=== PATIENT | female | born 1980 | race Caucasian/White ===

== ENCOUNTER 2022-04-14 14:41 | Emergency (ER) | payer OTHER, SELFPAY ==
[2022-04-14 14:52] VITALS: BP 126/84; PULSE 220; RESP 18; TEMP 35.8; O2SAT 98; BMI 29.1
--- NOTE | 2022-04-14 14:58 | ED.GENADULT ---
HPI - General Adult General Time Seen by Provider: 14:58 Date Seen: 04/14/22 Chief complaint: Arrhythmia/Palpitations Stated complaint: SVT Episode Time Seen by Provider: 04/14/22 14:42 Source: patient and RN notes reviewed Mode of arrival: ambulatory Limitations: no limitations History of Present Illness HPI narrative: This 42-year-old female felt her 3rd episode of SVT start today. This is the 3rd 1 within a week. Normally she can do Valsalva type maneuvers and has different maneuvers that she can get resolved, it usually always under 30 minutes. She has seen electrophysiology and they had discussed possibly doing ablation at some point. At that time however, was more infrequent. It has increased in frequency through the years. She is starting to have it more than once a year maybe having it every couple months. This last week she had it 3 times. She feels it more of a vibration or fluttering in her neck, she states it is almost like a choking sensation, no chest pain no shortness of breath. She basically admits she came in to get an EKG as they have never documented on EKG before. We did get an EKG and she indeed was in SVT. Nursing staff was attempting to get an IV in her and I was talking to her about adenosine. She did not want to do this as she states it always goes away in under 30 minutes. It has not been prolonged today. She will normally get it when she goes to stand up. A little over a month ago she did have COVID, she tested positive for about 13 days, has been negative for 2 weeks. She did test for cure. She got COVID on a work trip to [place]. She is completely symptom-free and has not had any symptoms for 2 weeks. Well we were discussing all of this she cardioverted on her own back to sinus rhythm, intermittent very mild sinus tachycardia but under 110. She does have propranolol at home but did not take it today. Given these spells resolve quickly, she is not even sure that propranolol does help. Related Data Home Medications Medication Instructions Recorded Confirmed loratadine 10 mg tablet (Allergy 10 mg PO QDAY 03/04/22 03/04/22 Relief (loratadine)) Previous Rx's Medication Instructions Recorded metoprolol succinate 25 mg 25 mg PO DAILY #90 tabs 04/14/22 tablet,extended release 24 hr Allergies Allergy/AdvReac Type Severity Reaction Status Date / Time tetracycline Allergy Mild Rash Verified 04/14/22 15:02 Review of Systems Status of ROS: Reports: 6 or more systems reviewed and unremarkable except as noted in History and below [facility] Medical History (Updated 04/14/22 @ 15:27 by Loyda Penaloza MD) History of tachycardia Pre-procedural laboratory examination Social History Smoking Status: Former smoker What tobacco products do you use: cigarettes Smoking quit date/years: <= 15 years ago Do you use any of these nicotine containing products: None Second hand tobacco smoke exposure: Yes How often do you have a drink containing alcohol: never How often do you have six or more drinks on one occasion: Never AUDIT-C Alcohol total score: 0 Non-prescribed substance use: denies use service: No Exam Const: Vital Signs, click to edit/add: Vital Signs - 24 hr 04/14/22 14:52 04/14/22 15:35 04/14/22 15:00 Temperature 96.5 F L Pulse Rate [Apical ] 220 H 101 H Respiratory Rate 18 16 Blood Pressure [Le ft Upper Arm] 126/84 131/81 120/87 Pulse Oximetry 98 98 Oxygen Delivery Me thod Room Air Documenting provider has reviewed patient's vital signs: yes Common normals: no apparent distress, average body habitus, oriented x3, no limitations, healthy appearing, alert and well nourished General appearance: cooperative, comfortable and well kempt HENMT: Common normals: normocephalic, head/scalp atraumatic, hearing grossly normal bilaterally and external ears normal Head and scalp: normocephalic and atraumatic External ear: external ears normal Eye: Common normals: PERRL, EOMs intact bilaterally, conjunctivae normal and no scleral icterus Conjunctiva: conjunctiva(e) normal Pupil: PERRL Neck & C-Spine: Common normals: full ROM, no lymphadenopathy, supple, no meningeal signs, no JVD and thyroid normal Thyroid: thyroid normal Resp: Common normals: normal respiratory effort, no retractions, no use of accessory muscles and clear to auscultation bilaterally Auscultation: clear to auscultation bilaterally Cardio: Common normals: no JVD, regular rate, regular rhythm, S1 normal heart sound, S2 normal heart sound, no gallops, no clicks and no murmurs Rate: regular rate Rhythm: regular rhythm Heart sounds: S1 normal and S2 normal GI: Common normals: Normal to inspection, nondistended, normoactive bowel sounds present, soft to palpation, non-tender, no hepatosplenomegaly and no masses Palpation: soft and no hepatosplenomegaly Extremity: Common normals: normal to inspection, full ROM, normal capillary refill, no joint enlargement, no clubbing, cyanosis or edema, no calf tenderness and no pedal edema Neuro: Common normals: oriented x3 Sensorium/orientation: alert Meningeal signs: no meningeal signs Psych: Appearance: well kempt Course Course Hospital Course: She cardioverted herself. We will check some labs. I will talk to Cardiology. Will keep her on pulse oximetry and cardiac monitoring while here. Consultations Consultation #1: Spoke with Dr. Allison from [facility], on-call Cardiology. Reviewed the situation with the current SVT that she has been having. He agreed with initiating low-dose suppression medication. He usually does go with a beta-andrea. We have discussed initiating metoprolol 25 mg of the extended release daily until she can follow up with Dr. Mitchell. He agreed with this plan. Time: 15:05 Vital Signs Vital signs: Initial Vital Signs Temperature 96.5 F L 04/14/22 14:52 Temperature Source Temporal Artery Scan 04/14/22 14:52 Pulse Rate 220 H 04/14/22 14:52 Pulse Rhythm 04/14/22 14:52 Respiratory Rate 18 04/14/22 14:52 Blood Pressure 126/84 04/14/22 14:52 Blood Pressure Mean 98 04/14/22 14:52 Blood Pressure Position Supine 04/14/22 14:52 Pulse Oximetry 98 04/14/22 14:52 Oxygen Delivery Method 04/14/22 14:52 Vital Signs Temperature 96.5 F L 04/14/22 14:52 Pulse Rate 220 H 04/14/22 14:52 Respiratory Rate 18 04/14/22 14:52 Blood Pressure 126/84 04/14/22 14:52 Pulse Oximetry 98 04/14/22 14:52 Oxygen Delivery Method 04/14/22 14:52 Temperature 96.5 F L 04/14/22 14:52 Pulse Rate 101 H 04/14/22 15:35 Respiratory Rate 16 04/14/22 15:35 Blood Pressure 131/81 04/14/22 15:35 Pulse Oximetry 98 04/14/22 15:35 Oxygen Delivery Method 04/14/22 14:52 Medical Decision Making Lab Data Lab results reviewed: Yes I reviewed the patient's lab results Labs: Lab Results 04/14/22 04/14/22 04/14/22 Range/Units 15:15 15:15 15:15 WBC 4.94 (4.50-11.00) K/uL RBC 4.44 (4.00-5.20) m/uL Hgb 13.3 (12.0-16.0) gm/dL Hct 38.7 (33.0-51.0) % MCV 87 (80-100) fL MCH 30 (26-34) pg MCHC 34 (32-36) gm/dL RDW Coeff of Ruben 11.9 (11.5-15.5) % Plt Count 251 (140-440) K/uL Neut % (Auto) 51.5 (42.0-72.0) % Lymph % (Auto) 36.8 (20-44) % Sanders % (Auto) 7.5 (0.0-11.0) % Eos % (Auto) 3.2 (0.0-7.0) % Baso % (Auto) 0.6 (0.0-3.0) % Neut # (Auto) 2.54 (1.7-7.0) K/uL Lymph # (Auto) 1.82 (0.90-2.90) K/uL Sanders # (Auto) 0.40 (0.00-0.90) K/UL Eos # (Auto) 0.16 (0.00-0.50) K/uL Baso # (Auto) 0.03 (0.00-0.30) K/uL Abs Immat Gran (auto) 0.02 (0.00-0.30) K/uL Sodium 138 (135-149) mmol/L Potassium 3.8 (3.6-5.1) mmol/L Chloride 105 (96-114) mmol/L Carbon Dioxide 23 (20-32) mmol/L BUN 9 (5-24) mg/dL Creatinine 0.7 (0.5-1.5) mg/dL Estimated Creat Clear 96.01 Estimated GFR 109 ml/min Glucose 154 H (60-115) mg/dL Calcium 8.2 L (8.4-10.6) mg/dL Magnesium 1.8 (1.5-2.6) mg/dL TSH 3.200 (0.270-4.200) uIU/mL POC Troponin I (0.01-0.04) ng/ml 04/14/22 Range/Units 15:15 WBC (4.50-11.00) K/uL RBC (4.00-5.20) m/uL Hgb (12.0-16.0) gm/dL Hct (33.0-51.0) % MCV (80-100) fL MCH (26-34) pg MCHC (32-36) gm/dL RDW Coeff of Ruben (11.5-15.5) % Plt Count (140-440) K/uL Neut % (Auto) (42.0-72.0) % Lymph % (Auto) (20-44) % Sanders % (Auto) (0.0-11.0) % Eos % (Auto) (0.0-7.0) % Baso % (Auto) (0.0-3.0) % Neut # (Auto) (1.7-7.0) K/uL Lymph # (Auto) (0.90-2.90) K/uL Sanders # (Auto) (0.00-0.90) K/UL Eos # (Auto) (0.00-0.50) K/uL Baso # (Auto) (0.00-0.30) K/uL Abs Immat Gran (auto) (0.00-0.30) K/uL Sodium (135-149) mmol/L Potassium (3.6-5.1) mmol/L Chloride (96-114) mmol/L Carbon Dioxide (20-32) mmol/L BUN (5-24) mg/dL Creatinine (0.5-1.5) mg/dL Estimated Creat Clear Estimated GFR ml/min Glucose (60-115) mg/dL Calcium (8.4-10.6) mg/dL Magnesium (1.5-2.6) mg/dL TSH (0.270-4.200) uIU/mL POC Troponin I 0.00 L (0.01-0.04) ng/ml Imaging Data Chest x-ray: Attestation: I have reviewed the pertinent imaging results. My impression: My preliminary review of her portable chest x-ray is without acute cardiopulmonary pathology, wait radiology over read. Radiologist's impression: Patient: JE GRACIA Facility:?[facility] Patient ID:?[id number] Site Patient ID:?[id number]. Site :?1980 Study:?XRay Chest PORTABLE-04/14/2022 3:33:09 PM Ordering Physician:Rey Scales Final Report: INDICATION: SVT. TECHNIQUE: Chest 1 views. COMPARISON: Chest x-ray from 07/21/2018. FINDINGS: Lungs: Clear lungs. No consolidation. Pleura: No pleural effusion or pneumothorax. Heart and Mediastinum: The cardiomediastinal silhouette is normal. The vessels are unremarkable. Bones: Unremarkable. IMPRESSION: No acute cardiopulmonary disease. Dictated by Gregorio Burton MD @ 04/14/2022 3:47:11 PM (Electronic Signature) ECG Data Attestation: I personally reviewed and interpreted this ECG as follows: (sinus tachycardia at 211 bpm.) Prior ECG tracings: not available for review Critical Care Time Critical Care Time Critical Care Time: No Discharge Plan Discharge Clinical Impression: Paroxysmal supraventricular tachycardia Condition: Stable Instructions: Supraventricular Tachycardia (ED) Additional Instructions: Start metoprolol and take daily to suppress the SVT. Need to call your hay chopper's office to get scheduled for followup. If you have further episodes that are not resolving within the 30 minutes that you typically you would expect them to, would recommend further evaluation. We will contact you if there is any concerns with the pending lab results at time of discharge. Activity Level: Activity as Tolerated Discharge Diet: Regular Prescriptions: New metoprolol succinate 25 mg tablet extended release 24 hr 25 mg PO DAILY Qty: 90 1RF No Action loratadine [Allergy Relief (loratadine)] 10 mg tablet 10 mg PO QDAY Follow Up/Referrals: Alysia Longoria MD [Primary Care Provider] - Stand Alone Forms: MyHealth Info Instructions
[2022-04-14 15:00] VITALS: BP 120/87
--- NOTE | 2022-04-14 15:16 | CRLHL7_ITS ---
For Patients: As a result of the Cures Act, medical imaging exams and procedure reports are released immediately into your electronic medical record. You may view this report before your referring provider. If you have questions, please contact your health care provider. INDICATION: SVT. TECHNIQUE: Chest 1 views. COMPARISON: Chest x-ray from 07/21/2018. FINDINGS: Lungs: Clear lungs. No consolidation. Pleura: No pleural effusion or pneumothorax. Heart and Mediastinum: The cardiomediastinal silhouette is normal. The vessels are unremarkable. Bones: Unremarkable. IMPRESSION: No acute cardiopulmonary disease. Dictated by Gregorio Burton MD @ 04/14/2022 3:47:11 PM (Electronically Signed)
[2022-04-14 15:25] LABS: Basophils Absolute Auto 0.03 K/uL (0.00-0.30); Basophils Percent Auto 0.6 % (0.0-3.0); Eosinophils Absolute Auto 0.16 K/uL (0.00-0.50); Eosinophils Percent Auto 3.2 % (0.0-7.0); Hematocrit 38.7 % (33.0-51.0); Hemoglobin* 13.3 gm/dL (12.0-16.0); Immature Granulocytes Abs Auto 0.02 K/uL (0.00-0.30); Lymphocytes Absolute Auto 1.82 K/uL (0.90-2.90); Lymphocytes Percent Auto 36.8 % (20-44); Mean Corpuscular HGB Conc 34 gm/dL (32-36); Mean Corpuscular Hemoglobin 30 pg (26-34); Mean Corpuscular Volume 87 fL (80-100); Monocytes Percent Auto 7.5 % (0.0-11.0); Neutrophils Absolute Auto 2.54 K/uL (1.7-7.0); Neutrophils Percent Auto 51.5 % (42.0-72.0); Platelet Count* 251 K/uL (140-440); RDW Coefficient of Variation % 11.9 % (11.5-15.5); Red Blood Count 4.44 m/uL (4.00-5.20); White Blood Count* 4.94 K/uL (4.50-11.00)
--- OUTSIDE RECORDS SUMMARY | 2022-04-14 15:28 | XMS_ITS | Encounter Summary ---
:1980 Author Organization [place] Address [address] [place] [address] Care Team Providers Name Role Phone Quan Jimenez MD Primary Care Provider Reason for Visit Reason Onset Date Comments Care 07/12/2004 preg confirmation Encounter Details Date Type Department Care Team Description 07/12/2004 Telephone [facility] Quan Jimenez M D Care (preg Clinic [address] confirmation) [address] [place] [address] [place] [address] Social History Tobacco Use Types Packs/Day Years Used Date Current Every Day Smoker 1 6 Spencer t: 04/28/2003 Alcohol Use Standard Drinks/Week Comments Yes 1.7 (1 standard drink = 0.6 oz pure alco hol) occasional drinks Sex Assigned at Date Recorded Not on file documented as of this encounter Miscellaneous Notes Telephone Encounter - 07/12/2004 8:34 AM VEGETABLE BUNCHER >> HOME OBANDO MonJul 12, 2004 8:37 AM Patient reports is 5 weeks ; wonders if ok to continue to take minocycline and to use nicoti ne patch; suggest appt for preg confirmation and to discuss smok cessation; hold minocycline until appt. Patient states will check with 's insurance and schedule preg confimation/smok cess a ppt with authorized provider. Home Obando RN >> HOME OBANDO MonJul 12, 2004 8:34 AM Staff Message copied by HOME OBANDO on 07/12/2004 at 8:34 AM ------ Message from: COTY BARRAGAN: 07/12/2004 at 8:06 AM Regarding: ts pt and has a question about first visit to [facility] [phone] documented in this encounter Plan of Treatment Not on filedocumented as of this encounter Visit Diagnoses Not on filedocumented in this encounter Care Teams Design Engineer Agricultural Equipment Relationship Specialty Start Date End Date Quan Jimenez MD PCP - General 01/02/03 02/12/[address] [place] [id number] documented as of this encounter
--- OUTSIDE RECORDS SUMMARY | 2022-04-14 15:28 | XMS_ITS | Encounter Summary ---
:1980 Author Organization [place] Address [facility] [place] [address] Care Team Providers Name Role Phone Quan Jimenez MD Primary Care Provider Reason for Visit Reason Onset Date Comments Medication Request 01/28/2004 Encounter Details Date Type Department Care Team Description 01/28/2004 Telephone [facility] Slime Benson, Medication Request Sanchez Rodriguez MD [address] [facility] [address] [place], [place] [address] [place], [place] [phone] (Wo rk) Social History Tobacco Use Types Packs/Day Years Used Date Current Every Day Smoker 1 6 Spencer t: 04/28/2003 Alcohol Use Standard Drinks/Week Comments Yes 1.7 (1 standard drink = 0.6 oz pure alco hol) occasional drinks Sex Assigned at Date Recorded Not on file documented as of this encounter Miscellaneous Notes Telephone Encounter - 01/28/2004 1:05 PM CDT >> SUSHMA GUTIERREZ MonFeb 04, 2004 12:09 PM Why was this sent to me? was this by mistake? Dr. Marvin has been dealing with this, thanks. >> MELANIE SCHRADER MonFeb 04, 2004 12:[address] Marvin, do you mind signing off on this and closing the encounter for Lilia GOMEZ at [facility] who called in Diflucan per message below? Sandeep Schrader RN >> LILIA CONTEH MonJan 30, 2004 1:20 PM Pt. calling back. Never got Diflucan called in. Is on Amox and has thick white dc and itching. Is current on paps, so I called in Diflucan 200mg #2 to pharmacy. Please sign and close. Lilia Conteh RN >> PAPITO MARVIN [facility] Jan 29, 2004 6:56 PM Melanie, Reviewing her visit from 12/22 i see that she had findings of BV on her pap. I wonder if that has been treated. She may need a wet prep to see what infection she actually has. Can you call her and see if she can come in and be checked by someone soon thanks, SHAYNE >> MELANIE SCHRADER MonJan 28, 2004 6:24 PM Papito, I spoke with patient who has tried OTC's for yeast in the past and they have caused rash,chapp ed skin. Patient is wondering if you will prescribe med for her. Thanks! Sandeep Schrader RN >> MELANIE SCHRADER MonJan 28, 2004 1:06 PM Please see message below, patient requesting RX for yeast infection, does she need to be seen first? Sandeep Schrader RN >> MELANIE SCHRADER [facility] Jan 28, 2004 1:05 PM Staff Message copied by MELANIE SCHRADER on 01/28/2004 at 1:05 PM ------ Message from: JORGE HODGES Created: 01/27/2004 at 12:21 PM Regarding: ef-meds Contact: can she get a rx for a yeast infection? was just in with ere for a px?? would like a call back , uses [facility] in [place] . documented in this encounter Plan of Treatment Not on filedocumented as of this encounter Visit Diagnoses Not on filedocumented in this encounter Care Teams Engineer Booster And Exhauster Relationship Specialty Start Date End Date Quan Jimenez MD PCP - General 01/02/03 02/12/[address] [place] [phone] documented as of this encounter
--- OUTSIDE RECORDS SUMMARY | 2022-04-14 15:28 | XMS_ITS | Encounter Summary ---
:1980 Author Organization [place] Address [address] [place] [address] Care Team Providers Name Role Phone Quan Jimenez MD Primary Care Provider Reason for Visit Reason Comments RECHECK Med check Confirmation Of Positive test at h ome Encounter Details Date Type Department Care Team Description [facility] ABSENCE OF [facility]EN[facility]ATION (Primary Dx); Clinic [address], [address] [address] [place], [place] [phone] (Wo rk) [address] [phone] Social History Tobacco Use Types Packs/Day Years Used Date Current Every Day Smoker Cigarettes 0.5 10 Spencer t: 04/28/2003 Alcohol Use Standard Drinks/Week Comments Yes 1.7 (1 standard drink = 0.6 oz pure alco hol) occasional drinks Sex Assigned at Date Recorded Not on file documented as of this encounter Last Filed Vital Signs Vital Sign Reading Time Taken Comments Blood Pressure 122/64 07/14/2004 4:10 PM TELEGRAPH PLANT MAINTAINER Pulse - - Temperature 37.2 ??C (99 ??F) 07/14/2004 4:10 PM TELEGRAPH PLANT MAINTAINER Respiratory Rate - - Oxygen Saturation - - Inhaled Oxygen Concentration - - Weight 61.7 kg (136 lb) 07/14/2004 4:10 PM TELEGRAPH PLANT MAINTAINER Height - - Body Mass Index - - documented in this encounter Progress Notes 07/14/2004 4:00 PM TELEGRAPH PLANT MAINTAINER SUBJECTIVE: Jeanine is a 24 year old female who presents for: on minocin/tazarac for acne, seeing seeing dr perez, doing well lmp = 10-7-04 - using NFP, noting breast tenderness only, no nausea, no other concerns, discussed exercise, smoking - desires to use use low dose patch, cleans cat litter boxes Patient Active Problem List: GENITAL HERPES NOS[054.10] ATYP SQ CELL CHNG UNDET SIG FAV DYS[795.02] ACNE NEC[706.1] ROUTINE MEDICAL EXAM[V70.0] Review of patient's past medical history indicates: ACNE NEC 1999 Comment: dr iglesias STOMACH ULCER NOS 1990 GENITAL HERPES NOS PAP SMEAR OF CERVIX W ASC-H POSSIBLE HSIL 97, 98 Comment: paps nl since OVARIAN CYST NEC/NOS 97, 99 ANIMAL BITE NEC 92 Comment: hosp x 1 week after cat bite Review of patient's past surgical history indicates: HISTORY OF SURGERY = NONE Current prescriptions: MINOCIN 100 MG OR CAPS 1 CAPSULE EVERY 12 HOURS Review of the patient's allergies finds: Doxycycline rash Review of Systems: As above otherwise negative Examination: GENERAL APPEARANCE: healthy, alert, no distress ASSESSMENT: 626.0 ABSENCE OF MENSTRUATION (primary encounter diagnosis) V22.2 PREG STATE, INCIDENTAL PLAN: Discussed treatment/modality options, including risk and benefits, she desires observation and discuss meds with derm, no cats litter boxes, continue exercising, stop smoking, get ob care established,start vit. See [facility] orders for further details. Follow up prn. documented in this encounter Nursing Notes 07/14/2004 4:00 PM CST >> ADRIANNA GARCIA 07/14/2004 4:11 pm Initial BP 122/64 Temp (Src) 99 (Oral) Wt 136 lbs (61.7kg) completed using BP cuff size: regular. Adrianna Garcia RN documented in this encounter Plan of Treatment Not on filedocumented as of this encounter Procedures Procedure Name Priority Date/Time Associated Diagnosis Comme nts ZZCL AFF HCG, QUAL Routine 07/14/2004 4:13 PM Absence Of Res ults for this URINE TELEGRAPH PLANT MAINTAINER Menstruation procedure are i n the results section. documented in this encounter Results (ABNORMAL) HCG, QUAL URINE (07/14/2004 4:13 PM TELEGRAPH PLANT MAINTAINER) [facility] Method Time Signature HCG Qual Urine Positive (A) NEG [facility] Specimen Anatomical Collection Method Collection Time Receive d Time (Source) Location / / Volume Laterality 07/14/2004 4:13 PM 4:14 TELEGRAPH PLANT MAINTAINER PM TELEGRAPH PLANT MAINTAINER Quan Jimenez MD LABORATORY Performing Organization Address City/State/ZIP Code Phon e Number [facility] [address] [place] [phone] [facility] documented in this encounter Visit Diagnoses Diagnosis Absence of menstruation - Primary state, incidental documented in this encounter Care Teams Statement Request Clerk Relationship Specialty Start Date End Date Quan Jimenez MD PCP - General 01/02/03 02/12/[address] [place] [phone] documented as of this encounter
--- OUTSIDE RECORDS SUMMARY | 2022-04-14 15:28 | XMS_ITS | Encounter Summary ---
:1980 Author Organization [place] Address [facility] [place] [address] Care Team Providers Name Role Phone [facility] Primary Care Provider [phone] Encounter Details Date Type Department Care Team Description 07/26/2020 Orders Only [facility] Ciera Tomlinson Encounter for Christie Kebede OR MD Virgilio screening for other [address] COLON RECTAL viral diseases [place], [place] SURGERY (Primary Dx) [phone] [facility] [phone] [place] [address] Social History Tobacco Use Types Packs/Day Years Used Date Former Smoker Cigarettes 0.5 10 Quit: 04/28/20 03 Smokeless Tobacco: Never Used Alcohol Use Standard Drinks/Week Comments Yes 1.7 (1 standard drink = 0.6 oz pure alco hol) occasional drinks Sex Assigned at Date Recorded Not on file COVID-19 Exposure Response Date Recorded In the last month, have you been in contact with No / Unsure 07/20/2020 3:28 PM DATABASE ADMIN someone who was confirmed or suspected to have Coronavirus / COVID-19? documented as of this encounter Plan of Treatment Scheduled Orders Name Type Priority Associated Diagnoses Order S chedule COVID-19 Virus Microbiology Routine Encounter for screening Ex pected: 07/26/2020 (Coronavirus) by for other viral (Approxi mate), PCR diseases Expires: 2020 documented as of this encounter Visit Diagnoses Diagnosis Encounter for screening for other viral diseases - Primary documented in this encounter Care Teams Gas Attendant Relationship Specialty Start Date End Date [facility] PCP - General 06/06/[address] [place] [phone] documented as of this encounter
--- OUTSIDE RECORDS SUMMARY | 2022-04-14 15:28 | XMS_ITS | Encounter Summary ---
:1980 Author Organization [place] Address [facility] [place] [address] Care Team Providers Name Role Phone [facility] Primary Care Provider [phone] Encounter Details Date Type Department Care Team Description 06/30/2020 Orders Only [facility] Ciera Tomlinson Encounter for Christie Kebede OR MD Virgilio screening for other [address] COLON RECTAL viral diseases [place], [place] SURGERY (Primary Dx) [id number] 2787 [facility] [phone] [place] [address] Social History Tobacco Use Types Packs/Day Years Used Date Current Every Day Smoker Cigarettes 0.5 10 Psencer t: 04/28/2003 Alcohol Use Standard Drinks/Week Comments Yes 1.7 (1 standard drink = 0.6 oz pure alco hol) occasional drinks Sex Assigned at Date Recorded Not on file documented as of this encounter Plan of Treatment Scheduled Orders Name Type Priority Associated Diagnoses Order S chedule COVID-19 Virus Microbiology Routine Encounter for screening Ex pected: 06/30/2020 (Coronavirus) by for other viral (Approxi mate), PCR diseases Expires: 2020 documented as of this encounter Visit Diagnoses Diagnosis Encounter for screening for other viral diseases - Primary documented in this encounter Care Teams Setter Cold Rolling Machine Relationship Specialty Start Date End Date [facility] - [facility] 06/06/16 [address] [place] [address] documented as of this encounter
--- OUTSIDE RECORDS SUMMARY | 2022-04-14 15:28 | XMS_ITS | Encounter Summary ---
:1980 Author Organization [place] Address [address] [place] [address] Care Team Providers Name Role Phone [facility] Primary Care Provider [phone] Encounter Details Date Type Department Care Team Description 07/24/2018 Orders Only [facility] ERR ONEOUS [facility] ENCOUNTER--DISREGARD [address] [facility] [address] [place] [address] Social History Tobacco Use Types Packs/Day Years Used Date Current Every Day Smoker Cigarettes 0.5 10 [place] t: 04/28/2003 Alcohol Use Standard Drinks/Week Comments Yes 1.7 (1 standard drink = 0.6 oz pure alco hol) occasional drinks Sex Assigned at Date Recorded Not on file documented as of this encounter Plan of Treatment Not on filedocumented as of this encounter Visit Diagnoses Diagnosis ERRONEOUS ENCOUNTER--DISREGARD - Primary documented in this encounter Care Teams Water Resource Engineering Specialist Relationship Specialty Start Date End Date [facility] - [facility] [place] [address] documented as of this encounter
--- OUTSIDE RECORDS SUMMARY | 2022-04-14 15:28 | XMS_ITS | Encounter Summary ---
:1980 Author Organization [place] Address [address] [place] [address] Care Team Providers Name Role Phone Clinic, [facility] Primary Care Provider [phone] Reason for Visit Reason Comments Tachycardia Encounter Details Date Type Department Care Team Description 06/06/2016 Emergency [facility] Ernie Holden S inus tachycardia [facility] Emergency Dep t [address] [facility] [place], [place] [address] [facility] [address] [place] [address] [phone] (Wo rk) Social History Tobacco Use Types [...] Sign Reading Time Taken Comments Blood Pressure 122/87 06/06/2016 9:07 AM CDT Pulse 105 06/06/2016 9:08 AM CDT Temperature 36.6 ??C (97.9 ??F) 06/06/2016 9:07 AM CDT Respiratory Rate 18 06/06/2016 9:07 AM CDT Oxygen Saturation 100% 06/06/2016 10:30 AM CDT Inhaled Oxygen Concentration - - Weight - - Height - - Body Mass Index - - documented in this encounter Discharge Instructions AttachmentsThe following attachments cannot be sent through Care Everywhere. TACHYCARDIA: PAT (IRISH)documented in this encounter Medications at Time of Discharge Medication Sig Dispensed Refills Start Date End Date levothyroxine (SYNTHROID) Take by mouth 0 07/20/2020 25 mcg/mL daily. documented as of this encounter ED Notes Ernie Holden MD - 06/06/2016 10:11 AM CDT History Chief Complaint: Tachycardia HPI Jeanine Samano is a 36 year old female who presents with tachycardia. The patient woke up this morning feeling unwell with some associated dizziness and shortness of breath. Blood pressure was 99/60 using 's monitor. Symptoms resolved spontaneously so she went to work, while there she had recurrence of symptoms. She works at [employer] so she went and used their machines which put her heart rate at 123 and blood pressure at 138/86 prompting visit to the emergency department. Patient does endorse current allergy symptoms including some congestion, post-nasal drip for which shehas been taking an occasional 12 hour Sudafed, last dose at 1000 yesterday. She does note missing a couple doses of her thyroid medication over the past week as well. She denies any chest pains, palpitations, dysuria, increased frequency of urination, rash, known sick contacts, or other complaints. Patient's LMP was within the last month and states she is 1,000% sure she is not . CARDIAC RISK FACTORS: Sex: F Tobacco: Current every day smoker Hypertension: Neg Hyperlipidemia: Neg Diabetes: Neg Family History: Neg PE/DVT RISK FACTORS: Sex: F Hormones: Neg Tobacco: Current every day smoker Cancer: Neg Travel: Neg Surgery: Neg Other immobilization: Neg Personal history: Neg Family history: Neg Allergies: Doxycycline - Rash Seasonal allergies Medications: Levothyroxine Claritin Past Medical History: Genital herpes Pap smear with ASC-H Ovarian cyst Gastric ulcer Thyroid disease Past Surgical History: History reviewed. No pertinent surgical history. Family History: Mother - Depression, age 49 from suicide, alcoholism Father - CAD, HTN, lipids Social History: Presents alone Tobacco use: Current every day smoker, 0.50 PPD for 10 years, last quit attempt 04/2003 Alcohol use: Occasional Marital Status: Review of Systems HENT: Positive for congestion and postnasal drip. Respiratory: Positive for shortness of breath. Cardiovascular: Negative for chest pain and palpitations. + tachycardia Genitourinary: Negative for dysuria and frequency. Skin: Negative for rash. Neurological: Positive for dizziness. All other systems reviewed and are negative. Physical Exam Patient Vitals for the past 24 hrs: BP Temp Temp src Pulse Heart Rate Resp SpO2 06/06/16 1030 - - - - 89 - 100 % 06/06/16 1015 - - - - 105 - 100 % 06/06/16 1002 - - - - 99 - 99 % 06/06/16 1001 - - - - 90 - 99 % 06/06/16 1000 - - - - 97 - 100 % 06/06/16 0959 - - - - 98 - 100 % 06/06/16 0950 - - - - 93 - 99 % 06/06/16 0949 - - - - 100 - 100 % 06/06/16 0948 - - - - 91 - 100 % 06/06/16 0908 - - - 105 - - - 06/06/16 0907 122/87 mmHg 97.9 ??F (36.6 ??C) Temporal 125 - 18 100 % Physical Exam Nursing note and vitals reviewed. Constitutional: Cooperative. HENT: Mouth/Throat: Moist mucous membranes. Eyes: EOMI, nonicteric sclera Cardiovascular: Tachycardic, regular rhythm, no murmurs, rubs, or gallops Pulmonary/Chest: Effort normal and breath sounds normal. No respiratory distress. No wheezes. No rales. Abdominal: Soft. Nontender, nondistended, no guarding or rigidity. BS present. Musculoskeletal: Normal range of motion. Neurological: Alert. Moves all extremities spontaneously. Skin: Skin is warm and dry. No rash noted. Psychiatric: Normal mood and affect. Emergency Department Course ECG (09:38:25): Rate 101 bpm. CO interval 146. QRS duration 86. QT/QTc 344/446. P-R-T axes 75 -9 52. Sinus tachycardia. Otherwise normal ECG. Interpreted at 0958 by Ernie Holden MD. Imaging: Radiographic findings were communicated with the patient who voiced understanding of the findings. XR Chest: IMPRESSION: Cardiac silhouette and pulmonary vasculature are within normal limits. No focal airspacedisease, pleural effusion or pneumothorax. BRADLEY CAMACHO Preliminary result per radiology. Laboratory: CBC: WNL (WBC 5.4, HGB 14.8, PLT 229) BMP: Calcium 8.4 (L) ow WNL (Creatinine 0.82) D-dimer: 0.4 TSH: 2.53 1035: Troponin: <0.015 UA: Spec gravity 1.001 (L), Mucous present, Amorphous crystals few, o/w Negative UPT: Negative Emergency Department Course: Past medical records, nursing notes, and vitals reviewed. 1011: I performed an exam of the patient as documented above. IV inserted and blood drawn. The patient was placed on continuous cardiac monitoring and pulse oximetry. The patient was sent for a XR while in the emergency department, findings above. I rechecked the patient. Explained findings to patient. I personally reviewed the laboratory results with the Patient and answered all related questions prior to discharge. 1227: I rechecked the patient. Findings and plan explained to the Patient. Patient discharged home with instructions regarding supportive care, medications, and reasons to return. The importance of close follow-up was reviewed. Impression & Plan Medical Decision Making: Jeanine Samano is a 36 year old female presenting with complaint of tachycardia and not feeling well. The patient is without other symptoms. Differential diagnosis was wide and includedinfection in terms of pneumonia, cellulitis, UTI, PE, hyperthyroidism, dehydration, viral illness, among other processes. The patient's workup is completely normal here. The patient's TSH is normal. Chest XR and urinalysis are also normal. The patient was give IV fluids and patient's heart rate was improved into the 80's. Patient's d-dimer was also normal ruling out PE. At this time, I am not sure ofthe etiology of patient's tachycardia however she does feel improved here in the emergency department. Patient may have had some dehydration, or she may be suffering some unknown viral illness, or she may have some process that is not fully presented itself. She is encouraged to return to the emergency department for any worsening symptoms or new symptoms. All questions were answered and she is in agreement with the plan. Diagnosis: ICD-10-CM 1. Sinus tachycardia R00.0 Resolved Disposition: Discharged to home. Gary Sharma 06/06/2016 [facility] EMERGENCY DEPARTMENT I, Gary Sharma, am serving as a scribe at 10:11 AM on 06/06/2016 to document services personally performed by Ernie Holden MD based on my observations and the provider's statements to me. Ernie Holden MD 06/07/16 1450 Gisela Rankin RN - 06/06/2016 9:07 AM CDT Patient presents to the ED reporting she awoke feeling generally unwell this morning. States took BPand pulse at home and noted HR in the 120's. States symptoms resolved, but then occurred again whileat work. Denies chest pain or palpitations, but does report mild SOB. documented in this encounter Plan of Treatment Not on filedocumented as of this encounter Procedures Procedure Name Priority Date/Time Associated Comments Diagnosis XR CHEST 2 VIEWS STAT 06/06/2016 11:07 Results for this AM CDT procedure are i n the results section. HCG QUALITATIVE URINE STAT 06/06/2016 10:46 Re sults for this AM CDT procedure are i n the results section. ROUTINE UA WITH STAT 06/06/2016 10:46 Results for this MICROSCOPIC REFLEX TO AM CDT proced ure are in CULTURE the results section. CBC WITH PLATELETS & STAT 06/06/2016 10:35 Res ults for this DIFFERENTIAL AM CDT procedure are i n the results section. TSH WITH FREE T4 STAT 06/06/2016 10:35 Results for this REFLEX AM CDT procedure are i n the results section. TROPONIN I STAT 06/06/2016 10:35 Results for this AM CDT procedure are i n the results section. D DIMER QUANTITATIVE STAT 06/06/2016 10:35 Res ults for this AM CDT procedure are i n the results section. BASIC METABOLIC PANEL STAT 06/06/2016 10:35 Re sults for this AM CDT procedure are i n the results section. EKG 12-LEAD, TRACING STAT 06/06/2016 9:38 AM R esults for this ONLY CDT procedure are i n the results section. documented in this encounter Results XR Chest 2 Views (06/06/2016 11:07 AM CDT) Anatomical Region Laterality Modality Chest Computed Radiography Specimen (Source) Anatomical Location Collection Method / Collectio n Time Received Time / Laterality Volume Impressions 06/06/2016 11:13 AM CDT IMPRESSION: Cardiac silhouette and pulmonary vasculature are within normal limits. No focal airspace disease , pleural effusion or pneumothorax. BRADLEY CAMACHO Narrative 06/06/2016 11:13 AM CDT XR CHEST 2 VW 06/06/2016 11:07 AM HISTORY: Chest pain COMPARISON: CT dated 02/13/2012 Procedure Note Bradley Camacho MD - 06/06/2016 XR CHEST 2 VW 06/06/2016 11:07 AM HISTORY: Chest pain COMPARISON: CT dated 02/13/2012 IMPRESSION: Cardiac silhouette and pulmo nary vasculature are within normal limits. No focal airspace disease , pleural effusion or pneumothorax. BRADLEY CAMACHO Ernie Holden MD IMG DIAGNOSTIC IMAGING ORDER YOSSI HCG qualitative urine (06/06/2016 10:46 AM CDT) athologist Signature HCG Qual Urine Negative NEG [facility] Specimen Anatomical Collection Method Collection Time Receive d Time (Source) Location / / Volume Laterality Urine specimen URINE SPECIMEN 06/06/2016 10:46 016 (specimen) OBTAINED BY CLEAN AM CDT 10:53 AM C DT CATCH PROCEDURE / Unknown Ernie Holden MD LAB - URINE ORDERABLES Performing Organization Address City/State/ZIP Code Phon e Number M [facility] [address] [facility] [address] [phone] (ABNORMAL) UA with Microscopic reflex to Culture (06/06/2016 10:46 AM CDT) Patholo gist Method Time Signature Color Urine Straw [facility] Appearance Urine Clear [facility] Glucose Urine Negative NEG mg/dL [facility] Bilirubin Urine Negative NEG [facility] Ketones Urine Negative NEG mg/dL [facility] Specific [place] 1.001 (L) 1.003 - [place] Urine 1.035 [facility] Blood Urine Negative NEG [facility] pH Urine 6.0 5.0 - 7.0 [facility] Protein Albumin Negative NEG mg/dL [place] Urine [facility] Urobilinogen Normal 0.0 - 2.0 [place] mg/dL mg/dL [facility] Nitrite Urine Negative NEG [facility] Leukocyte Negative NEG [place] Esterase Urine [facility] Source Midstream [facility] WBC Urine 0 0 - 2 [place] /[facility] RBC Urine 0 0 - 2 [facility] Squamous <1 0 - 1 [place] Epithelial /HPF /HPF [facility] Mucous Urine Present (A) NEG /LPF [facility] Amorphous Few (A) NEG /HPF [place] Crystals [facility] Specimen Anatomical Collection Method Collection Time Receive d Time (Source) Location / / Volume Laterality Urine specimen URINE SPECIMEN 06/06/2016 10:46 016 (specimen) OBTAINED BY CLEAN AM CDT 10:53 AM C DT CATCH PROCEDURE / Unknown Ernie Holden MD LAB - URINE ORDERABLES Performing Organization Address City/[facility]/ZIP [facility] Phon e Number [facility] [address] [phone] [place] [address] [address] [place] [address] [address] 7, [facility] [phone] TSH with free T4 reflex (06/06/2016 10:35 AM CDT) athologist Signature TSH 2.53 0.40 - 4.00 [facility] Specimen Anatomical Collection Method Collection Time Receive d Time (Source) Location / / Volume Laterality Blood specimen 06/06/2016 10:35 6 (specimen) AM CDT 10:39 AM CDT Ernie Holden MD LAB - BLOOD ORDERABLES Performing Organization Address City/[facility]/ZIP [facility] Phon e Number [facility] [address] [address] [phone] [place] [address] [address] [address], [facility] [phone] D dimer quantitative (06/06/2016 10:35 AM CDT) athologist Signature D Dimer 0.4 0.0 - 0.50 [facility] ug/ml [facility] Comment: This D-dimer assay is intended for use i n conjuntion with a clinical pretest probability assessment model to exclude pulmonary embolism (PE) and as an aid in the diagnosis of deep venous thrombo sis (DVT) in outpatients suspected of PE or DVT. The cut-off value is 0.5??g/mL FE. Specimen Anatomical Collection Method Collection Time Receive d Time (Source) Location / / Volume Laterality Blood specimen 06/06/2016 10:35 6 (specimen) AM CDT 10:39 AM CDT Ernie Holden MD LAB - BLOOD ORDERABLES Performing Organization Address [facility] Phon e Number [facility] [address] [place], [place] [address] [place] [address] [phone] Troponin I (06/06/2016 10:35 AM CDT) Patholo gist Method Time Signature Troponin I ES <0.015 0.000 - [place] The 99th percentile for uppe r reference range is 0.045 ug/L. ??Troponin values in 0.045 [facility] the range of 0.045 - 0.120 ug/L may be associated wit h risks of adverse ug/L HOSPITAL clinical events. Specimen Anatomical Collection Method Collection Time Receive d Time (Source) Location / / Volume Laterality Blood specimen 06/06/2016 10:35 6 (specimen) AM CDT 10:39 AM CDT Ernie Holden MD LAB - BLOOD ORDERABLES Performing Organization Address [facility] Phon e Number [facility] [address] [place], [place] [address] [place] [address] [phone] (ABNORMAL) Basic metabolic panel (06/06/2016 10:35 AM CDT) athologist Signature Sodium 138 133 - 144 [place] mmol/L [facility] Potassium 4.0 3.4 - 5.3 [place] mmol/L [facility] Chloride 107 94 - 109 [place] mmol/L [facility] Carbon Dioxide 25 20 - 32 [place] mmol/L [facility] Anion Gap 6 3 - 14 [place] mmol/L [facility] Glucose 92 70 - 99 [place] mg/dL [facility] Urea Nitrogen 9 7 - 30 [place] mg/dL [facility] Creatinine 0.82 0.52 - [place] 1.04 mg/dL [facility] GFR Estimate 78 >60 [place] mL/min/1.[address] Comment: Non GFR Calc GFR Estimate If Black >90 >60 mL/min/1.7m2 F [facility] GFR Calc HOSP ITAL Calcium 8.4 (L) 8.5 - 10.1 mg/dL [facility] Specimen Anatomical Collection Method Collection Time Receive d Time (Source) Location / / Volume Laterality Blood specimen 06/06/2016 10:35 6 (specimen) AM CDT 10:39 AM CDT Ernie Holden MD LAB - BLOOD ORDERABLES Performing Organization Address City/State/ZIP Code Phon e Number [address] [place] [address] [address] [address] [place] [phone] CBC with platelets differential (06/06/2016 10:35 AM CDT) [facility] Method Time Signature WBC 5.4 4.0 - [place] 11.0 [facility] 10e9/L [facility] RBC Count 4.88 3.8 - 5.2 [place] 10e12/L [facility] Hemoglobin 14.8 11.7 - [place] 15.7 g/dL [facility] Hematocrit 43.5 35.0 - [facility] 47.0 % [facility] MCV 89 78 - 100 [facility] MCH 30.3 26.5 - [facility] 33.0 pg [facility] MCHC 34.0 31.5 - [place] 36.5 g/dL [facility] RDW 11.9 10.0 - [place] 15.0 % [facility] Platelet Count 229 150 - [address] Diff Method Automated [facility] % Neutrophils 66.9 % [facility] % Lymphocytes 24.4 % [facility] % Monocytes 6.3 % [facility] % Eosinophils 0.9 % [facility] % Basophils 0.9 % [facility] % Immature 0.6 % [place] Granulocytes [facility] Nucleated RBCs 0 0 /100 [facility] Absolute 3.6 1.6 - 8.3 [place] Neutrophil 10e/L [facility] Absolute 1.3 0.8 - 5.3 [place] Lymphocytes 10e9/L [facility] Absolute 0.3 0.0 - 1.3 [place] Monocytes 10e9/L [facility] Absolute 0.1 0.0 - 0.7 [place] Eosinophils [address] Absolute 0.1 0.0 - 0.2 [place] Basophils [address] [place] [address] Abs Immature 0.0 0 - 0.4 [place] Granulocytes [address] [place] [address] Absolute 0.0 [place] Nucleated RBC [facility] Specimen Anatomical Collection Method Collection Time Receive d Time (Source) Location / / Volume Laterality Blood specimen 06/06/2016 10:35 6 (specimen) AM CDT 10:39 AM CDT Ernie Holden MD LAB - BLOOD ORDERABLES Performing Organization Address City/State/ZIP Code Phon e Number [place] [address] [address] [address] [place] [address] [phone] EKG 12 lead (06/06/2016 9:38 AM CDT) [facility] gist Method Time Signature Interpretation ECG Click View RADIOLOGY Image link RESULTS to view waveform and result Specimen (Source) Anatomical Collection Method Collection Time Re ceived Time Location / / Volume Laterality 06/06/2016 9:38 AM CDT Briana Hernandez MD ECG ORDERABLES Performing Organization Address City/[facility]/ZIP [facility] Phon e Number RADIOLOGY RESULTS documented in this encounter Visit Diagnoses Diagnosis Sinus tachycardia Other specified cardiac dysrhythmias documented in this encounter Active and Recently Administered Medications Care Teams Mechanic Chief Relationship Specialty Start Date End Date Clinic, [facility] PCP - General 06/06/16 [address] [place] [address] documented as of this encounter
--- OUTSIDE RECORDS SUMMARY | 2022-04-14 15:28 | XMS_ITS | Encounter Summary ---
:1980 Author Organization [place] Address [address] [place] [address] Care Team Providers Name Role Phone Quan Jimenez MD Primary Care Provider Encounter Details Date Type Department Care Team Description 01/16/2004 Orders Only [facility] Quan Jimenez M D DIAGNOSIS NOT YET Clinic [place] [address] [place] [address] (Primary Dx) [address] [place] [address] [place], [place] [phone] (Wo rk) [address] [phone] Social History Tobacco Use Types Packs/Day Years [...] Name Priority Date/Time Associated Diagnosis Comme nts ZZ CONSULT DERMATOLOGY Routine 01/16/2004 DIAGNOSIS NOT Y ET DEFINED documented in this encounter Results CONSULT DERMATOLOGY (01/16/2004) Specimen (Source) Anatomical Location Collection Method / Collectio n Time Received Time / Laterality Volume 01/16/2004 Narrative This result has an attachment that is no t available. Quan Jimenez MD REFERRAL documented in this encounter Visit Diagnoses Diagnosis DIAGNOSIS NOT YET DEFINED - Primary documented in this encounter Care Teams Clock And Watch Assembler Relationship Specialty Start Date End Date Quan Jimenez MD PCP - General 01/02/03 02/12/[address] [place] [address] [id number] documented as of this encounter
--- OUTSIDE RECORDS SUMMARY | 2022-04-14 15:28 | XMS_ITS | Clinical Summary ---
:1980 Author Organization [facility] Address [address] [place] [address] Care Team Providers Name Role Phone Clinic, [facility] Primary Care Provider [phone] Allergies Active Allergy Reactions Severity Noted Date Comments Doxycycline 01/02/2003 rash Medications No known medications Active Problems Problem Noted Date Routine general medical examination at [facility] acility 12/23/2003 Genital herpes 01/02/2003 Overview: Problem list name updated by automated p rocess. Provider to review Papanicolaou smear of cervix with atypical squamous ce lls cannot exclude 01/02/2003 high grade squamous intraepithelial lesion (ASC-H) Other acne 01/02/2003 Immunizations Name Administration Dates Next Due TD (ADULT, 7+) 03/27/2000 Family History Medical History Relation Comments Heart Disease Father cad, htn Hypertension Father Lipids Father Respiratory Maternal Grandfather copd Depression Maternal Grandmother young suicide, prescription drugs, drug seeker. Depression Mother 49 suicide, alc oholic Cancer - colorectal Paternal Grandfather late 80's Relation Status Comments Father Maternal Grandfather Maternal Grandmother Mother Paternal Grandfather Social History Tobacco Use Types Packs/Day Years Used Date Former Smoker Cigarettes 0.5 10 Quit: 04/28/20 03 Smokeless Tobacco: Never Used Alcohol Use Standard Drinks/Week Comments Yes 1.7 (1 standard drink = 0.6 oz pure alco hol) occasional drinks Sex Assigned at Date Recorded Not on file Last Filed Vital Signs Vital Sign Reading Time Taken Comments Blood Pressure 122/87 06/06/2016 9:07 AM CDT Pulse 105 06/06/2016 9:08 AM CDT Temperature 36.6 ??C (97.9 ??F) 06/06/2016 9:07 AM CDT Respiratory Rate 18 06/06/2016 9:07 AM CDT Oxygen Saturation 100% 06/06/2016 10:30 AM CDT Inhaled Oxygen Concentration - - Weight 61.7 kg (136 lb) 07/14/2004 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 Height - - Body Mass Index - - Plan of Treatment Health Maintenance Due Date Last Done Comments ADVANCE CARE PLANNING 1980 ANNUAL REVIEW OF HM ORDERS 1978 COVID-19 Vaccine (#1) 1978 HIV SCREENING 1993 HEPATITIS C SCREENING 02/21/1996 PREVENTIVE CARE VISIT 12/22/2004 12/23/2003 PAP 12/22/2006 12/23/2003, 05/29/2001 DTAP/TDAP/TD IMMUNIZATION 03/27/2010 03/27/2000 (2 - Td or Tdap) PHQ-2 (once per calendar 08/28/2021 year) INFLUENZA VACCINE (#1) 2022 05/25/2018, 05/24/2016, 06/12/2015, Additional history exists HEPATITIS B IMMUNIZATION Aged Out 07/29/2013, 12/20/2012, No longer eligible 10/30/2012 based on patient 's age to complete this topic IPV IMMUNIZATION Aged Out No longer eligi ble based on patient 's age to complete this topic MENINGITIS IMMUNIZATION Aged Out No longe r eligible based on patient 's age to complete this topic Pneumococcal Vaccine: Aged Out No longer eligible Pediatrics (0 to 5 Years) based on patient's age and At-Risk Patients (6 to to co mplete this topic 64 Years) Insurance Payer Benefit Plan / Subscriber ID Effective Dates Phone Addre ss Type Group BCBS BCBS OF [place] [id number] 2016-Andrea [phone] [address] [address] Indemnity t 0 [place] [id number] Advance Directives For more information, please contact: [phone] Latest Code Status on File Code Status Date Activated Date Inactivated Comments 12/08/2003 8:46 AM 12/08/2003 8:46 AM Care Teams Air Chief Marshal Relationship Specialty Start Date End Date Clinic, [facility] PCP - General 06/06/[address] [place] [id number]
--- OUTSIDE RECORDS SUMMARY | 2022-04-14 15:28 | XMS_ITS | Encounter Summary ---
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 documented as of this encounter Plan of Treatment Not on filedocumented as of this encounter Visit Diagnoses Not on filedocumented in this encounter Care Teams Automotive Tire Technician Relationship Specialty Start Date [facility] - [facility] [place] [id number] documented as of this encounter
--- OUTSIDE RECORDS SUMMARY | 2022-04-14 15:28 | XMS_ITS | Encounter Summary ---
:1980 Author Organization [facility] Address [address] [place] [id number] Care Team Providers Name Role Phone No Ref-Primary, Physician Primary Care Provider [phone] Reason for Visit Reason Comments Chest Pain 35 wks preg. Encounter Details Date Type Department Care Team Description 02/13/2012 [facility] Leif Rubi nd, MD Chest pain Emergency Dept [facility] [address] [facility] [address] [place] [address] [place], [place] [id number] (Wo rk) Social History Tobacco Use Types [...] Sign Reading Time Taken Comments Blood Pressure 101/65 02/13/2012 3:45 PM CDT Pulse - - Temperature - - Respiratory Rate 18 02/13/2012 3:45 PM CDT Oxygen Saturation 96% 02/13/2012 3:45 PM CDT Inhaled Oxygen Concentration - - Weight - - Height - - Body Mass Index - - documented in this encounter Discharge Instructions Discharge InstructionsLeif Lang MD - 02/13/2012 3:49 PM CDT Discharge Instructions Chest Pain You have been seen today for chest pain or discomfort. At this time, your doctor has found no signs that your chest pain is due to a serious or life-threatening condition, (or you have declined more testing and/or admission to the hospital). However, sometimes there is a serious problem that does not show up right away. Your evaluation today may not be complete and you may need further testing and evaluation. You need to follow-up with your regular doctor within 3 days. Return to the Emergency Department if: Your chest pain changes, gets worse, starts to happen more often, or comes with less activity. You are short of breath. You get very weak or tired. You pass out or faint. You have any new symptoms, like fever, cough, numb legs, or you cough up blood You have anything else that worries you. Until you follow-up with your regular doctor please do the following: Take one aspirin daily unless you have an allergy or are told not to by your doctor. If a stress test appointment has been made, go to the appointment. If you have questions, contact your regular doctor. If your doctor today has told you to follow-up with your regular doctor, it is very important that you make an appointment with your clinic and go to the appointment. If you do not follow-up with your primary doctor, it may result in missing an important development which could result in permanent injury or disability and/or lasting pain. If there is any problem keeping your appointment, call your doctor or return to the Emergency Department. Remember that you can always come back to the Emergency Department if you are not able to see your regular doctor in the amount of time listed above, if you get any new symptoms, or if there is anything that worries you. documented in this encounter Medications at Time of Discharge Medication Sig Dispensed Refills Start Date End Date levothyroxine (SYNTHROID) Take by mouth 0 07/20/2020 25 mcg/mL daily. MINOCIN 100 MG OR CAPS 1 CAPSULE EVERY 12 28 0 07/1406/06/2016 HOURS PRENATE ELITE 90-600-400 1 po qd 100 3 07/14/2004 06/06/2016 MG-MCG-MCG OR TABS documented as of this encounter ED Notes Jeny Quiroz RN - 02/13/2012 3:15 PM CDT Pt transported to [place]. Jeny Quiroz RN - 02/13/2012 1:50 PM CDT Pt states she has not taken any viagra, cialis, revatio, or levitra. Jeny Quiroz RN - 02/13/2012 1:33 PM CDT ABCs intact. Pt states RU chest pain starting around noon. Intermittent pain lasting 5-10 seconds. Pt states she vomited once guard captain. Denies nausea at present. Jeny Quiroz RN - 02/13/2012 1:33 PM CDT Labs drawn with IV insertion and held Jeny Quiroz RN - 02/13/2012 1:33 PM CDT at bedside. Leif Lang MD - 02/13/2012 1:25 PM CDT History Chief Complaint: Chest Pain HPI Jeanine Samano is a 31 year old female who is , who presents with chest pain. The patient reports being 35 weeks . She states that when she woke up this morning she was short of breath, similar to that which she has experienced throughout the 3rd trimester, but this has since improved. She reports that during lunch she began having intermittent chest pains every 5 minutes, lasting for 5-10 seconds each time. She attempted to lay Trendelenburg and drink fluids, but it didnot improve her symptoms. She called her BRADLEY LINEBACKER CREWMEMBER, who referred her to the ER for further evaluation. The patient denies any shortness of breath, abdominal pain, fever, or any other physical complaints at this time. The patient has had some leg swelling at times during the , and uses compression stockings. It has seemed to be equal to both legs, and there is no associated leg pain. Allergies: Doxycycline. Medications: Synthroid. Minocin. Prenate elite. Past Medical History: Acne. Stomach ulcer. Genital herpes. ASCUS favor dysplasia. Ovarian cysts. Past Surgical History: The patient denies any relevant surgical history. Family History: Positive for depression, CAD, hypertension, lipids, and COPD. Social History: The patient reports being a current smoker, who drinks occasionally. Review of Systems Constitutional: Negative for fever. Respiratory: Negative for shortness of breath. Cardiovascular: Positive for chest pain and leg swelling (bilateral). Gastrointestinal: Negative for abdominal pain. All other systems reviewed and are negative. Physical Exam First Vitals: ED Triage Vitals Enc Vitals Group BP -- 129/83 Resp 18 Pulse -- 97 SpO2 -- 96% Physical Exam Constitutional: She is oriented to person, place, and time. HENT: Head: Normocephalic and atraumatic. Nose: Nose normal. Mouth/Throat: Mucous membranes are normal. Eyes: EOM are normal. Pupils are equal, round, and reactive to light. Cardiovascular: Regular rhythm, S1 normal and S2 normal. Exam reveals no gallop and no friction rub. No murmur heard. Tachycardic. Pulmonary/Chest: Effort normal and breath sounds normal. Abdominal: Soft. She exhibits no distension. There is no tenderness. Genitourinary: Abdomen is gravid, consistent with dates. Musculoskeletal: Normal range of motion. Trace pedal edema bilaterally. Neurological: She is alert and oriented to person, place, and time. She has normal strength. Skin: Skin is warm and dry. No rash noted. Emergency Department Course EKG: Vent Rate: 105 BPM VA Interval: 122 ms QRS duration: 82 ms QT/QTc: 326/430 ms R [place]: 10 Findings: Sinus tachycardia. Nonspecific ST abnormality. Abnormal EKG. Time read: 1:27 PM Imaging: CT Chest, IV contrast: No pulmonary embolism demonstrated. No thoracic aortic dissection or aneurysm. Reading per Dr. Hernnadez, radiology. Final reading pending. Laboratory: CBC: WBC 7.7 (wnl) HGB 11.9 (wnl) PLT 146 (low) HCT 34.4 (low) Granulocytes 0.5 (high) o/w WNL BMP: Cr 0.56 (wnl) Potassium 3.3 (low) Glucose 100 (high) Calcium 8.1 (low) BUN 3 (low) o/w WNL D-dimer: 1.0 (high) Interventions: Tylenol, 1000 mg, PO ED Course: I reviewed the patient's medical record. A peripheral IV was established. The patient was placed on continuous pulse oximetry and cardiac monitoring. An NPO order was given. 1:28 PM The patient was seen and examined by myself. I discussed the course of care with the patientincluding laboratory and diagnostic studies. She understands and is agreeable to the plan. 2:09PM I discussed the results of the patient's blood work and need for a CT scan. I had a long discussion regarding the risks and benefits of the test, as well as those of potential missed PE. The patient spoke with her OBGYN, who recommended proceeding with the test. CT was performed shortly after. Recheck. The patient is resting comfortably and is in no pain or distress after the above interventions. I discussed with the patient the results of the above procedures and she will be discharged to home . All questions were answered prior to discharge, and the patient was told to follow up with primary care doctor per discharge instructions. Reasons for return as well as follow up were reviewed with the patient. She understands and agrees to this plan. Impression & Plan Medical Decision Making: This is a 31 year old female who presents with sharp anterior chest pain. She was initially tachycardic, but has had normalization of vital signs without medical intervention. The differential diagnosis is broad. Her pain is very atypical for ACS and she has a non ischemic EKG. There are no signs or symptoms to suggest pneumonia or pneumothorax. Given she is , PE was considered. D-dimerwas run, understanding the decreased utility of this with the common occurrence of false positives. Her test was positive, so CT to rule out PE was performed, after extensive discussion regarding the potential benefits of the testing as well as the potential life threatening results of missed PE. After the patient discussed this with her BRADLEY LINEBACKER CREWMEMBER she consented to the test. There was no evidence of PE on this study and on re-evaluation the patient is pain free. Given her stable vital signs and through workup, I do believe the patient is safe for discharge. This may be musculoskeletal pain due to increased volume and respiratory rate during . She has no acute distress at this time and I believe she is safe for discharge. Diagnosis: 1. Chest pain 2. Disposition: Home in improved condition with plan for follow-up with BRADLEY LINEBACKER CREWMEMBER in 3 days. Return with increased pain, fever, shortness of breath, or any new or worsening symptoms. I, Lety Pelayo, am serving as a scribe on 02/13/2012 at 1:28 PM to document services personallyperformed by Dr. Lang, based on my observations and the provider's statements to me. Leif Lang MD 02/14/12 1203 Nikkie Tuttle RN - 02/13/2012 1:17 PM CDT Chest pain; 35 wks ; no contraction / abd pain; aox3 abc's intact documented in this encounter Miscellaneous Notes Initial Assessments - Abstract, Provider - 02/15/2012 7:29 PM CDT documented in this encounter Plan of Treatment Not on filedocumented as of this encounter Procedures Procedure Name Priority Date/Time Associated Comments Diagnosis CT CHEST PULMONARY STAT 02/13/2012 3:31 PM Res ults for this EMBOLISM W CONTRAST CDT procedur e are in the results section. CBC WITH PLATELETS & STAT 02/13/2012 1:30 PM R esults for this DIFFERENTIAL CDT procedure are i n the results section. D DIMER QUANTITATIVE STAT 02/13/2012 1:30 PM R esults for this CDT procedure are i n the results section. BASIC METABOLIC PANEL STAT 02/13/2012 1:30 PM Results for this CDT procedure are i n the results section. HIM ECG SCAN STAT 02/13/2012 documented in this encounter Results Chest CT, IV contrast only - PE protocol (02/13/2012 3:31 PM CDT) Anatomical Region Laterality Modality Chest, SUBRAD CT BODY, UMP CT CHEST Comp uted Tomography Specimen (Source) Anatomical Collection Method Collection Time Re ceived Time Location / / Volume Laterality 02/13/2012 3:31 PM CDT Impressions 02/13/2012 3:[address] CHEST WITH CONTRAST Feb 13, 2012 3:31 :00 PM COMPARISON: None. HISTORY: 35 weeks TECHNIQUE: Volumetric helical acquisitio n of CT images of the chest from the lung apices to the kidneys were acquired after the administration of 80 ??mL of Isovue-370 IV contrast. FINDINGS: There is no ??pulmonary emboli sm. Lungs are clear of infiltrate. The heart is not enlarged. ? ?Thoracic aorta is atherosclerotic ??without evidence of di ssection or aneurysm. There is no pleural or pericardial effusion. ??Th ere is no pneumothorax. Adrenal glands are normal. ??Remainder o f the visualized upper abdomen is unremarkable. IMPRESSION: 1. No pulmonary embolism demonstrated. 2. No thoracic aortic dissection or aneu rysm. Leif Lang MD IMG CT ORDERABLES (ABNORMAL) D dimer quantitative (02/13/2012 1:30 PM CDT) athologist Signature D Dimer 1.0 (H) 0.0 - 0.50 [facility] ug/ml [facility] Specimen Anatomical Collection Method Collection Time Receive d Time (Source) Location / / Volume Laterality Blood specimen 02/13/2012 1:30 PM 012 1:52 (specimen) CDT PM CDT Leif Lang MD LAB - BLOOD ORDERABLES Performing Organization Address City/State/ZIP Code Phon e Number [facility] [address] [place], [place] [facility] (ABNORMAL) Basic metabolic panel (02/13/2012 1:30 PM CDT) P athologist Signature Sodium 139 133 - 144 [place] mmol/L [facility] Potassium 3.3 (L) 3.4 - 5.3 [place] mmol/L [facility] Chloride 105 94 - 109 [place] mmol/L [facility] Carbon Dioxide 24 20 - 32 [place] mmol/L [facility] Anion Gap 10 6 - 17 [place] mmol/L [facility] Glucose 100 (H) 60 - 99 [place] mg/dL [facility] Urea Nitrogen 3 (L) 5 - 24 [place] mg/dL [facility] Creatinine 0.56 0.52 - [place] 1.04 mg/dL [facility] GFR Estimate >90 >60 [place] mL/min/[address] [place] [address] LAB GFR Estimate If >90 >60 [place] Black mL/min/1.[address] [place] [address] LAB Calcium 8.1 (L) 8.5 - 10.4 [place] mg/dL [facility] Specimen Anatomical Collection Method Collection Time Receive d Time (Source) Location / / Volume Laterality Blood specimen 02/13/2012 1:30 PM 012 1:52 (specimen) CDT PM CDT Leif Lang MD LAB - BLOOD ORDERABLES Performing Organization Address City/State/ZIP Code Phon e Number M [place] [address] [place], [place] [address] [facility] (ABNORMAL) CBC with platelets differential (02/13/2012 1:30 PM CDT) [facility] gist Method Time Signature WBC 7.7 4.0 - [place] 11.0 [facility] 10e9/L [facility] RBC Count 3.83 3.8 - 5.2 [place] 10e12/L [facility] Hemoglobin 11.9 11.7 - [place] 15.7 g/dL [facility] Hematocrit 34.4 (L) 35.0 - [place] 47.0 % [facility] MCV 90 78 - 100 [facility] LAB MCH 31.1 26.5 - [place] 33.0 pg [facility] MCHC 34.6 31.5 - [place] 36.5 g/dL [facility] RDW 13.0 10.0 - [place] 15.0 % [facility] Platelet Count 146 (L) 150 - 450 [place] 10e9/L [facility] Diff Method Automated [facility] % Neutrophils 70.8 40 - 75 % [facility] % Lymphocytes 21.0 20 - 48 % [facility] % Monocytes 5.8 0 - 12 % [facility] % Eosinophils 1.6 0 - 6 % [facility] % Basophils 0.3 0 - 2 % [facility] % Immature 0.5 (H) 0 - 0.4 % [place] Granulocytes [facility] Absolute 5.5 1.6 - 8.3 [place] Neutrophil 10e9/L [facility] Absolute 1.6 0.8 - 5.3 [place] Lymphocytes 10e9/L [facility] Absolute 0.5 0.0 - 1.3 [place] Monocytes 10e9L [facility] Absolute 0.1 0.0 - 0.7 [place] Eosinophils 10[facility] Absolute 0.0 0.0 - 0.2 [place] Basophils [address] [place] [address] LAB Abs Immature 0.0 0 - 0.03 [place] Granulocytes [address] [place] [address] LAB Specimen Anatomical Collection Method Collection Time Receive d Time (Source) Location / / Volume Laterality Blood specimen 02/13/2012 1:30 PM 012 1:52 (specimen) CDT PM CDT Leif Lang MD LAB - BLOOD ORDERABLES Performing Organization Address City/State/ZIP Code Phon e Number [place] [address] [place] [address] [facility] ECG - HIM ECG Scan (02/13/2012) Narrative This result has an attachment that is no t available. Leif Lang MD ECG ORDERABLES documented in this encounter Visit Diagnoses Diagnosis Chest pain Chest pain, unspecified documented in this encounter Administered Medications Inactive Administered Medications - up to 3 most recent administrations Medication Order MAR Action Action Date Dose Rate Site acetaminophen (TYLENOL) tablet Given 02/13/2012 1:49 PM CDT 1,00 0 mg 1,000 mg 1,000 mg, Oral, ONCE, On Mon02/13/12 at 1345, For 1 dose iopamidol (ISOVUE-370) 76% solution 100 mL Given 02/13/2012 3:27 PM CDT 80 mLs 100 mL, Intravenous, ONCE, On Mon02/13/12 at 1530, For 1 dose documented in this encounter Active and Recently Administered Medications Times are shown in CDT. Scheduled Medication Order 02/11/2012 02/12/2012 02/13/2012 acetaminophen (TYLENOL) tablet 1,000 mg (COMPLETED) 1349 (Given - Provider: Jeny Quiroz, JASON) 1,000 mg, Oral, ONCE, 02/13/12 at 1345, For 1 dose iopamidol (ISOVUE-370) 76% solution 100 mL (COMPLETED) 1527 (Given - Provider: James Palafox - Comment: 20ml discarded) 100 mL, Intravenous, ONCE, 02/13/12 at 1530, For 1 dose documented in this encounter Care Teams Boat Cleaning Supervisor Relationship Specialty Start Date End Date No Ref-Primary, Physician PCP - General 02/13/12 06/05/16 documented as of this encounter
--- OUTSIDE RECORDS SUMMARY | 2022-04-14 15:29 | XMS_ITS | Encounter Summary ---
:1980 Author Organization [facility] Address [address] [place] [address] Care Team Providers Name Role Phone Quan Black MD Primary Care Provider Reason for Visit Reason Comments Medication Request Diflucan Encounter Details Date Type Department Care Team Description 01/27/2003 Telephone [facility] Quan Black M D Medication Request Clinic [address] (Diflucan) [address] [place] [address] [place] [address] Social History Tobacco Use Types Packs/Day Years Used Date Current Every Day Smoker 1 6 Alcohol Use Standard Drinks/Week Comments Yes 1.7 (1 standard drink = 0.6 oz pure alco hol) occasional drinks Sex Assigned at Date Recorded Not on file documented as of this encounter Miscellaneous Notes Telephone Encounter - 01/27/2003 11:59 PM CDT >> HOME OBANDO MonJan 27, 2003 4:18 PM TS, please ok RX; it has already been called in. Home O[facility] RN >> HOME OBANDO MonJan 27, 2003 4:15 PM RX called to [phone]; Home [facility] RN >> QUAN BLACK MonJan 27, 2003 12:59 PM diflucan 150mg po qd x 1, what pharmacy >> [facility] MonJan 27, 2003 8:56 AM >> CALL RECEIVED. Contact: (W) msjayda ok Patient reports white, thick vaginal discharge x 3-4 days; vaginal itchiness; is on Erythomycin; W ould like Diflucan called; has had good results with Diflucan in the past. Home O[facility]o RN documented in this encounter Plan of Treatment Not on filedocumented as of this encounter Visit Diagnoses Not on filedocumented in this encounter Care Teams Dietary Aide Teacher Relationship Specialty Start Date End Date Quan Black MD PCP - General 01/02/03 02/12/[address] [place] [id number] documented as of this encounter
--- OUTSIDE RECORDS SUMMARY | 2022-04-14 15:29 | XMS_ITS | Encounter Summary ---
:1980 Author Organization [place] Address [address] [place] [address]. [place] [address] Care Team Providers Name Role Phone Quan Jimenez MD Primary Care Provider Reason for Visit Reason Comments Sinus Problem Encounter Details Date Type Department Care Team Description 01/06/2004 Office Visit [facility] Wilman Duran MD ACUTE MAXILLARY Michael [address] [facility] SINUSITIS (Primary [address] [facility] [place] [address] [phone] Social History Tobacco Use Types Packs/Day Years Used Date Current Every Day Smoker 1 6 Spencer t: 04/28/2003 Alcohol Use Standard Drinks/Week Comments Yes 1.7 (1 standard drink = 0.6 oz pure alco hol) occasional drinks Sex Assigned at Date Recorded Not on file documented as of this encounter Last Filed Vital Signs Vital Sign Reading Time Taken Comments Blood Pressure 110/72 01/06/2004 1:50 PM CDT Pulse - - Temperature 36.9 ??C (98.5 ??F) 01/06/2004 1:50 PM CDT Respiratory Rate - - Oxygen Saturation - - Inhaled Oxygen Concentration - - Weight 61.2 kg (135 lb) 01/06/2004 1:50 PM CDT Height - - Body Mass Index - - documented in this encounter Progress Notes 01/06/2004 2:00 PM CDT SUBJECTIVE Jeanine Moises Barahona is a 23 year old female who is here today with: CC: Cold Illness began with non-productive cough, fever, nasal congestion and post nasal drainage 6 days ago. 3 days ago, fever resolved. Began feeling sinus congestion and pain with pain on changes in position. Denies: shortness of breath and wheezing. PMH: sinusitis in spring in past from allergic rhinitis. Has not used other meds for allergic rhinitis. No longer smokes. REVIEW OF SYSTEMS GENERAL: poor appetite, sense of taste returning SKIN: no rash, hives, petechiae, other lesions. EYE: no pain, discharge, redness, itching. ENT: as above RESP: as above CARDIOVASC: no tachycardia, palpitations, syncope. GI: no nausea, vomiting, diarrhea, constipation, abdominal pain. MUSCULOSKELETAL: no injury or joint pain. Review of patient's past medical history indicates: ACNE NEC 1999 Comment: dr iglesias STOMACH ULCER NOS 1990 GENITAL HERPES NOS ATYP SQ CELL CHNG UNDET SIG FAV DYS , Comment: paps nl since OVARIAN CYST NEC/NOS 97, 99 ANIMAL BITE NEC 92 Comment: hosp x 1 week after cat bite Current prescriptions: AMOXICILLIN 500 MG OR CAPS TWO CAPS TWICE DAILY FOR UP TO 2 WEEKS FLONASE INHA 50 MCG/DOSE NA 2 SPRAYS IN EACH NOSTRIL QD (Once per day) ERYTHROMYCIN ETHYLSUCCINATE 400 MG OR TABS 1 TABLET AM/ 2 TAB PM Review of the patient's allergies finds: Doxycycline rash OBJECTIVE BP 110/72 Temp (Src) 98.5 (Oral) Wt 135 lbs (61.2kg) GENERAL APPEARANCE: healthy, alert and no distress EYES: no discharge, erythema. Normal pupils and EOMs. RIGHT EAR: normal: no effusions, no erythema, normal landmarks LEFT EAR: normal: no effusions, no erythema, normal landmarks NOSE: normal SINUSES: not tender, but does have pain on change in position. OROPHARYNX: normal NECK: no adenopathy, no asymmetry, masses, or scars and thyroid normal to palpation RESP: lungs clear to auscultation - no rales, rhonchi or wheezes, retractions. CV: regular rate and rhythm, normal S1 S2, no S3 or S4 and no murmur, click or rub. SKIN: no rashes or lesions. Well perfused and normal turgor. LYMPHATICS: No axillary, cervical, inguinal, or supraclavicular nodes DIAGNOSTICS: None ASSESSMENT/PLAN 461.0 ACUTE MAXILLARY SINUSITIS (primary encounter diagnosis) Note: and frontal. Acute onset. Plan: AMOXICILLIN 500 MG OR CAPS, FLONASE INHA 50 MCG/DOSE NA Amoxicillin 1 gm BID for up to 2 weeks. Flonase 1-2 sprays to each nostril QD. Would be helpful to treat allergic rhinitis symptoms in spring to avoid this problem in the future. documented in this encounter Nursing Notes 01/06/2004 2:00 PM CDT >> THERESA GONZALEZ 01/06/04 1:51 pm nasal congestion for 6 days, frontal headaches since Monday. Darker nasal drainage. Had a sore throat been better the last 2 days. Theresa Gonzalez RN documented in this encounter Plan of Treatment Not on filedocumented as of this encounter Visit Diagnoses Diagnosis Acute maxillary sinusitis - Primary documented in this encounter Care Teams Cinnamon Grinder Relationship Specialty Start Date End Date Quan Jimenez MD PCP - General 01/02/03 02/12/12 [address] [place] [address] documented as of this encounter
--- OUTSIDE RECORDS SUMMARY | 2022-04-14 15:29 | XMS_ITS | Encounter Summary ---
:1980 Author Organization [facility] Address [address] [place] [address] Care Team Providers Name Role Phone Quan Jimenez MD Primary Care Provider Encounter Details Date Type Department Care Team Description 01/02/2003 Abstract [facility] [place] Deborah Zuniga [address] [place] [address] [place] [phone] Social History Tobacco Use Types Packs/Day Years [...] Name Priority Date/Time Associated Diagnosis Comme nts ABSTRACT PAP (HIM EXTERNAL RESULT) Routine 05/29/2001 documented in this encounter Results ABSTRACT PAP-NO CHARGE (05/29/2001) Deborah Zuniga LAB - HIM EXTERNAL RESULT documented in this encounter Visit Diagnoses Not on filedocumented in this encounter Care Teams Golf Ball Marker Relationship Specialty Start Date End Date Quan Jimenez MD PCP - General 01/02/03 02/12/12 [address] [place], [place] [phone] documented as of this encounter
--- OUTSIDE RECORDS SUMMARY | 2022-04-14 15:29 | XMS_ITS | Encounter Summary ---
:1980 Author Organization [facility] Address [address] [place] [address] Care Team Providers Name Role Phone Quan Jimenez MD Primary Care Provider Reason for Visit Reason Comments Sinus Problem Encounter Details Date Type Department Care Team Description 01/02/2003 Telephone [facility] Quan Jimenez MD Sinus Problem [address] [address] [place] [address] [phone] Social History Tobacco Use Types Packs/Day Years Used Date Current Every Day Smoker 1 6 Alcohol Use Standard Drinks/Week Comments Yes 1.7 (1 standard drink = 0.6 oz pure alco hol) occasional drinks Sex Assigned at Date Recorded Not on file documented as of this encounter Miscellaneous Notes Telephone Encounter - 01/02/2003 11:59 PM CDT >> HOME OBANDO [facility] January 02, 2003 11:33 AM >> CALL RECEIVED. Contact: Patient reports cold sx x 7days; sx resolved; today, nasal teofilo with green nasal discharge; cough; headache, frontal; eyes hurt; hx of sinus infection; is on Erythromycin for acne; getting on 01/04/03; appt. with TS 2:15 to eval sx. Home Obando RN >> HOME OBANDO Tre[facility] January 02, 2003 11:27 AM Staff Message copied by HOME OBANDO on 01/02/2003 at 11:27 AM ------ Message from: SLAVA GILES Created: 01/02/2003 at 11:16 AM Regarding: ts/triage mess/kd pls rtn call to pt regard cold [phone] documented in this encounter Plan of Treatment Not on filedocumented as of this encounter Visit Diagnoses Not on filedocumented in this encounter Care Teams Flag Football Coach Relationship Specialty Start Date End Date Quan Jimenez MD PCP - General 01/02/03 02/12/[address] [place] [address] documented as of this encounter
--- OUTSIDE RECORDS SUMMARY | 2022-04-14 15:29 | XMS_ITS | Encounter Summary ---
:1980 Author Organization [place] Address [address] [place] [address] Care Team Providers Name Role Phone Quan Jimenez MD Primary Care Provider Reason for Visit Reason Comments Sinus Problem pressure,pain (facial) , eva al congestion for 10 days Encounter Details Date Type Department Care Team Description 01/02/2003 Office Visit [facility] Quan Jimenez M D NASAL & SINUS DIS N[facility] [address] (Primary Dx) [address] [place] [address] [place], [place] [phone] (Wo rk) [address] [phone] Social History Tobacco Use Types Packs/Day Years Used Date Current Every Day Smoker 1 6 Alcohol Use Standard Drinks/Week Comments Yes 1.7 (1 standard drink = 0.6 oz pure alco hol) occasional drinks Sex Assigned at Date Recorded Not on file documented as of this encounter Last Filed Vital Signs Vital Sign Reading Time Taken Comments Blood Pressure 112/60 01/02/2003 2:15 PM CDT Pulse - - Temperature 36.6 ??C (97.9 ??F) 01/02/2003 2:15 PM CDT Respiratory Rate - - Oxygen Saturation - - Inhaled Oxygen Concentration - - Weight 59.9 kg (132 lb) 01/02/2003 2:15 PM CDT Height - - Body Mass Index - - documented in this encounter Progress Notes 01/02/2003 2:15 PM CDT SUBJECTIVE: Chief Complaint: sinus pressure Onset: 2 weeks Fever: YES - initially Chills: NO Sw eats: NO Headache: YES Sinus Symptoms: frontal pain/pressure bilateral Post Nasal Drip: YES - gr/ yel Conjunctivitis: NO Ear Pain: YES: bev popping Rhinorrhea: YES - yel/gr Congestion: YES Sore T hroat: YES Strep/Sick Exposure: NO Cough: YES Wheeze: NO Other Symptoms: Smoker: Yes Decrease d Appetite: Yes Nausea and Vomiting: No Diarrhea: No Dysuria/Frequency: No Fussy/Achy: Yes Patie nt Active Problem List: GENITAL HERPES NOS[054.10] ATYP SQ CELL CHNG UNDET SIG FAV DYS[795.02] ACNE NEC[706.1] Current prescriptions: ERYTHROMYCIN ETHYLSUCCINATE 400 MG OR TABS 1 tab po bid Review of patient's allergies indicates: Doxycycline rash OBJECTIVE: GENERAL: no apparent di stress EYES: Conjunctiva are not injected without discharge. EARS: Left TM is normal: no effusions, no erythema, and normal landmarks. Right TM is bulging and erythematous. NOSE: Nasal mucosa is kay l. THROAT: 1+. NECK: supple with no adenopathy:no fever and shotty nodes CARDIAC:NORMAL - regular rat e and rhythm without murmur. RESP: Normal - CTA without rales, rhonchi, or wheezing. SKIN: normal A SSESSMENT: 478.1 NASAL & SINUS DIS NEC (primary encounter diagnosis) PLAN: Symptomatic cares and fever control (if indicated) discussed. Discussed treatment/modality options, including risk and bene fits, she desires new medication(s) and OTC meds. See [place] orders for further details. Follow u p as needed documented in this encounter Nursing Notes 01/02/2003 2:15 PM CDT >> JEWEL MCCULLOUGH 01/02/2003 2:22 pm BP cuff size: regular B. 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
--- OUTSIDE RECORDS SUMMARY | 2022-04-14 15:29 | XMS_ITS | Encounter Summary ---
:1980 Author Organization [facility] Address [address] [place] [address] Care Team Providers Name Role Phone Qaun Jimenez MD Primary Care Provider Reason for Visit Reason Comments Physical With pap Encounter Details Date Type Department Care Team Description 12/23/2003 Office Visit [facility] Mel Kathleen GYNE COLOGIC EXAMINATION (Primary Dx); [facility] [place] CARROT HARVESTER CNM ACNE NEC [address] [place] [place] [facility] [phone] [place] [address] [place], [place] [phone] (Wo rk) Social History Tobacco Use Types Packs/Day Years Used Date Current Every Day Smoker 1 6 Spencer t: 04/28/2003 Alcohol Use Standard Drinks/Week Comments Yes 1.7 (1 standard drink = 0.6 oz pure alco hol) occasional drinks Sex Assigned at Date Recorded Not on file documented as of this encounter Last Filed Vital Signs Vital Sign Reading Time Taken Comments Blood Pressure 118/70 12/23/2003 9:20 AM CDT Pulse 76 12/23/2003 9:20 AM CDT Temperature - - Respiratory Rate - - Oxygen Saturation - - Inhaled Oxygen Concentration - - Weight 61.7 kg (136 lb) 12/23/2003 9:20 AM CDT Height - - Body Mass Index - - documented in this encounter Progress Notes 12/23/2003 9:15 AM CDT SUBJECTIVE: CC: Ramon Gracia is a 23 year old female who presents for annual exam HPI: reports no problems, uses NFP and condoms for control. No need for other control today. Discussed maternal family history of depression/suicide (MGM and Mother both committed suicide at young ages, both with Chemical Dependency issues). 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 Current prescriptions: ERYTHROMYCIN ETHYLSUCCINATE 400 MG OR TABS 1 TABLET AM/ 2 TAB PM Review of the patient's allergies finds: Doxycycline rash Social History Marital Status: Spouse Name: fabian Years of Education: Number of children: Social History Main Topics Tobacco Use: Yes Packs/Day: 1 Years: 6 Last Attempt to quit: 04/28/2003 Alcohol Use: Yes 1 oz/week Comment: occasional drinks Drug Use: No Sexually Active: Yes Partners with: Male Control/Protection: Diaphragm Other Topics Concern CAFFEINE Yes Comment: 60 oz EXERCISE Yes Comment: 3/wk SEAT BELT Yes Social History Narrative Dairy/d 3 servings/d. Caffeine 1 servings/d Exercise 5-6 x week Sunscreen used - Yes Seatbelts used - Yes Working smoke/CO2 detectors in the home - Yes Guns stored in the home - Yes Self Breast Exams - No Eye Exam up to date - Yes Dental Exam up to date - Yes Pap Smear up to date - Yes Mammogram up to date - NOT APPLICABLE Dexa Scan up to date - NOT APPLICABLE Flex Sig / Colonoscopy up to date - NOT APPLICABLE Immunizations up to date - Yes Abuse: Current or Past (Physical, Sexual or Emotional)- NO Review of patient's family history indicates: Depression Mother Comment: 49 suicide, alcoholic Heart Father Comment: cad, htn Hypertension Father Depression Maternal Grandmother Comment: young suicide, prescription drugs, drug seeker. Respiratory Maternal Grandfather Comment: copd Colon [place] Paternal Grandfather Comment: late 80's Lipids Father Obstetric History The patient has never been . Menstrual History Regular menses? yes Menses every 28 days. Length of menses: 6 days Menstrual description: regular HEALTH MAINTENANCE: REVIEW OF OUTSIDE RECORDS: NO ROS: C: NEGATIVE for fever, chills, change in weight I: NEGATIVE for worrisome rashes, moles or lesions E/M: NEGATIVE for ear, mouth and throat problems R: NEGATIVE for significant cough or SOB CV: NEGATIVE for chest pain, palpitations or peripheral edema GI: NEGATIVE for nausea, abdominal pain, heartburn, or change in bowel habits : NEGATIVE for frequency, dysuria, or hematuria EXAM: BP 118/70 Pulse 76 Wt 136 lbs (61.7kg) LMP 11/26/2003 General - pleasant female in no acute distress. Skin - no suspicious lesions or rashes Neck - supple without lymphadenopathy or thyromegaly. Lungs - clear to auscultation bilaterally. Heart - regular rate and rhythm without murmur. Breast - no nodularity, asymmetry or nipple discharge bilaterally. Abdomen - soft, nontender, not distended, no hepatosplenomegaly. Musculoskeletal - no gross deformities. Neurological - normal strength, sensation, and mental status. Pelvic - EG: normal adult female, BUS: within normal limits, Vagina: well rugated, no discharge, Cervix: no lesions or CMT, Uterus: firm, mobile, retroverted, normal sized and not tender, Adnexa: no masses or tenderness. Anus/Perineum: normal, no lesions. Rectovaginal - deferred. ASSESSMENT/PLAN V72.3 GYNECOLOGIC EXAMINATION (primary encounter diagnosis) Plan: Pap smear Additional teaching done at this visits regarding self breast exam, control, preconception and smoking cessation Discussed with patient family history of depression, discussed importance throughout her life of knowing signs and symptoms of depression especially if ever and perimenopausal/menopausally. Pt. agreed Pt. informed of CNM services stopping at [facility], packet given regarding clinics that are available for CNM services. I have discussed with patient the risks, benefits, medications, treatment options and modalities. I have instructed the patient to call or schedule a follow-up appointment if any problems or failure to improve. documented in this encounter Nursing Notes 12/23/2003 9:15 AM CDT >> ANDERSON OBANDO 12/23/03 9:22 am BP cuff size: regular Patient in for CPE with pap. Last pap was about 2000- had abnormal pap in 1995- 1999, but last recentpap was normal. No other questions or concerns. Anderson Smith MA documented in this encounter Plan of Treatment Not on filedocumented as of this encounter Procedures Procedure Name Priority Date/Time Associated Diagnosis Comme nts HCL PAP THIN LAYER Routine 12/23/2003 12:00 AM Gynecologic Re sults for this SCREEN CDT Examination procedure are i n the results section. documented in this encounter Results A THIN LAYER PAP SCREEN (12/23/2003 12:00 AM CDT) Component Value Ref Test Analysis Performed At [facility] Method Time Signature Copath Report Patient Name: RAMON GRACIA MR#: [id number] Specimen #: [id number] Collected: 12/23/03 Received: 12/24/03 Reported: 12/26/03 09:05 Ordering Phy(s): MEL KATHLEEN SPECIMEN/STAIN PROCESS: Pap thin layer prep screening ? Pap-Cyto x 1, Reflex HPV x 1 SOURCE: Cervical, endocervical ---- Pap thin layer prep screening SPECIMEN ADEQUACY: Satisfactory for evaluation. -Transitional zone component present. CYTOLOGIC INTERPRETATION: Negative for Intraepithelial Lesion or Malignancy ? Organism(s): -Shift in isaac suggestive of bacterial vaginosis. Electronically signed out by: JOSE Borjas (ASCP) Processed and screened at [facility] CLINICAL HISTORY: LMP: 11/26/03 Previous normal pap, Specimen (Source) Anatomical Collection Method Collection Time Re ceived Time Location / / Volume Laterality 12/23/2003 12/24/2003 10:1 2 AM CDT Mel Kathleen APRN CNM LABORATORY Performing Organization Address City/State/ZIP Code Phon e Number COPATH documented in this encounter Visit Diagnoses Diagnosis Gynecological examination - Primary ACNE NEC Other acne documented in this encounter Care Teams Heat Treat Worker Relationship Specialty Start Date End Date Quan Jimenez MD PCP - General 01/02/03 02/12/[address] [place] [phone] documented as of this encounter
--- OUTSIDE RECORDS SUMMARY | 2022-04-14 15:29 | XMS_ITS | Encounter Summary ---
:1980 Author Organization [facility] Address [address] [place] [address] Care Team Providers Name Role Phone Quan Jimenez MD Primary Care Provider Encounter Details Date Type Department Care Team Description 12/08/2003 Abstract [facility] Adwoa Nice [address] [place], [place] [phone] Social History Tobacco Use Types Packs/Day Years [...] on filedocumented in this encounter Care Teams Wide Piece Goods Inspector Relationship Specialty Start Date End Date Quan Jimenez MD PCP - General 01/02/03 02/12/[address] [place] [phone] documented as of this encounter
[2022-04-14 15:35] VITALS: BP 131/81; PULSE 101; RESP 16; O2SAT 98
[2022-04-14 15:35] LABS: Slide Review Reflex No
[2022-04-14 15:42] LABS: Chloride* 105 mmol/L (96-114); Potassium* 3.8 mmol/L (3.6-5.1); Sodium* 138 mmol/L (135-149)
[2022-04-14 15:45] LABS: Blood Urea Nitrogen* 9 mg/dL (5-24); Carbon Dioxide* 23 mmol/L (20-32); Creatinine* 0.7 mg/dL (0.5-1.5); Est. Creatinine Clearance* 96.01; Estimated Glomerular Filt Rate 109 ml/min; Glucose* 154 mg/dL (60-115)
[2022-04-14 15:46] LABS: Calcium* 8.2 mg/dL (8.4-10.6); Magnesium* 1.8 mg/dL (1.5-2.6)
== END 2022-04-14 15:55 | disposition home or self-care (01) ==
PROVIDERS: Emergency Provider Family Medicine; PCP Family Medicine
DX: I47.1 Supraventricular tachycardia (principal)
CPT/HCPCS: 36415; 71045; 80048; 83735; 84443; 84484; 85025; 93005; 99283; 99285

== ENCOUNTER 2022-05-14 13:25 | Emergency (ER) | payer OTHER, SELFPAY ==
[2022-05-14 13:31] VITALS: BP 149/82; PULSE 93; RESP 18; TEMP 36.6; O2SAT 98
--- NOTE | 2022-05-14 14:31 | ED.EYEPROB ---
HPI - Eye Problem General Date Seen: 05/14/22 Chief complaint: Eye Problems Stated complaint: Something in Eye Time Seen by Provider: 05/14/22 13:28 Source: patient Mode of arrival: ambulatory Limitations: no limitations History of Present Illness HPI Narrative: Patient is a very nice 42-year-old female who presents here after she was dropping some sand into her garbage can, something flew up and hit her in the right eye, this occurred approximately an hour ago. She notes that she has a foreign body sensation in that I would just wants to get her eyes checked to make sure she does not have anything in there. She has no photophobia there is no discharge in her vision is been really good. She is not wear contacts. chief complaint: eye pain, eye injury and foreign body Onset (ago): hour(s) Onset description: sudden Duration: constant Location: right eye Eye Symptoms: burning and foreign body sensation Place: home Mechanism: other Severity: moderate If Pain, Quality: burning Associated symptoms: none Treatments Prior to Arrival: none Related Data Patient tetanus UTD: Yes Home Medications Medication Instructions Recorded Confirmed loratadine 10 mg tablet (Allergy 10 mg PO QDAY 03/04/22 03/04/22 Relief (loratadine)) Previous Rx's Medication Instructions Recorded metoprolol succinate 25 mg 25 mg PO DAILY #90 tabs 04/14/22 tablet,extended release 24 hr Allergies Allergy/AdvReac Type Severity Reaction Status Date / Time tetracycline Allergy Mild Rash Verified 04/14/22 15:02 Review of Systems Status of ROS: Reports: 6 or more systems reviewed and unremarkable except as noted in History and below [facility] Medical History History of tachycardia Pre-procedural laboratory examination Social History Smoking Status: Former smoker What tobacco products do you use: cigarettes Smoking quit date/years: <= 15 years ago Do you use any of these nicotine containing products: None Second hand tobacco smoke exposure: Yes How often do you have a drink containing alcohol: never How often do you have six or more drinks on one occasion: Never AUDIT-C Alcohol total score: 0 Non-prescribed substance use: denies use service: No Exam Narrative: Exam Narrative: Examination of her right eye shows little bit a redness there is no swelling at all. No periorbital issues. She her eyes track normally, there is no nystagmus, extraocular muscles are normal. Pupils are equal round reactive to light. Upper lid is everted and shows no evidence of foreign body lower lid is checked also normal, Alcaine is use 2 drops in her right eye for anesthesia and diagnostic reasons, this took away her foreign body sensation. Slit lamp is use, in viewed in her right eye, there is a corneal abrasion noted at the 9:30 position noted, no evidence of foreign body is noted, no ulcers noted. Const: Vital Signs, click to edit/add: Vital Signs - 24 hr 05/14/22 13:31 Temperature 97.9 F Pulse Rate [Right Pulse Oximeter] 93 Respiratory Rate 18 Blood Pressure [Ri ght Upper Arm] 149/82 H Pulse Oximetry 98 Oxygen Delivery Me thod Room Air Documenting provider has reviewed patient's vital signs: yes Course Vital Signs Vital signs: Initial Vital Signs Temperature 97.9 F 05/14/22 13:31 Temperature Source Temporal Artery Scan 05/14/22 13:31 Pulse Rate 93 05/14/22 13:31 Respiratory Rate 18 05/14/22 13:31 Blood Pressure 149/82 H 05/14/22 13:31 Blood Pressure Mean 104 05/14/22 13:31 Blood Pressure Position Sitting 05/14/22 13:31 Pulse Oximetry 98 05/14/22 13:31 Oxygen Delivery Method 05/14/22 13:31 Vital Signs Temperature 97.9 F 05/14/22 13:31 Pulse Rate 93 05/14/22 13:31 Respiratory Rate 18 05/14/22 13:31 Blood Pressure 149/82 H 05/14/22 13:31 Pulse Oximetry 98 05/14/22 13:31 Oxygen Delivery Method 05/14/22 13:31 Temperature 97.9 F 05/14/22 13:31 Pulse Rate 93 05/14/22 13:31 Respiratory Rate 18 05/14/22 13:31 Blood Pressure 149/82 H 05/14/22 13:31 Pulse Oximetry 98 05/14/22 13:31 Oxygen Delivery Method 05/14/22 13:31 MDM - Eye Problem Differential Diagnosis Differential diagnosis: Likely corneal abrasion, conjunctivitis, acute iritis, hyphema, periorbital cellulitis, subconjunctival hemorrhage, glaucoma and corneal ulcer Medical Records Attestation: I reviewed the patient's medical records. Lab Data Attestation: I reviewed the patient's lab results. Discharge Plan Discharge Clinical Impression: Corneal abrasion, right Qualifiers: Encounter type: initial encounter Qualified Code(s): S05.01XA - Injury of conjunctiva and corneal abrasion without foreign body, right eye, initial encounter Patient Disposition: Home, Self-Care Condition: Stable Instructions: Corneal Abrasion (ED), Photophobia (ED) Additional Instructions: Home, rest, ibuprofen 800 mg 3 times a day for the next 2 days. Use antibiotic drops for the next 5 days, to prevent infection. He should be a lot better by tomorrow if by the 3rd day your not, then head over to the [facility] and get checked. Sunglasses any time here outside for the next couple days will really help. Instymeds rx for tobramycin Activity Level: No Restrictions Prescriptions: No Action loratadine [Allergy Relief (loratadine)] 10 mg tablet 10 mg PO QDAY metoprolol succinate 25 mg tablet extended release 24 hr 25 mg PO DAILY Qty: 90 1RF Hold Instructions: cancelled Follow Up/Referrals: Alysia Longoria MD [Primary Care Provider] - Stand Alone Forms: [facility] Info Instructions Procedures Eye Procedure Right: Location: cornea Topical anesthetic used: tetracaine Evidence of corneal penetration: No Technique: cotton tip swab Procedure performed under: slit-lamp Post-procedure medication: topical anesthetic Patient tolerated procedure: no complications
--- OUTSIDE RECORDS SUMMARY | 2022-05-14 14:37 | XMS_ITS | Encounter Summary ---
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 informed of CNM services stopping at [facility], packet given regarding clinics that are available [...] Component Value Ref Test Analysis Performed At [facility] Method Time Signature Copath Report Patient Name: RAMON GRACIA MR#: [id number] Specimen #: [id number] Collected: 12/23/03 Received: 12/24/03 Reported: 12/26/03 09:05 [...] JOSE Borjas (ASCP) Processed and screened at [facility] CLINICAL HISTORY: LMP: 11/26/03 Previous normal pap, Specimen (Source) Anatomical Collection Method Collection Time Re ceived Time Location / / Volume Laterality 12/23/2003 12/24/2003 10:1 2 AM CDT Mel Kathleen APRN CNM LABORATORY Performing Organization Address City/State/ZIP Code Phon e Number [place] documented in this encounter Visit Diagnoses Diagnosis Gynecological examination - Primary ACNE NEC Other acne documented in this encounter Care Teams Painting Worker Relationship Specialty Start Date End Date Quan Jimenez MD PCP - General 01/02/03 02/12/[address] [place] [address] documented as of this encounter
--- OUTSIDE RECORDS SUMMARY | 2022-05-14 14:37 | XMS_ITS | Encounter Summary ---
:1980 Author Organization [facility] Address [address] [place] [address] Care Team Providers Name Role Phone No Ref-Primary, Physician Primary Care Provider [phone] Reason for Visit Reason Comments Chest Pain 35 wks preg. Encounter Details Date Type Department Care Team Description 02/13/2012 [facility] Leif Rubi nd, MD Chest pain Emergency Dept [facility] [address] [facility] [address] [place] [address] [place], [place] [id number] (Wo rk) Social History Tobacco Use Types [...] 02/13/2012 3:15 PM CDT Pt transported to [place]. Jeny Quiroz RN - 02/13/2012 1:50 PM CDT Pt states she has not taken any viagra, cialis, revatio, or levitra. Jeny Quiroz RN - 02/13/2012 1:33 PM CDT ABCs intact. Pt states RU chest pain starting around noon. Intermittent pain lasting 5-10 seconds. 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 Denies nausea at present. Jeny Quiroz [...] didnot improve her symptoms. She called her UPHOLSTERY TECH, who referred her to the ER for [...] Department Course EKG: Vent Rate: 105 BPM MA Interval: 122 ms QRS duration: 82 ms QT/QTc: 326/430 ms R Machias: 10 Findings: Sinus tachycardia. Nonspecific ST abnormality. Abnormal EKG. Time read: 1:27 PM Imaging: CT Chest, IV contrast: No pulmonary embolism demonstrated. No thoracic aortic dissection or aneurysm. Reading per Dr. Hernandez, radiology. Final reading pending. Laboratory: CBC: WBC [...] After the patient discussed this with her UPHOLSTERY TECH she consented to the test. There was [...] improved condition with plan for follow-up with UPHOLSTERY TECH in 3 days. Return with increased pain, [...] 1.0 (H) 0.0 - 0.50 [facility] ug/ml [facility] Specimen Anatomical Collection Method Collection Time Receive d Time (Source) Location / / Volume Laterality Blood specimen 02/13/2012 1:30 PM 012 1:52 (specimen) CDT PM CDT Leif Lang MD LAB - BLOOD ORDERABLES Performing Organization Address City/State/ZIP Code Phon e Number M [facility] [address] [place], [place] [facility] (ABNORMAL) Basic metabolic panel (02/13/2012 1:30 PM CDT) P athologist Signature Sodium 139 133 - 144 [place] mmol/L [facility] Potassium 3.3 (L) 3.4 - 5.3 [place] mmol/L [facility] Chloride 105 94 - 109 [place] mmol/L [facility] Carbon Dioxide 24 20 - 32 [place] mmol/L [facility] Anion Gap 10 6 - 17 [place] mmol/L [facility] Glucose 100 (H) 60 - 99 [place] mg/dL [facility] Urea Nitrogen 3 (L) 5 - 24 [place] mg/dL [facility] Creatinine 0.56 0.52 - [place] 1.04 mg/dL [facility] GFR Estimate >90 >60 [place] mL/min/1.[address] [place] [address] LAB GFR Estimate If >90 >60 [place] Black mL/min/1.[address] [place] [address] LAB Calcium 8.1 (L) 8.5 - 10.4 [place] mg/dL [facility] Specimen Anatomical Collection Method Collection Time Receive d Time (Source) Location / / Volume Laterality Blood specimen 02/13/2012 1:30 PM 012 1:52 (specimen) CDT PM CDT Leif Lang MD LAB - BLOOD ORDERABLES Performing Organization Address City/State/ZIP Code Phon e Number M [place] [address] [address] [place], [place] [address] [facility] (ABNORMAL) CBC with platelets differential (02/13/2012 1:30 PM CDT) [facility] gist Method Time Signature WBC 7.7 4.0 - [place] 11.0 [facility] 10e9/L [facility] RBC Count 3.83 3.8 - 5.2 [place] 10e12/L [facility] Hemoglobin 11.9 11.7 - [place] 15.7 g/dL [facility] Hematocrit 34.4 (L) 35.0 - [place] 47.0 % [facility] MCV 90 78 - 100 [facility] MCH 31.1 26.5 - [place] 33.0 pg [facility] MCHC 34.6 31.5 - [place] 36.5 g/dL [facility] RDW 13.0 10.0 - [place] 15.0 % [facility] Platelet Count 146 (L) 150 - 450 [place] 10e9/L [facility] Diff Method Automated [facility] % Neutrophils 70.8 40 - 75 % [facility] % Lymphocytes 21.0 20 - 48 % [facility] % Monocytes 5.8 0 - 12 % [facility] % Eosinophils 1.6 0 - 6 % [facility] % Basophils 0.3 0 - 2 % [facility] % Immature 0.5 (H) 0 - 0.4 % [place] Granulocytes [facility] Absolute 5.5 1.6 - 8.3 [place] Neutrophil 10e9/L [facility] Absolute 1.6 0.8 - 5.3 [place] Lymphocytes 10e9/L [facility] Absolute 0.5 0.0 - 1.3 [place] Monocytes 10e9L [facility] Absolute 0.1 0.0 - 0.7 [place] Eosinophils 10e9[facility] Absolute 0.0 0.0 - 0.2 [place] Basophils [address] [place] [address] LAB Abs Immature 0.0 0 - 0.03 [place] Granulocytes [address] [place] [address] LAB Specimen Anatomical Collection Method Collection Time Receive d Time (Source) Location / / Volume Laterality Blood specimen 02/13/2012 1:30 PM 012 1:52 (specimen) CDT PM CDT Leif Lang MD LAB - BLOOD ORDERABLES Performing Organization Address City/State/ZIP Code Phon e Number [place] [address] [place] [address] [facility] ECG - HIM ECG Scan [...] dose documented in this encounter Care Teams Dethistler Operator Relationship Specialty Start Date End Date No Ref-Primary, Physician PCP - General 02/13/12 06/05/16 documented as of this encounter
--- OUTSIDE RECORDS SUMMARY | 2022-05-14 14:37 | XMS_ITS | Clinical Summary ---
:1980 Author Organization [facility] Address [address] [place] [address] Care Team Providers Name Role Phone Clinic, [facility] Primary Care Provider [phone] Allergies Active Allergy Reactions Severity Noted Date Comments Doxycycline 01/02/2003 rash Medications No known medications Active Problems Problem Noted Date Routine general [facility] 12/23/2003 Genital herpes 01/02/2003 Overview: Problem [...] 61.7 kg (136 lb) 07/14/2004 4:10 PM HR ADMINISTRATIVE ASSISTANT Height - - Body Mass Index - [...] ss Type Group BCBS BCBS OF [place] [id number] 2016-Andrea [phone] [address] [address] Indemnity t 0 [place] [id number] Advance Directives For more information, please contact: [phone] Latest Code Status on File Code Status Date Activated Date Inactivated Comments 12/08/2003 8:46 AM 12/08/2003 8:46 AM Care Teams Cnc Machinist 2Nd Shift Relationship Specialty Start Date End Date Clinic, [facility] PCP - General 06/06/[address] [place] [address]
--- OUTSIDE RECORDS SUMMARY | 2022-05-14 14:37 | XMS_ITS | Encounter Summary ---
:1980 Author Organization [facility] Address [address] [place] [address] Care Team Providers Name Role Phone Quan Jimenez MD Primary Care Provider Encounter Details Date Type Department Care Team Description 01/02/2003 Abstract [facility] [place]un[place] [address] [place] [address] [place], [place] [phone] Social History Tobacco Use Types Packs/Day [...] on filedocumented in this encounter Care Teams Usability Specialist Relationship Specialty Start Date End Date Quan Jimenez MD PCP - General 01/02/03 02/12/12 [address] [place], [place] [phone] documented as of this encounter
--- OUTSIDE RECORDS SUMMARY | 2022-05-14 14:37 | XMS_ITS | Encounter Summary ---
:1980 Author Organization [facility] Address [address] [place] [address] Care Team Providers Name Role Phone Quan Jimenez MD Primary Care Provider Reason for Visit Reason Comments RECHECK Med check Confirmation Of Positive test at h ome Encounter Details Date Type Department Care Team Description 07/14[facility] (Primary Dx); Clinic [address], [address] [address] [place], [place] [phone] (Wo rk) [address] [phone] Social History Tobacco Use Types Packs/Day Years [...] Comments Blood Pressure 122/64 07/14/2004 4:10 PM BEAD BUILDER Pulse - - Temperature 37.2 ??C (99 ??F) 07/14/2004 4:10 PM BEAD BUILDER Respiratory Rate - - Oxygen Saturation - - Inhaled Oxygen Concentration - - Weight 61.7 kg (136 lb) 07/14/2004 4:10 PM BEAD BUILDER Height - - Body Mass Index - - documented in this encounter Progress Notes 07/14/2004 4:00 PM BEAD BUILDER SUBJECTIVE: Jeanine is a 24 year old [...] smoking, get ob care established,start vit. See [facility] orders for further details. Follow up prn. [...] Absence Of Res ults for this URINE BEAD BUILDER Menstruation procedure are i n the results section. documented in this encounter Results (ABNORMAL) HCG, QUAL URINE (07/14/2004 4:13 PM BEAD BUILDER) [facility] Method Time Signature HCG Qual Urine Positive (A) NEG [facility] Specimen Anatomical Collection Method Collection Time Receive d Time (Source) Location / / Volume Laterality 07/14/2004 4:13 PM 4:14 BEAD BUILDER PM BEAD BUILDER Quan Jimenez MD LABORATORY Performing Organization Address City/State/ZIP Code Phon e Number [facility] [address] [place] [address] [facility] documented in this encounter Visit Diagnoses Diagnosis Absence of menstruation - Primary state, incidental documented in this encounter Care Teams Radio Equipment Installer Relationship Specialty Start Date End Date Quan Jimenez MD PCP - General 01/02/03 02/12/[address] [place] [address] documented as of this encounter
--- OUTSIDE RECORDS SUMMARY | 2022-05-14 14:37 | XMS_ITS | Encounter Summary ---
:1980 Author Organization [facility] Address [address] [place] [address] Care Team Providers Name Role Phone Quan Jimenez MD Primary Care Provider Reason for Visit Reason Comments Sinus Problem pressure,pain (facial) , eva al congestion for 10 days Encounter Details Date Type Department Care Team Description 01/02/2003 Office Visit [facility] Quan Jimenez M D NASAL & SINUS DIS NEC Clinic [address] (Primary Dx) [address] [place] [address] [place], [place] [phone] (Wo rk) [address] [phone] Social History Tobacco Use Types Packs/Day Years [...] desires new medication(s) and OTC meds. See [facility] orders for further details. Follow u p as needed documented in this encounter Nursing Notes 01/02/2003 2:15 PM CDT >> JEWEL MCCULLOUGH 01/02/2003 2:22 pm BP cuff size: regular B. [place] OVERNIGHT BABYSITTER documented in this encounter Plan of Treatment Not on filedocumented as of this encounter Visit Diagnoses Diagnosis Nasal/sinus dis NEC - Primary Other diseases of nasal cavity and sinus es documented in this encounter Care Teams Transplant Immunologist Relationship Specialty Start Date End Date Quan Jimenez MD PCP - General 01/02/03 02/12/12 [address] [place] [address] documented as of this encounter
--- OUTSIDE RECORDS SUMMARY | 2022-05-14 14:37 | XMS_ITS | Encounter Summary ---
:1980 Author Organization [facility] Address [address] [place] [address] Care Team Providers Name Role Phone Quan Jimenez MD Primary Care Provider Encounter Details Date Type Department Care Team Description 12/08/2003 Abstract [facility] Adwoa [address] [place], [place] [phone] Social History Tobacco Use [...] on filedocumented in this encounter Care Teams Filament Tester Relationship Specialty Start Date End Date Quan Jimenez MD PCP - General 01/02/03 02/12/[address] [place] [id number] documented as of this encounter
--- OUTSIDE RECORDS SUMMARY | 2022-05-14 14:37 | XMS_ITS | Clinical Summary ---
:1980 Author Organization [employer] [place] [address] Care Team Providers Name Role Phone Alysia Longoria MD Primary Care Provider Allergies Active Allergy Reactions Severity Noted Date Comments Doxycycline Rash 01/02/2003 rash Medications Medication Sig Dispensed Refills Start Date End Date Status fluticasone (50 mcg Inhale 1 [place] into 1 Bottle 0 12/07/2015 Active per actuation) nasal both nostrils once solution (FLONASE) daily. loratadine (CLARITIN) Take 1 tablet by 0 10/22/2018 Active 10 mg tablet mouth once daily. albuterol HFA INHALE 2 0 09/14/2021 Activ e (PRO-AIR; VENTOLIN; INHALATIONS BY PROVENTIL) 90 MOUTH EVERY 4 TO 6 mcg/actuation inhaler HOURS NEEDED azelaic acid APPLY EXTERNALLY TO 0 05/05/2021 Active (FINACEA) 15 % FACE DAILY topical gel azelastine 137 INSTILL 1 SPRAY IN 0 09/14/2021 Active mcg/actuation EACH NOSTRIL TWICE (ASTELIN) nasal spray DAILY NEEDED. USE WITH FLONASE Sulfacetamide APPLY TOPICALLY TO 0 09/16/2021 Active Sodium-Sulfur 10-5 % ACNE LESIONS DAILY (w/w) topical cream metoprolol succinate Take 25 mg by mouth 0 2 Active (TOPROL XL) 25 mg once daily. Sustained-Release tablet Active Problems Problem Noted Date SVT (supraventricular tachycardia) 04/20/2022 Adjustment disorder with mixed anxiety and depressed m ood 07/07/2014 Family history of colonic polyps 07/29/2013 Unspecified hypothyroidism 01/06/2011 Family history of ischemic heart disease 06/19/2006 Dyspareunia 06/19/2006 Routine general medical examination at [facility] acility 12/23/2003 Genital herpes 01/02/2003 Overview: Overview: Problem list name updated by automated p rocess. Provider to review Other acne 01/02/2003 Pap smear of cervix with ASCUS, cannot exclude HGSIL 0 01/02/2003 Overview: 1996 ASCUS favor dysplasia 1997 ASCUS favor dysplasia 01/02/03 ASC-H 07/2011 NIL/HPV negative 04/2018 NIL/HPV negative 08/06/21 LSIL/HPV+, 16+, 18 negative Plan:Colposcopy Resolved Problems Problem Noted Date Resolved Date Papanicolaou smear of cervix with atypical squamous cells 08/27/2021 cannot exclude high grade squamous intraepithelial lesion (ASC-H) Encounters Date Type Specialty Care Team Description 04/26/2022 Telephone Alysia Longoria Appointment Request MD Breanna (Triaged) 04/26/2022 Travel 04/26/2022 Nurse Triage Alysia Longoria Dizziness MD Breanna 04/20/2022 Office Visit Ayleen Yee CV Electr ophysiology Est [employer] (Discuss ablati on, Has been having mor e SVT episodes than n ormal) 04/20/2022 Travel 04/18/2022 Telephone Oskar Sherman Concerns MD 04/14/2022 Telephone Oskar hSerman Concerns (ED for SVT MD today) 04/05/2022 Lab Requisition Heidy De Dios MD 03/21/2022 Orders Only Lab, [facility] 03/21/2022 Phone Office Visit Monica Penaloza Covid-19 Positive Result [facility] 03/21/2022 Travel 03/21/2022 Telephone Monica Penaloza Lab (COVID-19/) [facility] 03/07/2022 Lab Requisition Heidy De Dios MD 03/04/2022 Lab Requisition Heidy De Dios MD 02/25/2022 Office Visit Gretchen Quintana Elbow Injury ( left elbow- [facility] Campbell diagnosed with tennis elbow in ) 02/25/2022 Travel from Last 3 Months Immunizations Name Administration Dates Next Due AMB Influenza, IIV4 PF (=>6 mos 05/24/2016 Flulaval,Fluzone Fluarix)(Flu Clinic Only) COVID-19 vaccine (M[employer] 03/04/2021, 12/12/2020 30mcg/0.3mL) PF, MDV Hepatitis B (Adult) 07/29/2013, 12/20/2012, 10/30/2012 Influenza A (H1N1), Inactivated 08/14/2009 Influenza, IIV3 (Age 6-35 mos) 05/24/2010 Influenza, IIV3 (Age >=3 years) 05/07/2013, 04/30/2009 Influenza, IIV4 08/06/2021, 05/20/2020, 05/15/2019, 05/25/2018, 06/12/2015, 06/02/2014 Influenza, IIV4 (=>6mos) MDV 05/08/2017 Td, Preservative Free (age >= 7 08/22/2019 Years) Tdap 03/27/2000 Family History Medical History Relation Name Comments Other Father Hypertension Cancer-breast Maternal Aunt x2 Alcohol/Drug Mother Alchoholism Other Mother from pulmon gene embolism in hospital age 45. Psychiatric illness Mother depression Cancer Paternal Grandfather Cancer-colon Paternal Grandfather Other Sister 2 polycystic ovary /protein c deficiency Cancer-ovarian No Family History Diabetes No Family History Heart attack No Family History Relation Name Status Comments Father Alive Maternal Aunt Maternal Grandfather Alive Maternal Grandmother (Age 50) Mother (Age 45) Paternal Grandfather Paternal Grandmother Sister 1 Alive Sister 2 Son Alive Social History Tobacco Use Types Packs/Day Years Used Date Former Smoker 1.5 15 Quit: 04/17/20 07 Smokeless Tobacco: Never Used Tobacco Cessation: Counseling Given: Yes Alcohol Use Standard Drinks/Week Comments Not Currently 0 (1 standard drink = 0.6 oz pure alcoho l) Alcohol Habits Answer Date Recorded How often do you have a drink containing alcohol? 2-4 times a month 04/27/2020 How many drinks containing alcohol do you have on a 1 or 2 10/29/2018 typical day when you are drinking? How often do you have six or more drinks on one Never 10/29/2018 occasion? Comment: Not asked Sex Assigned at Date Recorded Not on file COVID-19 Exposure Response Date Recorded In the last 10 days, have you been in contact with No / Unsu re 04/26/2022 11:47 AM CDT someone who was confirmed or suspected to have Coronavirus/COVID-19? Obstetrics History Para Term AB IAB SAB Ectopic Multiple Living Live Births 5 3 3 3 Date Outcome GA Total Labor/2nd/3rd Weight Sex Delivery Anes PTL Jazmin A 1 A5 Name Clin Labor Term Term Term Last Filed Vital Signs Vital Sign Reading Time Taken Comments Blood Pressure 132/68 04/20/2022 1:48 PM CDT Pulse 72 04/20/2022 1:48 PM CDT Temperature 36.8 ??C (98.2 ??F) 12/09/2021 8:51 AM CDT Respiratory Rate 16 10/13/2020 5:30 PM MAGNETIC LOCATER Oxygen Saturation 100% 04/20/2022 1:48 PM CDT Inhaled Oxygen Concentration - - Weight 81.6 kg (180 lb) 04/20/2022 1:48 PM CDT Height 167 cm (5' 5.75) 04/20/2022 1:48 PM CDT Body Mass Index 29.27 04/20/2022 1:48 PM CDT Plan of Treatment Health Maintenance Due Date Last Done Comments Influenza for age 9-49 04/28/2022 08/06/2021, 05/20/2020, 05/15/2019, Additional history exists Depression screening for age 12+ 08/06/2022 08/06/2021, , 02/13/2020, Additional history exists Pap test for age 21-65 10/05/2022 04/04/2022, 09/20/2021 (Completed outside of [facility]), 08/06/2021, Additional history exists BMI (ht and wt on same day) for 04/20/2023 04/20/2022, 11/26, age 18+ 08/06/2021, Additional history exists Tetanus booster 08/22/2029 08/22/2019, 03/28/2009, 03/27/2000 Tdap Completed 03/28/2009 (Completed outside of [facility]), 03/27/2000 Hepatitis C screening for age Completed 01/27/2015 18-79 COVID-19 vaccine series Completed 09/14/2021, 03/04/2021, 12/12/2020 Procedures Procedure Name Priority Date/Time Associated Comments Diagnosis LAB TRACKING EVENT Routine 04/04/2022 2:45 PM CDT [employer] THIN PREP PAP Routine 04/04/2022 2:45 PM Resu lts for this DIAGNOSTIC IMAGED CDT procedure are in the results section. CREATININE,ISTAT Routine 03/21/2022 3:20 PM COVID-19 Resul ts for this CDT procedure are i n the results section. LAB TRACKING EVENT Routine 03/04/2022 11:45 AM CDT [employer]PER[employer] THIN PREP PAP Routine 03/04/2022 11:45 Result s for this SCREEN IMAGED - AM CDT procedure ar e in Unsuccessful Attempt the res ults section. LAB TRACKING EVENT Routine 03/03/2022 11:45 AM CDT PATH TISSUE EXAM Routine 03/03/2022 11:45 Results for this AM CDT procedure are i n the results section. from Last 3 Months Results LAB TRACKING EVENT (04/04/2022 2:45 PM CDT)Only the most recent of3 results within the time period is included. Specimen Anatomical Collection Method Collection Time Receive d Time (Source) Location / / Volume Laterality Other (Other) Client Collect / 04/04/2022 2:45 PM 0804/2022 4:50 Unknown CDT PM CDT Heidy De Dios MD LAB BILL ONLY Performing Organization Address City/State/ZIP Code Phon e Number [employer] [address] [place] [address] LABORATORY-CENTRAL 1999 LABORATORY [employer]BESTOS PIPE SUPERVISOR THIN PREP PAP DIAGNOSTIC IMAGED (04/04/2022 2:45 PM CDT) Component Value Ref Test Analysis Performed At [facility] gist Range Method Time Signature Case Report Gynecologic Cytology Report ? Case: [id number] ? 04/25/2022 ETHAN Authorizing Provider: ??Heidy De Dios MD ?? Collected: ? 04/04/2022 1445 ? 10:35 AM HEALTH Ordering Location: ? [facility] CENTRAL LAB ?Received: ?04/06/2022 1601 ? CDT [place] [facility]-C First Screen: ? Baccam, Minie ? ENTRAL Rescreen: ?Lia Jules ? LABORATORY Specimen: ?[employer] P[employer] SUPERVISOR ThinPrep Vial Diagnostic, Cervical ? INTERPRETATION NEGATIVE FOR (none) 04/25/2022 [facility] E lectronically /RESULT INTRAEPITHELIAL 10:35 AM HEALTH sign ed by HEIDI Jules OR CDT LABORATORY-C Lia on MALIGNANCY (NIL) ENTRAL 03/29 at LABORATORY 10:35 AM ORGANISM(S) Shift in isaac 04/25/2022 [facility] suggestive of 10:35 AM HEALTH bacterial CDT LABORATORY-C vaginosis ENTRAL LABORATORY SPECIMEN Satisfactory for evaluation 04/25/2022 [facility] ADEQUACY Endocervical component present 10:35 AM HEALTH CDT LABORATORY-C ENTRAL LABORATORY HPV REQUEST HPV not requested 04/25/2022 [facility] 10:35 AM HEALTH CDT LABORATORY-C ENTRAL LABORATORY Date of LMP 04/04/2022 04/25/2022 [facility] 10:35 AM HEALTH CDT LABORATORY-C ENTRAL LABORATORY Last Pap Date 03/04/2022 04/25/2022 [facility] 10:35 AM HEALTH CDT LABORATORY-C ENTRAL LABORATORY Last Pap UNS 04/25/2022 [facility] Result 10:35 AM HEALTH CDT LABORATORY-C ENTRAL LABORATORY Abnormal Pap Yes 04/25/2022 [facility] or [facility] Bx in 10:35 AM HEALTH last 5 years CDT LABORATORY-C ENTRAL LABORATORY [facility] Bx Done No 04/25/2022 [facility] Today 10:35 AM HEALTH CDT LABORATORY-C ENTRAL LABORATORY Additional 04/25/2022 [facility] Information 10:35 AM HEALTH CDT LABORATORY-C ENTRAL LABORATORY Comment: Interpreted at [facility], Central Laboratory - [address], [place] [address] Automated Review Successful 04/25/2022 10:35 AM [facility] ABORATORY Comment: Specimen processed successfully by automated environmental compliance manager device, ThinPrep Imaging System, [employer] Note The pap test is a 04/25/2022 10:35 AM A [facility]ALTH screening technique, not CDT LABOR ATORY-CENTRAL LABORATORY a diagnostic procedure. It is used primarily to screen for squamous cancers and precursor lesions. Published studies have shown that it is subject to both false negative and false positive results. The pap test should not be used as the sole means to diagnose or exclude pre-malignant and malignant lesions. Specimen Anatomical Collection Method Collection Time Receive d Time (Source) Location / / Volume Laterality Other (Cervical) 04/04/2022 2:45 PM 04/06 4:01 CDT PM CDT Heidy De Dios MD PATHOLOGY/CYTOLOGY Performing Organization Address City/State/ZIP Code Phon e Number [employer] [address] [place] [address] LABORATORY-CENTRAL 2000 LABORATORY CREATININE,ISTAT (03/21/2022 3:20 PM CDT) athologist Signature CREATININE, 0.70 0.57 - 03/21/2022 [employer] POCT 1.11 mg/dL 3:41 PM CDT [facility] eGFR >90 >90 03/21/2022 [facility] [employer] [facility] mL/min/1.7 3:41 PM CDT [place] 3m2 [facility] Comment: As of 2021, eGFR is calcu lated by the CKD-EPI creatinine equation without race adjustment. eGFR can be inf luenced by muscle mass, exercise, and diet. The reported eGFR is an estimation only and is only applicable if the renal function is stable. Specimen Anatomical Collection Method Collection Time Receive d Time (Source) Location / / Volume Laterality Blood BLOOD SPECIMEN / 03/21/2022 3:20 PM 03/21 3:41 Unknown CDT PM CDT Monica CHANDRA CHEMISTRY Performing Organization Address City/State/ZIP Code Phon e Number [facility] [address] [place] [address] [employer]BE[employer]OS PIPE SUPERVISOR THIN PREP PAP SCREEN IMAGED (03/04/2022 11:45 AM CDT) - Unsuccessful Attempt Component Value Ref Test Analysis Performed At [facility] gist Range Method Time Signature Case Report Gynecologic Cytology Report ? Case: [id number] ? 03/24/2022 ETHAN Authorizing Provider: ??Heidy De Dios MD ?? Collected: ? 03/04/2022 1145 ? 12:56 PM HEALTH Ordering Location: ? [facility] CENTRAL LAB ?Received: ?03/07/2022 1633 ? CDT [facility] BORATORY-C First Screen: ? Lia Jules ? ENTRAL Rescreen: ?Isela Fregoso ? LABORATORY Specimen: ?[employer] PIPE SUPERVISOR ThinPrep Vial Screening, Cervical ? INTERPRETATION UNSATISFACTORY (none) 03/24/2022 [facility] Electronically /RESULT FOR EVALUATION 12:56 PM HEALTH brenda d by ([facility]) CDT LABORATORY-C Isela Watkins ENTRAL on 03/24/20 22 at LABORATORY 12:56 PM ORGANISM(S) Shift in isaac 03/24/2022 [facility] suggestive of 12:56 PM HEALTH bacterial CDT LABORATORY-C vaginosis ENTRAL LABORATORY SPECIMEN Specimen processed and exami sheng, but unsatisfactory for evaluation of epithelial abnormality because of: 03/24/2022 [facility] ADEQUACY Scant cellularity 12:56 PM HEALTH CDT LABORATORY-C ENTRAL LABORATORY HPV REQUEST HPV if ASCUS 03/24/2022 [facility] 12:56 PM HEALTH CDT LABORATORY-C ENTRAL LABORATORY Abnormal Pap Yes 03/24/2022 [facility] or [facility] Bx in 12:56 PM HEALTH last 5 years CDT LABORATORY-C ENTRAL LABORATORY [facility] Bx Done No 03/24/2022 [facility] Today 12:56 PM HEALTH CDT LABORATORY-C ENTRAL LABORATORY Additional 03/24/2022 [facility] Information 12:56 PM HEALTH CDT LABORATORY-C ENTRAL LABORATORY Comment: Interpreted at [facility], Central Laboratory - [address], [place] [address] Automated Review Failed 03/24/2022 12:56 PM CDT [facility] LABORATORY-CENTRAL L ABORATORY Comment: Processing failed, manual scree fabio required. ThinPrep Imaging System, [employer] Note The pap test is a 03/24/2022 12:56 PM [facility] screening technique, not CDT LABOR ATORY-CENTRAL LABORATORY a diagnostic procedure. It is used primarily to screen for squamous cancers and precursor lesions. Published studies have shown that it is subject to both false negative and false positive results. The pap test should not be used as the sole means to diagnose or exclude pre-malignant and malignant lesions. Specimen Anatomical Collection Method Collection Time Receive d Time (Source) Location / / Volume Laterality Other (Cervical) 03/04/2022 11:45 022 4:33 AM CDT PM CDT Heidy De Dios MD PATHOLOGY/CYTOLOGY Performing Organization Address City/State/ZIP Code Phon e Number [employer] [address] [place] [address] LABORATORY-CENTRAL 2000 LABORATORY PATH TISSUE EXAM (03/03/2022 11:45 AM CDT) Component Value Ref Test Analysis Performed At [facility] gist Range Method Time Signature Case Report Pathology Report ?Case: [id number] ? 03/08/2022 ETHAN Authorizing Provider: ??Heidy De Dios MD ?? Collected: ? 03/03/2022 1145 ? 10:28 AM HEALTH Ordering Location: ? [facility] ?Received: ?03/04/2022 1849 ? CDT UGO WHATLEY Pathologist: ? Mihaela Nelson MD ? ENTRAL Specimen: ?Endocervical Curettings ? LABORATORY Final A) ENDOCERVIX, CURETTAGE: 03/08/2022 [facility] Electronically Diagnosis 1. Fragments of benign inact shyanne endometrium with exogenous progestin effect and endocervical and ectocervical epithelium 10 :28 AM HEALTH signed by 2. Negative for glandular ne oplasia, squamous intraepithelial lesion, and malignancy CDT LABORATORY-C Mihaela Nelson ENTRAL MD on 03/08 LABORATORY at 10:28 AM Comment A) Deeper sections 03/08/2022 [facility] were utilized to 10:28 AM [facility] evaluate this CDT LABORATORY-C specimen. ENTRAL LABORATORY Clinical BAIRON 2, s/p LEEP 03/08/2022 [facility] Information with positive 10:28 AM [facility] ectocervical CDT LABORATORY-C margin ENTRAL LABORATORY Gross A) Received in formalin, lab eled with the patient's name and date of , is a 2.5 x 0.6 cm aggregate of blood tinged mucous. The specimen is entirely submitted in 1 cassette. 03/08/2022 [facility] Description 10:28 AM [facility] SSS 03/04/2022 CDT LABORATORY-C ENTRAL LABORATORY Microscopic The final 03/08/2022 [facility] Description diagnosis is based 10:28 AM [facility] on microscopic CDT LABORATORY-C examination of ENTRAL appropriate LABORATORY sections of all specimens. Additional 03/08/2022 [facility] Information Interpreted at [facility], Central Laboratory - [address], [place] [address] 10:28 [facility] CDT LABORATORY-C ENTRAL LABORATORY Specimen Anatomical Collection Method Collection Time Receive d Time (Source) Location / / Volume Laterality Other 03/03/2022 11:45 03/04/2022 6:49 (Endocervical AM CDT PM CDT Curettings) Heidy De Dios MD PATHOLOGY/CYTOLOGY Performing Organization Address City/State/ZIP Code Phon e Number [facility] [address] [place] [address] LABORATORY-CENTRAL 2000 LABORATORY from Last 3 Months Insurance Payer Benefit Plan / Subscriber ID Effective Dates Phone Addre ss Type Group [facility] [id number] 2021-Present [address] [address] [place] [address] [phone] [place]) [place] [id number] Care Teams Continuous Improvement Facilitator Relationship Specialty Start Date End Date Alysia Longoria MD PCP - General Family Practice 10/30/12 [address] [place] [address]
--- OUTSIDE RECORDS SUMMARY | 2022-05-14 14:37 | XMS_ITS | Encounter Summary ---
:1980 Author Organization [place] Address [address] [place] [address] Care Team Providers Name Role Phone Clinic, [facility] Primary Care Provider [phone] Reason for Visit Reason Comments Tachycardia Encounter Details Date Type Department Care Team Description 06/06/2016 Emergency [facility] Ernie Holden S inus tachycardia [facility] Emergency Dep t [address] [facility] [place], [place] [address] [facility] [address] [place] [address] [phone] (Wo rk) Social History Tobacco Use Types [...] be sent through Care Everywhere. 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 She works at [employer] so she went and used their machines [...] Department Course ECG (09:38:25): Rate 101 bpm. CA interval 146. QRS duration 86. QT/QTc 344/446. [...] Disposition: Discharged to home. Gary Sharma 06/06/2016 [facility] EMERGENCY DEPARTMENT I, Gary Sharma, am serving [...] athologist Signature HCG Qual Urine Negative NEG [facility] Specimen Anatomical Collection Method Collection Time Receive d Time (Source) Location / / Volume Laterality Urine specimen URINE SPECIMEN 06/06/2016 10:46 016 (specimen) OBTAINED BY CLEAN AM CDT 10:53 AM C DT CATCH PROCEDURE / Unknown Ernie Holden MD LAB - URINE ORDERABLES Performing Organization Address City/State/ZIP Code Phon e Number M [facility] [address] [address] HOSPITAL [facility] [address] [phone] (ABNORMAL) UA with Microscopic reflex to Culture (06/06/2016 10:46 AM CDT) Patholo gist Method Time Signature Color Urine Straw [facility] Appearance Urine Clear [facility] Glucose Urine Negative NEG mg/dL [facility] Bilirubin Urine Negative NEG [facility] Ketones Urine Negative NEG mg/dL [facility] Specific [place] 1.001 (L) 1.003 - [place] Urine 1.035 [facility] Blood Urine Negative NEG [facility] pH Urine 6.0 5.0 - 7.0 [facility] Protein Albumin Negative NEG mg/dL [place] Urine [facility] Urobilinogen Normal 0.0 - 2.0 [place] mg/dL mg/dL [facility] Nitrite Urine Negative NEG [facility] Leukocyte Negative NEG [place] Esterase Urine [facility] Source Midstream [facility] WBC Urine 0 0 - 2 [place] /[facility] RBC Urine 0 0 - 2 [facility] Squamous <1 0 - 1 [place] Epithelial /HPF /HPF [facility] Mucous Urine Present (A) NEG /LPF [facility] Amorphous Few (A) NEG /HPF [place] Crystals [facility] Specimen Anatomical Collection Method Collection Time Receive d Time (Source) Location / / Volume Laterality Urine specimen URINE SPECIMEN 06/06/2016 10:46 016 (specimen) OBTAINED BY CLEAN AM CDT 10:53 AM C DT CATCH PROCEDURE / Unknown Ernie Holden MD LAB - URINE ORDERABLES Performing Organization Address City/[facility]/ZIP [facility] Phon e Number [facility] [address] [phone] [place] [address] [address] [place] [address] [address] 7, [facility] [phone] TSH with free T4 reflex (06/06/2016 10:35 AM CDT) athologist Signature TSH 2.53 0.40 - 4.00 [facility] Specimen Anatomical Collection Method Collection Time Receive d Time (Source) Location / / Volume Laterality Blood specimen 06/06/2016 10:35 6 (specimen) AM CDT 10:39 AM CDT Ernie Holden MD LAB - BLOOD ORDERABLES Performing Organization Address City/[facility]/ZIP [facility] Phon e Number [facility] [address] [address] [phone] [place] [address] [address] [address] 7, [facility] [phone] D dimer quantitative (06/06/2016 10:35 AM CDT) athologist Signature D Dimer 0.4 0.0 - 0.50 [facility] ug/ml [facility] Comment: This D-dimer assay is intended for [...] LAB - BLOOD ORDERABLES Performing Organization Address [facility] Phon e Number [facility] [address] [place], [place] [address] [phone] Troponin I (06/06/2016 10:35 AM CDT) Patholo gist Method Time Signature Troponin I ES <0.015 0.000 - [place] The 99th percentile for uppe r reference range is 0.045 ug/L. ??Troponin values in 0.045 [facility] the range of 0.045 - 0.120 ug/L may be associated wit h risks of adverse ug/L HOSPITAL clinical events. Specimen Anatomical Collection Method Collection Time Receive d Time (Source) Location / / Volume Laterality Blood specimen 06/06/2016 10:35 6 (specimen) AM CDT 10:39 AM CDT Ernie Holden MD LAB - BLOOD ORDERABLES Performing Organization Address [facility] Phon e Number [facility] [address] [place], [place] [address] [phone] (ABNORMAL) Basic metabolic panel (06/06/2016 10:35 AM CDT) athologist Signature Sodium 138 133 - 144 [place] mmol/L [facility] Potassium 4.0 3.4 - 5.3 [place] mmol/L [facility] Chloride 107 94 - 109 [place] mmol/L [facility] Carbon Dioxide 25 20 - 32 [place] mmol/L [facility] Anion Gap 6 3 - 14 [place] mmol/L [facility] Glucose 92 70 - 99 [place] mg/dL [facility] Urea Nitrogen 9 7 - 30 [place] mg/dL [facility] Creatinine 0.82 0.52 - [place] 1.04 mg/dL [facility] GFR Estimate 78 >60 [place] mL/min/1.[address] Comment: Non GFR Calc GFR Estimate If Black >90 >60 mL/min/1.7m2 F [facility] GFR Calc HOSP ITAL Calcium 8.4 (L) 8.5 - 10.1 mg/dL [facility] Specimen Anatomical Collection Method Collection Time Receive d Time (Source) Location / / Volume Laterality Blood specimen 06/06/2016 10:35 6 (specimen) AM CDT 10:39 AM CDT Ernie Holden MD LAB - BLOOD ORDERABLES Performing Organization Address City/State/ZIP Code Phon e Number [place] [address] [address] [address] [place] [phone] CBC with platelets differential (06/06/2016 10:35 AM CDT) [facility] Method Time Signature WBC 5.4 4.0 - [place] 11.0 [facility] 10e9/L [facility] RBC Count 4.88 3.8 - 5.2 [place] 10e12/L [facility] Hemoglobin 14.8 11.7 - [place] 15.7 g/dL [facility] Hematocrit 43.5 35.0 - [facility] 47.0 % [facility] MCV 89 78 - 100 [facility] MCH 30.3 26.5 - [place] 33.0 pg [facility] MCHC 34.0 31.5 - [place] 36.5 g/dL [facility] RDW 11.9 10.0 - [place] 15.0 % [facility] Platelet Count 229 150 - [address] Diff Method Automated [facility] % Neutrophils 66.9 % [facility] % Lymphocytes 24.4 % [facility] % Monocytes 6.3 % [facility] % Eosinophils 0.9 % [facility] % Basophils 0.9 % [facility] % Immature 0.6 % [place] Granulocytes [facility] Nucleated RBCs 0 0 /100 [facility] Absolute 3.6 1.6 - 8.3 [place] Neutrophil 10e/L [facility] Absolute 1.3 0.8 - 5.3 [place] Lymphocytes 10e9/L [facility] Absolute 0.3 0.0 - 1.3 [place] Monocytes 10e9/L [facility] Absolute 0.1 0.0 - 0.7 [place] Eosinophils [address] Absolute 0.1 0.0 - 0.[address] [place] Basophils [address] [place] [address] Abs Immature 0.0 0 - 0.4 [place] Granulocytes [address] [place] [address] Absolute 0.0 [place] Nucleated RBC [facility] Specimen Anatomical Collection Method Collection Time Receive d Time (Source) Location / / Volume Laterality Blood specimen 06/06/2016 10:35 6 (specimen) AM CDT 10:39 AM CDT Ernie Holden MD LAB - BLOOD ORDERABLES Performing Organization Address City/State/ZIP Code Phon e Number [place] [address] [address] [address] [place] [address] [phone] EKG 12 lead (06/06/2016 9:38 AM CDT) [facility] gist Method Time Signature Interpretation ECG Click View RADIOLOGY Image link RESULTS to view waveform and result Specimen (Source) Anatomical Collection Method Collection Time Re ceived Time Location / / Volume Laterality 06/06/2016 9:38 AM CDT Briana Hernandez MD ECG ORDERABLES Performing Organization Address City/[facility]/ZIP [facility] Phon e Number RADIOLOGY RESULTS documented in this encounter Visit Diagnoses Diagnosis Sinus tachycardia Other specified cardiac dysrhythmias documented in this encounter Active and Recently Administered Medications Care Teams Optometric Coordinator Relationship Specialty Start Date End Date Clinic, [facility] PCP - General 06/06/16 [address] [place] [address] documented as of this encounter
--- OUTSIDE RECORDS SUMMARY | 2022-05-14 14:37 | XMS_ITS | Encounter Summary ---
:1980 Author Organization [place] Address [facility] [place] [address] Care Team Providers Name Role Phone [facility] Primary Care Provider [phone] Encounter Details Date Type Department Care Team Description 06/30/2020 Orders Only [facility] Ciera Tomlinson Encounter for Christie Kebede OR MD Virgilio screening for other [address] COLON RECTAL viral diseases [place], [place] SURGERY (Primary Dx) [phone] 6[address] [facility] [phone] [place] [address] Social History Tobacco Use Types Packs/Day Years [...] Primary documented in this encounter Care Teams Filler In Relationship Specialty Start Date End Date [facility] - [facility] 06/06/16 [address] [place] [address] documented as of this encounter
--- OUTSIDE RECORDS SUMMARY | 2022-05-14 14:37 | XMS_ITS | Encounter Summary ---
:1980 Author Organization [place] Address [address] [place] [address] Care Team Providers Name Role Phone Quan Jimenez MD Primary Care Provider Reason for Visit Reason Comments Sinus Problem Encounter Details Date Type Department Care Team Description 01/02/2003 Telephone [facility] Quan Jimenez MD Sinus Problem [place] [address] [place] [address] [phone] Social History Tobacco Use Types Packs/Day Years Used Date Current Every Day Smoker 1 6 Alcohol Use Standard Drinks/Week Comments Yes 1.7 (1 standard drink = 0.6 oz pure alco hol) occasional drinks Sex Assigned at Date Recorded Not on file documented as of this encounter Miscellaneous Notes Telephone Encounter - 01/02/2003 11:59 PM CDT >> HOME OBANDO [facility] January 02, 2003 11:33 AM >> [...] pls rtn call to pt regard cold [phone] documented in this encounter Plan of Treatment Not on filedocumented as of this encounter Visit Diagnoses Not on filedocumented in this encounter Care Teams Biometrics Head Relationship Specialty Start Date End Date Quan Jimenez MD PCP - General 01/02/03 02/12/[address] [place] [address] documented as of this encounter
--- OUTSIDE RECORDS SUMMARY | 2022-05-14 14:37 | XMS_ITS | Encounter Summary ---
:1980 Author Organization [place] Address [address] [place] [address] Care Team Providers Name Role Phone Quan Jimenez MD Primary Care Provider Encounter Details Date Type Department Care Team Description 01/16/2004 Orders Only [facility] Quan Jimenez M D DIAGNOSIS NOT YET Clinic [place] [address] [place] [address] (Primary Dx) [address] [place] [address] [place], [place] [phone] (Wo rk) [address] [phone] Social History Tobacco Use Types Packs/Day Years [...] Primary documented in this encounter Care Teams Fundraising Consultant Relationship Specialty Start Date End Date Quan Jimenez MD PCP - General 01/02/03 02/12/[address] [place] [phone] documented as of this encounter
--- OUTSIDE RECORDS SUMMARY | 2022-05-14 14:37 | XMS_ITS | Encounter Summary ---
:1980 Author Organization [place] Address [address] [place] [address] Care Team Providers Name Role Phone [facility] Primary Care Provider [phone] Encounter Details Date Type Department Care Team Description 07/24/2018 Orders Only [facility] Clinic ERR ONEOUS [facility] ENCOUNTER--DISREGARD [address] [facility] (P rimary Dx) [address] [place] [address] Social History Tobacco Use Types [...] Primary documented in this encounter Care Teams Field Technical Support Consultant Relationship Specialty Start Date End Date [facility] - General 06/06/[address] [place] [address] documented as of this encounter
--- OUTSIDE RECORDS SUMMARY | 2022-05-14 14:37 | XMS_ITS | Encounter Summary ---
:1980 Author Organization [place] Address [facility] [place] [address] Care Team Providers Name Role Phone [facility] Primary Care Provider [phone] Encounter Details Date Type Department Care Team Description 07/26/2020 Orders Only [facility] Ciera Tomlinson Encounter for Christie Kebede OR MD Virgilio screening for other [address] COLON RECTAL viral diseases [place], [place] SURGERY (Primary Dx) [address] 7[address] [facility] [phone] [place] [address] Social History Tobacco Use Types Packs/Day Years [...] with No / Unsure 07/20/2020 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
--- OUTSIDE RECORDS SUMMARY | 2022-05-14 14:37 | XMS_ITS | Encounter Summary ---
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 documented as of this encounter Plan of Treatment Not on filedocumented as of this encounter Visit Diagnoses Not on filedocumented in this encounter Care Teams Splash Line Operator Relationship Specialty Start Date End Date [facility] - [facility] 06/06/[address] [place] [address] documented as of this encounter
--- OUTSIDE RECORDS SUMMARY | 2022-05-14 14:37 | XMS_ITS | Encounter Summary ---
:1980 Author Organization [place] Address [address] [place] [address] Care Team Providers Name Role Phone Quan Black MD Primary Care Provider Reason for Visit Reason Comments Medication Request Diflucan Encounter Details Date Type Department Care Team Description 01/27/2003 Telephone [facility] Quan Black M D Medication Request Clinic [address] (Diflucan) [address] [place] [address] [place] [address] Social History Tobacco Use Types [...] 27, 2003 4:15 PM RX called to [phone]; Home Obando RN >> QUAN BLACK MonJan [...] on filedocumented in this encounter Care Teams Clinical Research Nurse Relationship Specialty Start Date End Date Quan Black MD PCP - General 01/02/03 02/12/[address] [place] [address] documented as of this encounter
--- OUTSIDE RECORDS SUMMARY | 2022-05-14 14:37 | XMS_ITS | Encounter Summary ---
:1980 Author Organization [place] Address [facility] [place] [address] Care Team Providers Name Role Phone Quan Jimenez MD Primary Care Provider Reason for Visit Reason Onset Date Comments Medication Request 01/28/2004 Encounter Details Date Type Department Care Team Description 01/28/2004 Telephone [facility] Slime Benson, Medication Request Sanchez Rodriguez MD [address] [facility] [address] [place], [place] [address] [place], [place] [phone] (Wo rk) Social History Tobacco Use Types [...] closing the encounter for Lilia GOMEZ at [facility] who called in Diflucan per message below? Sandeep Schrader RN >> LILIA CONTEH MonJan 30, 2004 1:20 PM Pt. calling back. Never got Diflucan called in. Is on Amox and has thick white dc and itching. Is current on paps, so I called in Diflucan 200mg #2 to pharmacy. Please sign and close. Lilia Conteh RN >> PAPITO MARVIN [facility] Jan 29, 2004 6:56 PM Melanie, Reviewing [...] first? Sandeep Schrader RN >> MELANIE SCHRADER [facility] Jan 28, 2004 1:05 PM Staff Message copied by MELANIE SCHRADER on 01/28/2004 at 1:05 PM ------ Message from: JORGE HODGES Created: 01/27/2004 at 12:21 PM Regarding: ef-meds Contact: can she get a rx for a yeast infection? was just in with ree for a px?? would like a call back , uses [facility] [place] . documented in this encounter Plan of Treatment Not on filedocumented as of this encounter Visit Diagnoses Not on filedocumented in this encounter Care Teams Industry Consultant Relationship Specialty Start Date End Date Quan Jimenez MD PCP - General 01/02/03 02/12/[address] [place] [address] documented as of this encounter
--- OUTSIDE RECORDS SUMMARY | 2022-05-14 14:37 | XMS_ITS | Encounter Summary ---
:1980 Author Organization [place] Address [address] [place] [address]. [place] [address] Care Team Providers Name Role Phone Quan Jimenez MD Primary Care Provider Reason for Visit Reason Comments Sinus Problem Encounter Details Date Type Department Care Team Description 01/06/2004 Office Visit [facility] Wilman Duran MD ACUTE MAXILLARY Michael [address] [facility] SINUSITIS (Primary [address] [facility] [address] [phone] Social History Tobacco Use Types Packs/Day Years [...] Primary documented in this encounter Care Teams Painter Apprentice Relationship Specialty Start Date End Date Quan Jimenez MD PCP - General 01/02/03 02/12/12 [address] [place] [address] documented as of this encounter
--- OUTSIDE RECORDS SUMMARY | 2022-05-14 14:37 | XMS_ITS | Encounter Summary ---
:1980 Author Organization [place] Address [address] [place] [address] Care Team Providers Name Role Phone Quan Jimenez MD Primary Care Provider Reason for Visit Reason Onset Date Comments Care 07/12/2004 preg confirmation Encounter Details Date Type Department Care Team Description 07/12/2004 Telephone [facility] Quan Jimenez M D Care (preg Clinic [address] confirmation) [address] [place] [address] [place] [address] Social History Tobacco Use Types Packs/Day Years Used Date Current Every Day Smoker 1 6 [place] t: 04/28/2003 Alcohol Use Standard Drinks/Week Comments Yes 1.7 (1 standard drink = 0.6 oz pure alco hol) occasional drinks Sex Assigned at Date Recorded Not on file documented as of this encounter Miscellaneous Notes Telephone Encounter - 07/12/2004 8:34 AM PERSONAL BANKING ADVISOR >> HOME OBANDO MonJul 12, 2004 8:37 [...] has a question about [facility] visit to [facility] [phone] documented in this encounter Plan of Treatment Not on filedocumented as of this encounter Visit Diagnoses Not on filedocumented in this encounter Care Teams Brand Lead Relationship Specialty Start Date End Date Quan Jimenez MD PCP - General 01/02/03 02/12/[address] [place] [address] documented as of this encounter
== END 2022-05-14 14:42 | disposition home or self-care (01) ==
PROVIDERS: Emergency Provider Family Medicine; PCP Family Medicine
DX: S05.01XA Injury of conjunctiva and corneal abrasion without foreign body, right eye, initial encounter (principal)
CPT/HCPCS: 99283

== ENCOUNTER 2022-10-08 19:46 | Emergency (ER) | payer OTHER, SELFPAY ==
[2022-10-08] VITALS (7 sets, daily range): BP systolic 110–137; BP diastolic 67–81; PULSE 85–95; RESP 16–18; TEMP 36.7; O2SAT 97–100; BMI 29.1
--- NOTE | 2022-10-08 20:17 | ED.GENADULT ---
HPI - General Adult General Chief complaint: Back Injury/Pain Stated complaint: Back pain radiating towards chest area Time Seen by Provider: 10/08/22 19:53 Source: patient Mode of arrival: ambulatory Limitations: no limitations History of Present Illness HPI narrative: 42-year-old female coming in today complaining of back pain that radiates into her chest. Patient states that she was cleaning her daughter's room today and was sitting on the floor when all of a sudden she felt sharp stabbing pain by her right shoulder blade any radiated into the anterior right chest wall just below the right breast. Movement makes it worse. Sitting up straight makes it feel better. She is not short of breath, dizzy or lightheaded. She states that the pain started approximately 4 hours ago and it was about 1 hour after she had tossed a very large heavy garbage bag over her shoulder into the dump. She denies coughing and denies any recent illness. She is not on any control, denies any recent trips or sedentary long car rides, no personal history of blood clots. She is not a smoker, but did use to smoke. She states that about an hour ago she took some ibuprofen which did help but the pain is still present and quite uncomfortable. She describes it as sharp pain. Denies tearing or shearing pain. Related Data Home Medications Medication Instructions Recorded Confirmed No Known Home Medications 10/08/22 10/08/22 Allergies Allergy/AdvReac Type Severity Reaction Status Date / Time doxycycline Allergy Mild Rash Verified 10/08/22 19:59 Review of Systems Status of ROS: Reports: 10 or more systems reviewed and unremarkable except as noted in History and below [facility] Medical History (Updated 10/08/22 @ 22:16 by Loyda Camacho MD) Pre-procedural laboratory examination SVT (supraventricular tachycardia) Social History Smoking Status: Former smoker What tobacco products do you use: cigarettes Smoking quit date/years: <= 15 years ago Do you use any of these nicotine containing products: None Second hand tobacco smoke exposure: No How often do you have a drink containing alcohol: never How often do you have six or more drinks on one occasion: Never AUDIT-C Alcohol total score: 0 Non-prescribed substance use: denies use service: No Exam Narrative: Exam Narrative: Well-nourished well-developed patient in no acute distress. Alert and oriented. Answers questions appropriately. Mood and affect are appropriate. Thoughts are goal oriented and rational. No tangential or magical thinking noted. Patient speaks in full sentences without needing to catch her breath. HEENT: Normocephalic atraumatic. Pupils are equally round reactive to light. Extraocular muscles are intact. Conjunctivae are moist without any icterus noted. Moist mucous membranes. Posterior pharynx is normal. Neck is soft without any lymphadenopathy or thyromegaly. No masses are appreciated. Cardiovascular: Heart is regular rate and rhythm S1 and S2 are present without any murmurs. Lungs: Clear to auscultation bilaterally no wheezes rhonchi or rales are appreciated. Has increased discomfort with deep breaths. Abdomen: Soft and nontender nondistended with normal bowel sounds. No guarding or rebound. No masses or organomegaly appreciated. Extremities: Bilateral lower extremities are without edema. Normal DP and PT pulses. Skin: Well perfused without any obvious rashes. Back: Normal appearance. She has no acute tenderness to palpation over the cervical, thoracic, lumbar spine. No paraspinal musculature pain. Const: Vital Signs, click to edit/add: Vital Signs - 24 hr 10/08/22 19:56 10/08/22 21:11 10/08/22 20:30 Temperature 98.0 F Pulse Rate 92 Pulse Rate [Right Pulse Oximeter] 90 Respiratory Rate 18 Blood Pressure 126/69 Blood Pressure [Ri ght Upper Arm] 137/81 Pulse Oximetry 99 100 99 Oxygen Delivery Id thod Room Air Room Air 10/08/22 21:31 10/08/22 22:41 10/08/22 23:01 Temperature Pulse Rate 95 87 85 Pulse Rate [Right Pulse Oximeter] Respiratory Rate 16 18 16 Blood Pressure 121/71 110/67 111/71 Blood Pressure [Ri ght Upper Arm] Pulse Oximetry 98 97 97 Oxygen Delivery Me thod Course Course Hospital Course: Labs were unremarkable. Given the acuteness a location of her pain and the amount of pain she was having I did do an aortic dissection study which was negative. Serial troponins x3 were negative. EKG, read by me, showed normal sinus rhythm with a pulse of 94. Repeat EKG was unchanged. She received IV Toradol which brought her pain down to a 1 or 2/10. Vital Signs Vital signs: Initial Vital Signs Temperature 98.0 F 10/08/22 19:56 Temperature Source Temporal Artery Scan 10/08/22 19:56 Pulse Rate 90 10/08/22 19:56 Respiratory Rate 18 10/08/22 19:56 Blood Pressure 137/81 10/08/22 19:56 Blood Pressure Mean 99 10/08/22 19:56 Blood Pressure Position Sitting 10/08/22 19:56 Pulse Oximetry 99 10/08/22 19:56 Oxygen Delivery Method 10/08/22 19:56 Vital Signs Temperature 98.0 F 10/08/22 19:56 Pulse Rate 90 10/08/22 19:56 Respiratory Rate 18 10/08/22 19:56 Blood Pressure 137/81 10/08/22 19:56 Pulse Oximetry 99 10/08/22 19:56 Oxygen Delivery Method 10/08/22 19:56 Temperature 98.0 F 10/08/22 19:56 Pulse Rate 85 10/08/22 23:01 Respiratory Rate 16 10/08/22 23:01 Blood Pressure 111/71 10/08/22 23:01 Pulse Oximetry 97 10/08/22 23:01 Oxygen Delivery Method 10/08/22 21:11 Medical Decision Making MDM Narrative Medical decision making narrative: 42-year-old female with back pain radiating into the chest, likely musculoskeletal in nature. We did do a fairly thorough workup with negative D-dimer, negative CT for aortic dissection, negative cardiac enzymes. Of no she does have pulmonary nodules with a smoking history, repeat CT in 3-6 months recommended. We discussed symptomatic treatment reasons for follow-up. Patient was agreeable had no other questions. Lab Data Lab results reviewed: Yes I reviewed the patient's lab results Labs: Lab Results 10/08/22 10/08/22 10/08/22 Range/Units 20:15 20:15 20:15 WBC 8.63 (4.50-11.00) K/uL RBC 4.22 (4.00-5.20) m/uL Hgb 12.9 (12.0-16.0) gm/dL Hct 37.2 (33.0-51.0) % MCV 88 (80-100) fL MCH 31 (26-34) pg MCHC 35 (32-36) gm/dL RDW Coeff of Ruben 11.7 (11.5-15.5) % Plt Count 210 (140-440) K/uL Neut % (Auto) 75.2 H (42.0-72.0) % Lymph % (Auto) 16.7 L (20-44) % [place] % (Auto) 6.6 (0.0-11.0) % Eos % (Auto) 1.0 (0.0-7.0) % Baso % (Auto) 0.3 (0.0-3.0) % Neut # (Auto) 6.50 (1.7-7.0) K/uL Lymph # (Auto) 1.40 (0.90-2.90) K/uL [place] # (Auto) 0.60 (0.00-0.90) K/UL Eos # (Auto) 0.09 (0.00-0.50) K/uL Baso # (Auto) 0.03 (0.00-0.30) K/uL D-Dimer Quant (PE/DVT) 0.34 (0.00-0.50) ug/ml Sodium 137 (135-149) mmol/L Potassium 3.7 (3.6-5.1) mmol/L Chloride 105 (96-114) mmol/L Carbon Dioxide 23 (20-32) mmol/L BUN 9 (5-24) mg/dL Creatinine 0.7 (0.5-1.5) mg/dL Estimated Creat Clear 96.01 Estimated GFR 109 ml/min Glucose 102 (60-115) mg/dL Lactate (0.5-1.9) mmol/L Calcium 8.3 L (8.4-10.6) mg/dL Total Bilirubin (0.1-1.5) mg/dL Direct Bilirubin (0.0-0.5) mg/dL AST (12-35) U/L ALT (4-35) U/L Alkaline Phosphatase (40-150) U/L C-Reactive Protein 1.2 H (0.5-1.0) mg/dL Total Protein (6.0-8.3) g/dL Albumin (3.3-5.0) g/dL Lipase (23-300) U/L POC Troponin I (0.01-0.04) ng/ml 10/08/22 10/08/2210/08/23 Range/Units 20:15 20:15 20:15 WBC (4.50-11.00) K/uL RBC (4.00-5.20) m/uL Hgb (12.0-16.0) gm/dL Hct (33.0-51.0) % MCV (80-100) fL MCH (26-34) pg MCHC (32-36) gm/dL RDW Coeff of Ruben (11.5-15.5) % Plt Count (140-440) K/uL Neut % (Auto) (42.0-72.0) % Lymph % (Auto) (20-44) % [place] % (Auto) (0.0-11.0) % Eos % (Auto) (0.0-7.0) % Baso % (Auto) (0.0-3.0) % Neut # (Auto) (1.7-7.0) K/uL Lymph # (Auto) (0.90-2.90) K/uL [place] # (Auto) (0.00-0.90) K/UL Eos # (Auto) (0.00-0.50) K/uL Baso # (Auto) (0.00-0.30) K/uL D-Dimer Quant (PE/DVT) (0.00-0.50) ug/ml Sodium (135-149) mmol/L Potassium (3.6-5.1) mmol/L Chloride (96-114) mmol/L Carbon Dioxide (20-32) mmol/L BUN (5-24) mg/dL Creatinine (0.5-1.5) mg/dL Estimated Creat Clear Estimated GFR ml/min Glucose (60-115) mg/dL Lactate 1.4 (0.5-1.9) mmol/L Calcium (8.4-10.6) mg/dL Total Bilirubin 0.5 (0.1-1.5) mg/dL Direct Bilirubin 0.1 (0.0-0.5) mg/dL AST 24 (12-35) U/L ALT 22 (4-35) U/L Alkaline Phosphatase 65 (40-150) U/L C-Reactive Protein (0.5-1.0) mg/dL Total Protein 7.4 (6.0-8.3) g/dL Albumin 4.2 (3.3-5.0) g/dL Lipase 161 (23-300) U/L POC Troponin I 0.00 L (0.01-0.04) ng/ml 10/08/22 10/08/22 Range/Units 21:45 23:12 WBC (4.50-11.00) K/uL RBC (4.00-5.20) m/uL Hgb (12.0-16.0) gm/dL Hct (33.0-51.0) % MCV (80-100) fL MCH (26-34) pg MCHC (32-36) gm/dL RDW Coeff of Ruben (11.5-15.5) % Plt Count (140-440) K/uL Neut % (Auto) (42.0-72.0) % Lymph % (Auto) (20-44) % [place] % (Auto) (0.0-11.0) % Eos % (Auto) (0.0-7.0) % Baso % (Auto) (0.0-3.0) % Neut # (Auto) (1.7-7.0) K/uL Lymph # (Auto) (0.90-2.90) K/uL [place] # (Auto) (0.00-0.90) K/UL Eos # (Auto) (0.00-0.50) K/uL Baso # (Auto) (0.00-0.30) K/uL D-Dimer Quant (PE/DVT) (0.00-0.50) ug/ml Sodium (135-149) mmol/L Potassium (3.6-5.1) mmol/L Chloride (96-114) mmol/L Carbon Dioxide (20-32) mmol/L BUN (5-24) mg/dL Creatinine (0.5-1.5) mg/dL Estimated Creat Clear Estimated GFR ml/min Glucose (60-115) mg/dL Lactate (0.5-1.9) mmol/L Calcium (8.4-10.6) mg/dL Total Bilirubin (0.1-1.5) mg/dL Direct Bilirubin (0.0-0.5) mg/dL AST (12-35) U/L ALT (4-35) U/L Alkaline Phosphatase (40-150) U/L C-Reactive Protein (0.5-1.0) mg/dL Total Protein (6.0-8.3) g/dL Albumin (3.3-5.0) g/dL Lipase (23-300) U/L POC Troponin I 0.02 0.00 L (0.01-0.04) ng/ml Imaging Data CT Chest/Ab/Pelvis: Attestation: I have reviewed the pertinent imaging results. Radiologist's impression: TECHNIQUE: Noncontrast CT chest followed by CT chest, abdomen, and pelvis with i.v. contrast during the arterial phase. Coronal and sagittal reformats were obtained. CONTRAST: 95 mL Isovue 370 COMPARISON: None FINDINGS: CHEST: Cardiovascular: The heart has an unremarkable appearance and size. No evidence of intramural hematoma, aneurysm, or dissection in the thoracic aorta. The pulmonary arteries are unremarkable in appearance. No acute pulmonary emboli seen in the central pulmonary arteries. Mediastinum: No mass or adenopathy seen. Lung: There is a 2 mm granuloma present in the lateral right upper lobe. A 3 mm nodule is present in the right middle lobe there is a subpleural 5 mm nodule present in the lingula. Pleura and pericardium: No sign of pleural effusion seen. No significant pericardial effusion is present. Chest wall and axilla: No mass or adenopathy seen. Bone: Unremarkable for age. No acute osseous injuries seen. ABDOMEN/PELVIS: Liver: Unremarkable. Spleen: Unremarkable. Pancreas: Unremarkable. Gallbladder: Unremarkable. Kidney: Unremarkable. No kidney or ureteral stones or obstruction seen. Adrenal: Unremarkable. Bowel: Unremarkable. The appendix is normal in appearance and size. Vascular: Unremarkable. Lymph: Unremarkable. Peritoneum: Unremarkable. No pneumoperitoneum is seen. Trace amount of ascites is present and is likely physiologic in origin. Pelvis: Unremarkable. Soft tissue: Unremarkable. Bone: Unremarkable for age. No acute osseous injuries seen. IMPRESSIONS: 1. No CT evidence of intramural hematoma or aortic dissection seen. 2. Subcentimeter pulmonary nodules are noted bilaterally. Initial follow-up CT in 3-6 months is recommended in accordance with the 2017 Revised Fleischner Society Recommendations. ECG Data Attestation: I personally reviewed and interpreted this ECG as follows: Discharge Plan Discharge Clinical Impression: Back pain Patient Disposition: Home, Self-Care Condition: Stable Additional Instructions: Okay to continue using ibuprofen or Tylenol as needed for discomfort. Okay to use a heating pad to sore areas, do not apply heat directly to skin. If you are getting worse over the next couple days instead of better return to the ER. You have small pulmonary nodule seen on your CT scan. Recommend you follow-up with your primary care provider to discuss repeat CT scan recommendations. Prescriptions: No Action No Known Home Medications Follow Up/Referrals: Alysia Longoria MD [Primary Care Provider] - Stand Alone Forms: [employer] Info Instructions
--- NOTE | 2022-10-08 20:20 | CRLHL7_ITS ---
For Patients: As a result of the Century Cures Act, medical imaging exams and procedure reports are released immediately into your electronic medical record. You may view this report before your referring provider. If you have questions, please contact your health care provider. INDICATION: Right anterior chest pain 4-5 hours TECHNIQUE: Noncontrast CT chest followed by CT chest, abdomen, and pelvis with i.v. contrast during the arterial phase. Coronal and sagittal reformats were obtained. CONTRAST: 95 mL Isovue 370 COMPARISON: None FINDINGS: CHEST: Cardiovascular: The heart has an unremarkable appearance and size. No evidence of intramural hematoma, aneurysm, or dissection in the thoracic aorta. The pulmonary arteries are unremarkable in appearance. No acute pulmonary emboli seen in the central pulmonary arteries. Mediastinum: No mass or adenopathy seen. Lung: There is a 2 mm granuloma present in the lateral right upper lobe. A 3 mm nodule is present in the right middle lobe there is a subpleural 5 mm nodule present in the lingula. Pleura and pericardium: No sign of pleural effusion seen. No significant pericardial effusion is present. Chest wall and axilla: No mass or adenopathy seen. Bone: Unremarkable for age. No acute osseous injuries seen. ABDOMEN/PELVIS: Liver: Unremarkable. Spleen: Unremarkable. Pancreas: Unremarkable. Gallbladder: Unremarkable. Kidney: Unremarkable. No kidney or ureteral stones or obstruction seen. Adrenal: Unremarkable. Bowel: Unremarkable. The appendix is normal in appearance and size. Vascular: Unremarkable. Lymph: Unremarkable. Peritoneum: Unremarkable. No pneumoperitoneum is seen. Trace amount of ascites is present and is likely physiologic in origin. Pelvis: Unremarkable. Soft tissue: Unremarkable. Bone: Unremarkable for age. No acute osseous injuries seen. IMPRESSIONS: 1. No CT evidence of intramural hematoma or aortic dissection seen. 2. Subcentimeter pulmonary nodules are noted bilaterally. Initial follow-up CT in 3-6 months is recommended in accordance with the 2017 Revised Fleischner Society Recommendations. Dictated by Jesse Chin MD @ 10/08/2022 9:32:30 PM Please note that all CT scans at this facility use dose modulation, iterative reconstruction, and/or weight-based dosing when appropriate to reduce radiation dose to as low as reasonably achievable. Dictated by: Jesse Chin MD @ 10/08/2022 21:32:35 (Electronically Signed)
[2022-10-08 20:24] LABS: Basophils Absolute Auto 0.03 K/uL (0.00-0.30); Basophils Percent Auto 0.3 % (0.0-3.0); Eosinophils Absolute Auto 0.09 K/uL (0.00-0.50); Hematocrit 37.2 % (33.0-51.0); Hemoglobin* 12.9 gm/dL (12.0-16.0); Immature Granulocytes Abs Auto 0.02 K/uL (0.00-0.30); Immature Granulocytes Pct Auto 0.2 %; Lymphocytes Percent Auto 16.7 % (20-44); Mean Corpuscular HGB Conc 35 gm/dL (32-36); Mean Corpuscular Hemoglobin 31 pg (26-34); Mean Corpuscular Volume 88 fL (80-100); Monocytes Percent Auto 6.6 % (0.0-11.0); Neutrophils Percent Auto 75.2 % (42.0-72.0); Platelet Count* 210 K/uL (140-440); RDW Coefficient of Variation % 11.7 % (11.5-15.5); Red Blood Count 4.22 m/uL (4.00-5.20); White Blood Count* 8.63 K/uL (4.50-11.00)
[2022-10-08 20:26] LABS: Lactate* 1.4 mmol/L (0.5-1.9)
[2022-10-08 20:27] LABS: Slide Review Reflex No
[2022-10-08 20:43] LABS: Albumin* 4.2 g/dL (3.3-5.0); Chloride* 105 mmol/L (96-114)
[2022-10-08 20:44] LABS: Potassium* 3.7 mmol/L (3.6-5.1); Sodium* 137 mmol/L (135-149)
[2022-10-08 20:46] LABS: Alanine Aminotransferase* 22 U/L (4-35); Alkaline Phosphatase* 65 U/L (40-150); Aspartate Amino Transferase* 24 U/L (12-35); Bilirubin Direct* 0.1 mg/dL (0.0-0.5); Bilirubin Total* 0.5 mg/dL (0.1-1.5); Creatinine* 0.7 mg/dL (0.5-1.5); Est. Creatinine Clearance* 96.01; Estimated Glomerular Filt Rate 109 ml/min; Lipase* 161 U/L (23-300); Total Protein* 7.4 g/dL (6.0-8.3)
[2022-10-08 20:47] LABS: Blood Urea Nitrogen* 9 mg/dL (5-24); Carbon Dioxide* 23 mmol/L (20-32); D Dimer Quantitative* 0.34 ug/ml (0.00-0.50)
[2022-10-08 20:48] LABS: Calcium* 8.3 mg/dL (8.4-10.6); Glucose* 102 mg/dL (60-115)
[2022-10-08 20:50] LABS: C Reactive Protein* 1.2 mg/dL (0.5-1.0)
[2022-10-08] MEDS: KETOROLAC 30 MG/ML inj IVP (21:08)
[2022-10-08 22:20] LABS: Troponin, Point-of-Care* 0.02 ng/ml (0.01-0.04)
== END 2022-10-08 23:30 | disposition home or self-care (01) ==
PROVIDERS: Emergency Provider Family Medicine; PCP Family Medicine
DX: M54.9 Dorsalgia, unspecified (principal)
CPT/HCPCS: 36415; 71260; 74177; 80048; 80076; 83605; 83690; 84484; 85025; 85379; 86140; 93005; 94761; 96374; 99284; 99285; J1885; Q9967

== ENCOUNTER 2022-12-22 07:38 | Day surgery (SDC) | payer OTHER, SELFPAY ==
[2022-12-22] MEDS: SODIUM CHLORIDE 0.9 % (FLUSH) 10 ML SYRINGE IVF (07:55)
[2022-12-22] MEDS: LACTATED RINGERS 1000 ML 1,000 ML 100 ML IV (07:55)
[2022-12-22 08:05] VITALS: BP 134/83; PULSE 84; RESP 16; TEMP 36.5; O2SAT 100; BMI 28.4
[2022-12-22 08:15] LABS: Hemoglobin* 13.7 gm/dL (12.0-16.0)
[2022-12-22 08:16] LABS: Ur HCG Qualitative* Negative (Negative)
--- NOTE | 2022-12-22 09:12 | W.ANESCHARGE ---
Anesthesia Charges Start Date/Time Anesthesia Start Date: 12/22/22 Anesthesia Start Time: 08:54 Stop Date/Time Anesthesia Stop Date: 12/22/22 Anesthesia Stop Time: 10:29
--- NOTE | 2022-12-22 09:26 | W.ANESCHARGE ---
Anesthesia Charges Start Date/Time Anesthesia Start Date: 12/22/22 Anesthesia Start Time: 08:54 Stop Date/Time Anesthesia Stop Date: 12/22/22 Anesthesia Stop Time: 10:29
[2022-12-22] MEDS: FERRIC SUBSULFATE 8 GM VIAL 1 VIAL TOPICAL (10:12)
[2022-12-22 10:30] VITALS: BP 104/58; PULSE 72; RESP 16; TEMP 36; O2SAT 100
[2022-12-22 10:45] VITALS: BP 104/56; PULSE 69; RESP 16; O2SAT 99
--- NOTE | 2022-12-22 10:45 | P.GYNPRC_ITS ---
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 The transformation zone was flattened, consistent with previous LEEP. Uterus was retroverted and normal size. No palpable adnexal masses. COMPLICATIONS: None PROCEDURE IN DETAIL: Patient was taken to the operating room with IV running. She was positioned in dorsal lithotomy position with her legs fully supported in Yellofin stirrups. Monitored anesthesia care was administered. She was prepped and draped in the usual sterile fashion. Bimanual exam was performed for the above-noted findings. She was given 2 g of IV cefazolin in preoperative prophylaxis. Speculum was inserted. The cervix was circumferentially injected with a total 20 mL of 1% lidocaine with dilute epinephrine. Stay sutures were placed at 3 and 9 o'clock, using 0 Vicryl, and tagged to provide traction. Single-tooth tenaculum was placed on both the anterior and posterior cervical lips. Scalpel was used to make a circumferential incision around the ectocervix, me dial to the stay sutures and within the tenacula. However, the initial excised specimen contained almost entirely ectocervical mucosa, as the shape of the cervix had been unchanged rather dramatically from previous LEEP. This 1st excision was sent as its own separate specimen. This initial excision of ectocervical mucosa that was rather shallow revealed the endocervical canal. Again, the cervix was grasped with tenacula and Allis clamps outside of the planned margin of excision. An additional circumferential incision was made with a scalpel, encompassing the endocervical canal. The length of the specimen was approximately 1 cm. This was sent to pathology as discrete specimen as well, marked at 12 o'clock on the ectocervical margin. The bed of the cold knife cone was 1st addressed with monopolar cautery. Bleeding was noted along the right side of the bed, where there was some separation between the cervical vaginal mucosa and the underlying cervical stroma. This was 1st addressed with the [id number] suture of 0 Vicryl. Thereafter, sternum door sutures were placed along the anterior cervical lip, and tied tightly down into the endocervical stroma. Before tying the sutures down, Jonah was placed in the cone bed. Finally, Monsel's solution was applied. After this point, negligible bleeding was noted. Bladder was straight catheterized for 150 mL. Patient tolerated procedure well was taken to recovery area in stable condition.
[2022-12-22] MEDS: OXYCODONE 5 MG TABLET PO (10:53)
[2022-12-22 11:01] VITALS: BP 107/77; PULSE 69; RESP 16; TEMP 36.4; O2SAT 100
== END 2022-12-22 11:25 | disposition home or self-care (01) ==
PROVIDERS: PCP Family Medicine; Visit Provider Obstetrics & Gynecology
PROC: 0UBC7ZZ Excision of Cervix, Via Natural or Artificial Opening (ICD-10-PCS; CPT 57520; principal; 2022-12-22 08:45)
DX: C53.9 Malignant neoplasm of cervix uteri, unspecified (principal)
CPT/HCPCS: 57520; 36415; 81025; 82565; 85018; 86850; 86900; 86901; 88307; 88342; 940; A9270; J2250; J2704; J3010; J7120

== ENCOUNTER 2023-03-30 08:50 | Day surgery (SDC) | payer OTHER, SELFPAY ==
[2023-03-30] VITALS (25 sets, daily range): BP systolic 90–120; BP diastolic 55–88; PULSE 64–84; RESP 10–16; TEMP 36.2–37.1; O2SAT 93–100; BMI 29.9
[2023-03-30 09:49] LABS: Ur HCG Qualitative* Negative (Negative)
--- NOTE | 2023-03-30 09:59 | W.ANESCHARGE ---
Anesthesia Charges Start Date/Time Anesthesia Start Date: 03/30/23 Anesthesia Start Time: 10:20 Stop Date/Time Anesthesia Stop Date: 03/30/23 Anesthesia Stop Time: 12:01
[2023-03-30] MEDS: VASOPRESSIN 20 UNIT/ML INJ INJECTION (10:00)
[2023-03-30] MEDS: 0.9 % SODIUM CHLORIDE 50 ml INJECTION (10:00)
[2023-03-30 10:06] LABS: Hemoglobin* 13.6 gm/dL (12.0-16.0)
--- NOTE | 2023-03-30 10:18 | W.PM.H&PU ---
History & Physical Update History & Physical Update H&P Reviewed and patient assessed: No changes noted H&P Updates: Preoperative diagnosis: Adenocarcinoma in-situ of the cervix Planned procedures: Total vaginal hysterectomy, bilateral salpingectomy, cystoscopy General: Pleasant, no acute distress Heart: Regular rate and rhythm, no murmur or gallop Lungs: Clear to auscultation bilaterally Labs: A positive, antibody negative Urine test negative Hemoglobin 13.6 Creatinine pending
[2023-03-30 10:27] LABS: Creatinine* 0.7 mg/dL (0.5-1.5); Est. Creatinine Clearance* 91.32; Estimated Glomerular Filt Rate 109 ml/min
[2023-03-30] MEDS: CEFAZOLIN 2 GM in 0.9 % SODIUM CHLORIDE Mini-bag 100 ML IVPB (10:32)
[2023-03-30] MEDS: LACTATED RINGERS 1000 ML 1,000 ML 100 ML IV (10:35)
--- NOTE | 2023-03-30 12:03 | W.ANESCHARGE ---
Anesthesia Charges Start Date/Time Anesthesia Start Date: 03/30/23 Anesthesia Start Time: 10:20 Stop Date/Time Anesthesia Stop Date: 03/30/23 Anesthesia Stop Time: 12:01
--- NOTE | 2023-03-30 12:34 | W.PM.GYNPROC ---
Procedure Note Date of procedure: 03/30/23 Pre-op diagnosis: Adenocarcinoma in Situ of cervix Post-op diagnosis: same Procedure: Total vaginal hysterectomy, bilateral salpingectomy, cystoscopy Anesthesia: spinal Complications: None Surgeon: Heidy De Dios MD Scenery Builder: Apple Kline Estimated blood loss (mL): 25 IV fluids (mL): 1,000 Pathology: specimen obtained, sent to pathology Condition: stable Disposition: PACU Findings: 1. Upon pelvic exam under anesthesia, vagina was normal in appearance. Cervix was foreshortened and scarred, consistent in appearance with 2 previous LEEPs and a cold knife cone biopsy. Uterus was mobile, midposition, and of normal size and texture. 2. Normal appearance of uterus, bilateral tubes, and visualized portions of bilateral ovaries. Uterine weight 125 g. Procedure Description: Patient was taken to the operating room with IV running. Spinal anesthesia was administered. She received cefazolin in preoperative prophylaxis. She was positioned in dorsal lithotomy position with her legs in Yellofin stirrups. Exam under anesthesia was performed for the above noted findings. Vaughn catheter was inserted. Weighted speculum was inserted. Cervix was grasped along its anterior and posterior lips with thyroid Srikanth clamps. The cervical vaginal junction was circumferentially infiltrated with dilute vasopressin. The cervical vaginal junction was then incised circumferentially with scalpel. The vaginal epithelium was dissected bluntly off bilateral uterosacral ligaments. Anterior colpotomy was performed sharply, and a Vader retractor was placed between the bladder and the uterus. The posterior colpotomy was performed sharply, and a long weighted speculum was placed in the cul-de-sac. Bilateral uterosacral ligaments were clamped, cut, suture ligated with 0 Vicryl, and tagged for later identification. The cardinal ligaments were serially clamped, cut, and suture ligated bilaterally with 0 Vicryl. Finally, the remnants of the broad ligament serially clamped, cauterized, and transected with the LigaSure Impact device, ultimately freeing the uterus from its attachments to the pelvis. The uterus was delivered through the vagina. Visualized portions of bilateral ovaries were normal in appearance. Bilateral fallopian tubes were then removed. Each was grasped with Jonathan clamps, and held away from the surrounding intestines and pelvic sidewall with ease. The LigaSure Impact device was used to cauterize and transect the blood supply and the investing mesosalpinx. The tubes were sent to pathology. The angles of the vaginal cuff were closed with a stitch of 0 Vicryl, incorporating the distal most aspect of the uterosacral pedicle into the closure. The intervening vaginal cuff was closed with a series of [id number] sutures of 0 Vicryl. Hemostasis was noted. All instruments were removed from the vagina. Vaughn catheter was removed from the patient's bladder. Patient was administered IV sodium fluorescein to aid in visualization of ureteral jets. Cystoscopy was performed, revealing bilateral ureteral jets and no injury to the bladder. The cystoscope was removed and the Vaughn catheter replaced. Patient tolerated procedure well and was taken to recovery area in stable condition.
[2023-03-30] MEDS: LACTATED RINGERS 1000 ML 1,000 ML 125 ML IV ×2 (13:19→16:45)
[2023-03-30] MEDS: IBUPROFEN 600 MG TABLET PO (13:33)
--- NOTE | 2023-03-30 15:21 | PC.NURSE ---
End of shift nursing note, pt arrived from PACU at 1245, pt alert and oriented, initially had numbness to BLE and buttocks from spinal. Vitals stable. PRN ibuprofen admin around 1330, dc'd and starting scheduled Toradol this evening. On LR into R hand IV at 125ml/hr. Tolerating PO intake at this time. Vaughn in place, adequate output. Scant spotting noted to pad under pt. aware and states spotting is normal. Pt having jello now. Call light within reach, able to use appropriately. Continues on post-op vital checks.
[2023-03-30] MEDS: ACETAMINOPHEN 325 MG TABLET 650 MG PO (16:27)
[2023-03-30] MEDS: diphenhydrAMINE 50 MG/ML inj 12.5 MG IVP (16:43)
--- NOTE | 2023-03-30 19:12 | PC.NURSE ---
Patient reported pain 3/10 near her umbilicus. Pt was given PRN Tylenol at 16:27 which was effective. Pt continues to use cold pack to abdomen. Pt was given PRN diphenhydramine at 16:43 for c/o of all over itching. Pt reported some relief but declined any further doses when offered. Pt up walking in hallway with stand-by assist. Vaughn catheter patent. 200mL output of bright yellow urine. Small amount of blood in sanitary pad. Ate 100% of her meal. Pain rated 0/10 at 1800. Blood pressures soft all other VSS.
[2023-03-30] MEDS: KETOROLAC 30 MG/ML inj IVP (19:56)
[2023-03-30] MEDS: MAGNESIUM OXIDE 400 MG TABLET PO (21:59)
--- NOTE | 2023-03-30 22:42 | PC.NURSE ---
Shift [id number]- Patient is somewhat itchy, declines additional benadryl. Itchiness subsides as evening progresses. She is up with SBA and walks the halls. Vaughn patent and draining. Minimal vaginal bleeding. States satisfaction with pain level.
[2023-03-31] MEDS: KETOROLAC 30 MG/ML inj IVP ×2 (02:16→08:52)
[2023-03-31 03:00] VITALS: BP 118/76; PULSE 113; RESP 16; O2SAT 97
--- NOTE | 2023-03-31 06:04 | PC.NURSE ---
Shift note: Pt rates pain 1-11/04, Scheduled Ketorolac administered with relief, pt did not request PRN pain medications during this shift. She tolerates PO food and fluids with no c/o of nausea. Vaughn in place, intact and draining, afebrile, ambulates independently
[2023-03-31 06:37] LABS: Creatinine* 0.8 mg/dL (0.5-1.5); Est. Creatinine Clearance* 79.91; Estimated Glomerular Filt Rate 93 ml/min
[2023-03-31 08:00] VITALS: BP 96/58; PULSE 67; RESP 16; TEMP 36.7; O2SAT 96
[2023-03-31 11:00] VITALS: BP 99/63; PULSE 76; RESP 16; TEMP 36.8; O2SAT 98
--- NOTE | 2023-03-31 14:19 | PC.NURSE ---
Discharge note: Pt alert and oriented, vitally stable last BP 99/63, pt denies dizziness, afebrile. Up ind in room. Trial void successful this AM, joe backfilled w/ 300 NS, joe removed and able to void 300ml within a few min of joe being removed. Pt had shower prior to d/c. IV removed, catheter intact. Pt rates pain 0-3/10 pain, had scheduled Toradol in AM, declined need for further PRN. Up amb without issue or concern. Tolerating diet and adequate oral intake this shift. D/c instructions reviewed with pt, questions answered. Pt amb w/ justowriter operator to friend's car for transport home.
--- NOTE | 2023-04-02 22:10 | P.DS_ITS ---
DS: Providers Provider Date Seen: 03/31/23 Primary care physician: Alysia Longoria MD Attending Physician on discharge: Heidy De Dios MD Date of Discharge: 03/31/23 DS: Diagnosis Discharge Diagnosis (1) Adenocarcinoma in situ (AIS) of uterine cervix: Status: Acute Problem details: (2) S/P vaginal hysterectomy: Status: Acute [employer] IN[employer]KER-Discharge Summary Hospital Course Hospital Course Narrative: Patient is a 43 year old admitted on 03/30/23 for total vaginal hysterectomy, bilateral salpingectomy and cystoscopy. Indication for surgery: Adenocarcinoma in situ of cervix. Intraoperative findings were notable for foreshortened cervix. Uterus, tubes and ovaries were normal in appearance, and cystoscopy was normal. She had an uncomplicated surgery. Postoperative course has been uneventful. Vitals have been stable. She has remained afebrile. Today, on postoperative day 1, she reports the pain is well controlled. She has been able to ambulate Without difficulty. She is tolerating regular diet. She is passing flatus. Vaughn catheter has been removed, and she is voiding without difficulty. Time Spent with Patient Time attestation: Total time spent providing and/or coordinating discharge services: Time spent: Less than 30 minutes [employer] - Exam Physical Exam: Vital signs: Temp Pulse Resp BP Pulse Ox O2 Del Method 98.2 F 76 16 99/63 98 Room Air 03/31/23 11:00 03/31/23 11:00 03/31/23 11:00 03/31/23 11:00 03/31/23 11:00 03/31/23 11:00 Narrative: Gen - NAD Heart - RRR, no M/R/G Lungs - CTAB Abd - NABS, soft, mildly tender, no distention, rebound or guarding LE - no edema or erythema [employer] - DS: Data Data Completed and Pending Labs on day of discharge: normal Hb and creatinine Procedures Procedures: Procedures Operation Date: 03/30/23 10:20 Actual Procedure Side Surgeon p Total Vaginal Hysterectomy, Bilateral Salpingectomy, Cystoscopy Not Applicable Heidy De Dios MD Complications: none Discharge Plan Discharge Disposition: Home, Self-Care Discharging Surgeon: Heidy De Dios Follow-Up Appointment: 1 [address] 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 Last took in Sep 2022. fluticasone propionate 50 mcg/actuation spray,suspension 1 spray intranasal DAILY PRN Rx Instructions: administer into each nostril loratadine [Claritin] 10 mg tablet 10 mg PO DAILY ibuprofen 600 mg Tablet 600 mg PO Q6H PRN (Reason: Pain) Qty: 30 0RF Discharge Diet: Regular Patient Instructions: Ibuprofen (By mouth), Laxative, Stool Softeners (By mouth) (Doculax, Colace, Colace Clear, DSS), Oxycodone, Rapid Release (By mouth), Vaginal Hysterectomy (DC) Forms: Work/School Release Follow-up: Heidy De Dios MD [Staff Physician] - 04/07/23 8:45 am ([facility]) Alysia Longoria MD [Primary Care Provider] - Discharge Orders: Discharge Order (Routine); Ordered 03/31/23 Ordered By: Heidy De Dios Consulting provider completed their portion of the discharge: Yes
== END 2023-03-31 13:36 | disposition home or self-care (01) ==
LOC: OR 09:15 → MEDSURG 09:16
PROVIDERS: PCP Family Medicine; Visit Provider Obstetrics & Gynecology
PROC: (CPT 58262; principal; 2023-03-30 10:00)
DX: C53.9 Malignant neoplasm of cervix uteri, unspecified (principal); N84.0 Polyp of corpus uteri; D25.1 Intramural leiomyoma of uterus
CPT/HCPCS: 58262; 00944; 36415; 81025; 82565; 85018; 86850; 86900; 86901; 88309; A9270; J0690; J1100; J1200; J1885; J2250; J2274; J2405; J2704; J3010; J7120

== ENCOUNTER 2023-05-13 03:29 | Emergency (ER) | payer OTHER, SELFPAY ==
[2023-05-13 03:37] VITALS: BP 131/86; PULSE 89; RESP 18; TEMP 35.8; O2SAT 100
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
== END 2023-05-13 04:19 | disposition home or self-care (01) ==
LOC: ED 03:55
PROVIDERS: Emergency Provider Internal Medicine; PCP Family Medicine
DX: S00.83XA Contusion of other part of head, initial encounter (principal); X58.XXXA Exposure to other specified factors, initial encounter; Z71.1 Person with feared health complaint in whom no diagnosis is made
CPT/HCPCS: 99281; 99282; 99283

== ENCOUNTER 2024-08-14 10:03 | Emergency (ER) | payer OTHER, SELFPAY ==
[2024-08-14 10:07] VITALS: BP 120/77; PULSE 75; RESP 18; TEMP 35.8; O2SAT 98
--- NOTE | 2024-08-14 10:46 | ED.GENADULT ---
HPI - General Adult General Chief complaint: Laceration/Wound Stated complaint: laceration right index finger Time Seen by Provider: 08/14/24 10:39 Source: patient Mode of arrival: ambulatory Limitations: no limitations History of Present Illness HPI narrative: 44-year-old female coming in today after she suffered a laceration to the tip of the pointer finger on the right hand. She was cleaning up the sink when she came into contact with a broken piece of glass. Denies any other injury. Tetanus shot is up-to-date. Related Data Home Medications ?Medication ?Instructions ?Recorded ?Confirmed albuterol sulfate 90 mcg/actuation 2 inh inhalation Q4H PRN 12/09/22 08/14/24 aerosol inhaler azelaic acid 15 % topical gel 1 applic topical DAILY 12/09/22 08/14/24 azelastine 137 mcg (0.1 %) nasal 1 spray intranasal Q12H 12/09/22 08/14/24 spray propranolol 20 mg tablet 10 mg PO ONCE PRN 12/09/22 08/14/24 fluticasone propionate 50 1 spray intranasal DAILY PRN 03/28/23 08/14/24 mcg/actuation nasal spray,suspension sulfacetamide sodium-sulfur 10 %-5 1 applic topical .PRN 01/23/24 08/14/24 % (w/w) topical cream Allergies Allergy/AdvReac Type Severity Reaction Status Date / Time doxycycline Allergy Mild Rash Verified 08/14/24 10:12 tetracycline Allergy Rash Verified 08/14/24 10:12 Review of Systems Status of ROS: Reports: 6 or more systems reviewed and unremarkable except as noted in History and below [facility] Medical History Hx of LEEP (loop electrosurgical excision procedure) of cervix complicating ?O34.40 - Maternal care for other abnormalities of cervix, unspecified trimester (ICD-10) ?Z98.890 - Other specified postprocedural states (ICD-10) Genital herpes (01/02/03) ?A60.00 - Herpesviral infection of urogenital system, unspecified (ICD-10) SVT (supraventricular tachycardia) ?I47.1 - Supraventricular tachycardia (ICD-10) Delivery normal (03/19/12) ?O80 - Encounter for full-term uncomplicated delivery (ICD-10) Surgical History Hx of wisdom tooth extraction ?K08.409 - Partial loss of teeth, unspecified cause, unspecified class (ICD-10) Family History Mother Bipolar 1 disorder Social History Smoking Status: Never smoker Do you use any of these nicotine containing products: None Second hand tobacco smoke exposure: No How often do you have a drink containing alcohol: never How often do you have six or more drinks on one occasion: Never AUDIT-C Alcohol total score: 0 Non-prescribed substance use: denies use Caffeine: Yes service: No Exam Narrative: Exam Narrative: Well-nourished well-developed patient in no acute distress. Alert and oriented. Answers questions appropriately. Mood and affect are appropriate. Thoughts are goal oriented and rational. No tangential or magical thinking noted. Patient speaks in full sentences without needing to catch her breath. HEENT: Normocephalic atraumatic. He delete that Extraocular muscles are intact. Conjunctivae are moist without any icterus noted. Extremities: Patient has a 2 mm laceration at the tip of the right pointer finger, not actively bleeding. Not very deep. Const: Vital Signs, click to edit/add: Vital Signs - 24 hr 08/14/24 10:07 Temperature 96.4 F L Pulse Rate [Pulse Oximeter] 75 Respiratory Rate 18 Blood Pressure [Le ft Upper Arm] 120/77 Pulse Oximetry 98 Oxygen Delivery Me thod Room Air Course Course ED Course: Wound was cleaned. No evidence of foreign body visualized. Dressing applied. Vital Signs Vital signs: Initial Vital Signs Temperature 96.4 F L 08/14/24 10:07 Temperature Source Temporal Artery Scan 08/14/24 10:07 Pulse Rate 75 08/14/24 10:07 Respiratory Rate 18 08/14/24 10:07 Blood Pressure 120/77 08/14/24 10:07 Blood Pressure Mean 91 08/14/24 10:07 Blood Pressure Position Sitting 08/14/24 10:07 Pulse Oximetry 98 08/14/24 10:07 Oxygen Delivery Method Room Air 08/14/24 10:07 Vital Signs Temperature 96.4 F L 08/14/24 10:07 Pulse Rate 75 08/14/24 10:07 Respiratory Rate 18 08/14/24 10:07 Blood Pressure 120/77 08/14/24 10:07 Pulse Oximetry 98 08/14/24 10:07 Oxygen Delivery Method Room Air 08/14/24 10:07 Temperature 96.4 F L 08/14/24 10:07 Pulse Rate 75 08/14/24 10:07 Respiratory Rate 18 08/14/24 10:07 Blood Pressure 120/77 08/14/24 10:07 Pulse Oximetry 98 08/14/24 10:07 Oxygen Delivery Method Room Air 08/14/24 10:07 Medical Decision Making MDM Narrative Medical decision making narrative: 44-year-old female with lacerations of the finger - not large enough for him enough to require suturing. Discharge Plan Discharge Clinical Impression: Laceration Patient Disposition: Home, Self-Care Condition: Stable Additional Instructions: Keep wound clean, dry and covered. Okay to shower like you normally would. Watch for signs and symptoms of infection including increasing redness of the area, purulent drainage, or fever. If this occurs follow-up right away with your doctor or return to the ER. Prescriptions: No Action sulfacetamide sodium-sulfur 10-5 % (w/w) cream 1 applic topical .PRN azelaic acid 15 % gel 1 applic topical DAILY albuterol sulfate 90 mcg/actuation HFA aerosol inhaler 2 inh inhalation Q4H PRN azelastine 137 mcg (0.1 %) aerosol,spray 1 spray intranasal Q12H Patient Comments: [NO ORIGINAL SIG] propranolol 20 mg tablet 10 mg PO ONCE PRN Patient Comments: was supposed to take prior to procedure per vocational counselor, but patient did not. Last took in Sep 2022. fluticasone propionate 50 mcg/actuation spray,suspension 1 spray intranasal DAILY PRN Rx Instructions: administer into each nostril Follow Up/Referrals: Alysia Longoria MD [Primary Care Provider] - Stand Alone Forms: [facility] Info Instructions
== END 2024-08-14 11:50 | disposition home or self-care (01) ==
LOC: ED 10:57
PROVIDERS: Emergency Provider Family Medicine; PCP Family Medicine
DX: S61.210A Laceration without foreign body of right index finger without damage to nail, initial encounter (principal); W25.XXXA Contact with sharp glass, initial encounter; Y93.G1 Activity, food preparation and clean up
CPT/HCPCS: 99282; 99283

== ENCOUNTER 2024-09-12 12:17 | Emergency (ER) | payer OTHER, SELFPAY ==
[2024-09-12 12:30] VITALS: BP 137/80
[2024-09-12 12:31] VITALS: BP 144/83
--- OUTSIDE RECORDS SUMMARY | 2024-09-12 12:45 | XMS_ITS | Clinical Summary ---
Author Organization [facility] Address [address] [place] [address] Care Team Providers Care Business Editor Name Role Phone Unavailable Primary Care Provider Unavailabl e Source Comments Patient records contain information from all sites at [facility]. For routine questions regarding patient records, call [phone] during business hours, M-F 8:00 AM - 5:00 PM Central Time. Record requests for emergency care only can be directed to [phone] at any time.[facility] Allergies Active Allergy Reactions Criticality Noted Date Comments Doxycycline Rash 01/02/2003 rash rash Tetracycline Rash Low 04/14/2022 Medications albuterol 90 mcg/actuation inhaler INHALE 2 INHALATIONS BY MOUTH EVERY 4 TO 6 HOURS NEEDED 2 Active sulfacetamide sodium-sulfur 10-5 % (w/w) cream APPLY TOPICALLY TO ACNE LESIONS DAILY 2 Active loratadine (CLARITIN) 10 mg tablet Take 1 tablet by mouth daily. 9 Active azelastine (ASTELIN) 137 mcg/spray (0.1 %) nasal spray INSTILL 1 SPRAY IN EACH NOSTRIL TWICE DAILY NEEDED. USE WITH FLONASE 2 Active cyclobenzaprine (FLEXERIL) 5 mg tablet 3 Active azelaic acid (FINACEA) 15 % gel APPLY EXTERNALLY TO FACE DAILY 3 Active propranoloL (INDERAL) 20 mg tablet Take 10 mg by mouth as needed. Active Social History Tobacco Use Types Packs/Day Years Used Date Smoking Tobacco: Never Assessed Nutrition Answer Date Recorded Nutrition: EVOO Fat Source Unknown 11/21 Nutrition: Servings of Fruits/Vegetables per Day Not on file 11/21/2022 Dental Answer Date Recorded Dental: Regular Dentist Unknown 11/22/19 23 Comments Unknown Sex and Gender Information Value Date Recorded Sex Assigned at Not on file Legal Sex Female 4:47 PM [employer] Gender Identity Not on file Sexual Orientation Not on file Last Filed Vital Signs Vital Sign Reading Time Taken Comments Blood Pressure 126/74 11/29/2022 11:28 AM CDT Pulse - - Temperature - - Respiratory Rate - - Oxygen Saturation - - Inhaled Oxygen Concentration - - Weight 80.6 kg (177 lb 11.1 oz) 023 11:28 AM CDT Height 165 cm (5' 4.96) 11/29/2022 11: 28 AM CDT Body Mass Index 29.6 11/29/2022 11:28 AM CDT Plan of Treatment Health Maintenance Due Date Last Done Comments CT Colonography 1978 Cologuard 1978 Colonoscopy 1978 Colorectal Cancer Screening 1978 FIT 1978 HIV Screening 1978 Hepatitis C Screening 1978 Mammogram 1978 Lipid (Cholesterol) Screening 05/25/2023 05/25/2018 Depression Screening (Annual PHQ-2) 08/28/2023 Fasting Glucose for Diabetes Screening 10/08/2023 10/08/2020, 07/20/2018, 05/25/2018 COVID-19 Vaccine ( - season) 2024 09/14/2021, 03/04/2021, 12/12/2020 Influenza Vaccine (#1) 2024 , 08/06/2021, 05/20/2020, Additional history exists Cervical/Vaginal Cancer Screening 09/09/2025 09/09/2022 DTaP,Tdap,and Td Vaccines (4 - Td or Tdap) 08/22/2029 08/22/2019, 08/22/2019, 03/27/2000, Additional history exists Hepatitis B Vaccines Completed 07/29/2013, 12/20/2012, 10/30/2012 IPV Vaccines Aged Out No longer eligi ble based on patient's age to complete this topic Pneumococcal vaccine (0-49 years) Aged Out No longer eligible based on patient's age to complete this topic Insurance [facility]
--- OUTSIDE RECORDS SUMMARY | 2024-09-12 12:45 | XMS_ITS | Clinical Summary ---
Author Organization [facility] Address [address] [place] [id number] Care Team Providers Care Rn Placement Name Role Phone Mae [facility] Primary Care Provider Gina Fatima MD Unavailable [phone] Allergies Active Allergy Reactions Criticality Noted Date Comments Doxycycline 01/02/2003 rash Medications * This document contains information received from the source organization and may not represent a complete record from that organization. propranolol (INDERAL) 20 MG tablet TAKE 1/2 TABLET BY MOUTH ONCE DAILY IF NEEDED FOR HIGH HR OR SVT Active Active Problems Problem Noted Date Diagnosed Date Routine general medical exam ination at a health care facility 12/23/2003 Genital herpes 01/02/2003 Overview (05/28/2015): Problem list name updated by automated process. Provider to review Papanicolaou smear of cervix with atypical squamous cells cannot exclude high grade squamous intraepithelial lesion (ASC-H) 01/02/2003 Other acne 01/02/2003 Immunizations Name Administration Dates Next Due TD,PF 7+ (Tenivac) 03/27/2000 Family History Medical History Relation Comments Heart Disease Father cad, htn Hypertension Father Lipids Father Respiratory Maternal Grandfather copd Depression Maternal Grandmother young suicide, prescription drugs, drug seeker. Depression Mother 49 suicide, alcoholic Cancer - colorectal Paternal Grandfather la te 80's Relation Status Comments Father Maternal Grandfather Maternal Grandmother Mother Paternal Grandfather Social History Tobacco Use Types Packs/Day Years Used Date Smoking Tobacco: Former Cigarettes 0.5 10 0 04/28/1993 - 04/28/2003 Smokeless Tobacco: Never Alcohol Use Standard Drinks/Week Comments Yes 1.7 (1 standard drink = 0.6 oz p ure alcohol) occasional drinks Adolescent Education Answer Date Record ed Getting School Help Needed Not on file 05/28 Comments No Sex and Gender Information Value Date Recorded Sex Assigned at Not on file 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 Gender Identity Not on file Sexual Orientation Not on file Last Filed Vital Signs Vital Sign Reading Time Taken Comments Blood Pressure 122/87 06/06/2016 9:07 AM CDT Pulse 105 06/06/2016 9:08 AM CDT Temperature 36.6 C (97.9 F) 06/06/2016 9:07 AM CDT Respiratory Rate 18 06/06/2016 9:07 AM CDT Oxygen Saturation 100% 06/06/2016 10:30 AM CDT Inhaled Oxygen Concentration - - Weight 61.7 kg (136 lb) 07/14/2004 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 Height - - Body Mass Index - - Plan of Treatment Scheduled Procedures Name Priority Associated Diagnoses Date/Ti me SEPTOPLASTY, NOSE Nasal obstruction Deviated nasal septum Health Maintenance Due Date Last Done Comments ADVANCE CARE PLANNING 1978 ANNUAL REVIEW OF HM ORDERS 1978 CT COLONOGRAPHY 1978 FIT 1978 FLEX SIG 1978 sDNA (Cologuard) 1978 HIV SCREENING 1993 HEPATITIS C SCREENING 02/21/1996 LIPID 2018 GLUCOSE 06/06/2019 06/06/2016, 01/26, 06/21/2002 PHQ-2 (once per calendar year) 2023 COVID-19 Vaccine ( season) 2024 09/14/2021, 09/14/2021, 03/04/2021, Additional history exists INFLUENZA VACCINE (#1) 2024 , 08/06/2021, 05/20/2020, Additional history exists YEARLY PREVENTIVE VISIT 05/18/2024 05/18/20 23, 08/06/2021, 12/23/2003 MAMMO SCREENING 06/30/2025 06/30/2023, 1110/2022, 06/10/2022, Additional history exists PAP 03/18/2027 03/18/2024, 02/26, 09/09/2022, Additional history exists COLONOSCOPY 02/07/2033 02/07/2023 COLORECTAL CANCER SCREENING 02/07/2033 DTAP/TDAP/TD IMMUNIZATION (3 - Td or Tdap) 03/19/2034 03/19/2024, 08/22/2019, 03/27/2000, Additional history exists RSV VACCINE (1 - 1-dose 75+ series) 2053 HEPATITIS B IMMUNIZATION Completed 013, 12/20/2012, 10/30/2012 HPV IMMUNIZATION Completed 01/23/2024, 12/2023, 08/15/2023 MENINGITIS IMMUNIZATION Aged Out No l onger eligible based on patient's age to complete this topic Pneumococcal Vaccine: Pediatrics (0 to 5 Years) and At-Risk Patients (6 to 49 Years) Aged Out No longer eligible based on patient's age to complete this topic RSV MONOCLONAL ANTIBODY Aged Out No l onger eligible based on patient's age to complete this topic Procedures Procedure Name Priority Date/Time Associated Diagnosis Comments BASIC METABOLIC PANEL STAT 06/06/2016 10:35 AM CDT HCL PAP THIN LAYER SCREEN Routine 12/23/2003 12:00 AM CDT Gynecologic Examination from Last 3 Months or Most Recently Relevant to Health Maintenance Results * (ABNORMAL) Basic metabolic panel (06/06/2016 10:35 AM CDT) Sodium 138 133 - 144 mmol/L [facility] Potassium 4.0 3.4 - 5.3 mmol/L [facility] Chloride 107 94 - 109 mmol/L [facility] Carbon Dioxide 25 20 - 32 mmol/L [facility] Anion Gap 6 3 - 14 mmol/L [facility] Glucose 92 70 - 99 mg/dL [facility] Urea Nitrogen 9 7 - 30 mg/dL [facility] Creatinine 0.82 0.52 - 1.04 mg/dL [facility] GFR Estimate 78 >60 mL/min/1. 7m2 [facility] Comment:Non GFR Calc GFR Estimate If Black >90 GFR Calc >60 mL/min/1. 7m2 [facility] Calcium 8.4(L) 8.5 - 10.1 mg/dL [facility] Blood specimen (specimen) 06/06/2016 10:35 AM CDT 06/06/2016 10:39 AM CDT us Ernie Holden MD LAB - BLOOD ORDERABLES Fi nal Result Performing Organization Address City/[facility]/ZIP Co de Phone Number [facility] [address] [place] [address], [facility] [phone] * A THIN LAYER PAP SCREEN (12/23/2003 12:00 AM CDT) Copath Report Patient Name: RAMON GRACIA MR#: [id number] Specimen #: [id number] Collected: 12/23/03 Received: 12/24/03 Reported: 12/26/03 09:05 Ordering Phy(s): MEL KATHLEEN SPECIMEN/STAIN PROCESS: Pap thin layer prep screening Pap-Cyto x 1, Reflex HPV x 1 SOURCE: Cervical, endocervical Pap thin layer prep screening SPECIMEN ADEQUACY: Satisfactory for evaluation. -Transitional zone component present. CYTOLOGIC INTERPRETATION: Negative for Intraepithelial Lesion or Malignancy Organism(s): -Shift in isaac suggestive of bacterial vaginosis. Electronically signed out by: JOSE Borjas (ASCP) Processed and screened at [facility] CLINICAL HISTORY: LMP: 11/26/03 Previous normal pap, COPATH 12/23/2003 12/24/2003 10: 12 AM CDT us Mel Kathleen [employer] POLISH[employer] [facility] LAB[facility] Final Result COPATH from Last 3 Months or Most Recently Relevant to Health Maintenance Insurance [facility] [employer] [facility] [employer] [facility] [place] [address] Advance Directives For more information, please contact: [phone] * No Code Status (Latest Code Status on File) Date Activated Date Inactivated Comments 12/08/2003 8:46 AM 12/08/2003 8:46 AM Care Teams Rn Placement Relationship Specialty Start Date End Date [address] [address] PCP - General 06/06/16 Gina Fatima MD [place] [address], [address] [place] [address] Assigned Surgical Provider 10/20/23
--- OUTSIDE RECORDS SUMMARY | 2024-09-12 12:45 | XMS_ITS | Clinical Summary ---
Author Organization [facility] [facility] Address [place], [place] [address] Care Team Providers Care Athletic Trainer Name Role Phone Alysia Longoria MD Primary Care Provider Allergies Active Allergy Reactions Criticality Noted Date Comments Doxycycline Rash Low 01/02/2003 rash rash rash Tetracycline Rash Low 04/14/2022 Medications fluticasone (50 mcg per actuation) nasal solution (FLONASE) Inhale 1 Orwell into both nostrils once daily. 1 Bottle 0 6 Active azelaic acid (FINACEA) 15 % topical gel APPLY EXTERNALLY TO FACE DAILY 1 Active Sulfacetamide Sodium-Sulfur 10-5 % (w/w) topical cream APPLY TOPICALLY TO ACNE LESIONS DAILY 2 Active azelastine 137 mcg/actuation (ASTELIN) nasal sprayIndications :Seasonal allergies INSTILL 1 SPRAY IN EACH NOSTRIL TWICE DAILY NEEDED. USE WITH FLONASE 30 mL 3 3 Active albuterol HFA (PRO-AIR; VENTOLIN; PROVENTIL) 90 mcg/actuation inhalerIndicatio ns:Mild intermittent asthma without complication INHALE 2 INHALATIONS BY MOUTH EVERY 4 TO 6 HOURS NEEDED 6.7 g 4 Active propranoloL (INDERAL) 20 mg tabletIndication s:SVT (supraventricula r tachycardia) (HC) Take 0.5 tablets (10mg) by mouth once daily if needed for high HR or SVT NEEDS OFFICE VISIT FOR FURTHER REFILLS. CALL TO SCHEDULE. 5 Tablet Active Active Problems Problem Noted Date Diagnosed Date Mild intermittent asthma without complication Methylenetetrahydrofolate reductase (MTHFR) defi ciency 04/24/2023 Hypothyroid 01/31/2023 Pulmonary nodules 10/11/2022 Overview (10/11/2022): Bilateral pulmonary nodules seen 09/2022, recheck CT in 3-6 months. SVT (supraventricular tachycardia) 04/20/2022 Adjustment disorder with mixed anxiety and depre ssed mood 07/07/2014 Unspecified hypothyroidism 01/06/2011 Family history of ischemic heart disease 006 Dyspareunia 06/19/2006 [facility] 12/23/2003 Genital herpes 01/02/2003 Overview (10/13/2020): Overview: Problem list name updated by automated process. 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 Overview (08/27/2021): 1996 ASCUS favor dysplasia 1997 ASCUS favor dysplasia 01/02/03 ASC-H 07/2011 NIL/HPV negative 04/2018 NIL/HPV negative 08/06/21 LSIL/HPV+, 16+, 18 negative Plan:Colposcopy Resolved Problems Problem Noted Date Diagnosed Date Resolved Date Papanicolaou smear of cervix with atypical squamous cells cannot exclude high grade squamous intraepithelial lesion (ASC-H) 01/02/2003 08/27/2021 Encounters Date Type Department Care Team Description 08/16/2024 Telephone [facility] [address] [place] [address] Tammy Pisano MD Appointment Request (glass stuck in finger) 08/16/2024 Nurse Triage [facility] [address] [place] [address] Alysia Longoria MD Foreign Body (A piece of glass came out of finger) 08/14/2024 Nurse Triage [facility] [address] [facility] [place] [address] Alysia Longoria MD Finger Injury 08/07/2024 4:30 PM SKIVER HAND Office Visit [facility] [address] [place] [address] Alysia Longoria MD Neck Pain/problem (Started this summer, was going to the Chiropractor and it was not helping. Maybe wondering if a referral to PT. Hurts all the time but when she turns her head it hurt more and on the left side not matter which way she turns her head. It is like a stiff hurt. NKI) 08/07/2024 Travel 07/22/2024 11:00 AM SKIVER HAND - 07/22/2024 11:59 PM SKIVER HAND Hospital Encounter [facility] [address] [place] [address] Breast pain, right 07/22/2024 Travel 07/19/2024 10:45 AM SKIVER HAND Office Visit [facility] [address] [place] [address] Tammy Pisano MD Breast Problem (Right side felt sharp pain and shooting up, last mammo stated dense, flu shot on monday) 07/19/2024 Travel from Last 3 Months Immunizations Name Administration Dates Next Due AMB Influenza, IIV4 PF (=>6 mos Flulaval,Fluzone Fluarix)(Flu Clinic Only) 05/24/2016 COVID-19 vaccine (Pfizer-Bio NTech 30mcg/0.3mL) 12YO+ ISABEL-SUCROSE PF, MDV 09/14/2021 COVID-19 vaccine (CodeNgo-Bio NTech 30mcg/0.3mL) PF, MDV 09/14/2021,03/04/2021,12/12/2020 HPV 9 (Gardasil 9) 01/23/2024,10/31/2023, 023 Hepatitis B (Adult) 07/29/2013,12/20/2012,2012 Influenza A (H1N1), Inactivated 08/14/2009 Influenza, IIV3 (Age 6-35 mos) 05/17/2012,2009 Influenza, IIV3 (Age >=3 years) 05/07/2013,04/30 Influenza, IIV4 07/18/2022, 1,05/20/2020,2018,05/25/2018,05/08/2017,06/12/2015,1 ,05/24/2010,08/14/2009, 009 Influenza, IIV4 (=>6mos) MDV 05/08/2017 Rabavert 05/29/2023, 3,05/18/2023,2022 Td (Age >=7 Years) 08/22/2019 Td, Preservative Free (age > = 7 Years) 08/22/2019 Tdap 03/19/2024,03/27/2000 Family History Medical History Relation Name Comments Coronary artery disease Father Other Father Hypertension Alcohol/Drug Mother Alchoholism Other Mother from pulmo nary embolism in hospital age 45. Psychiatric illness Mother depressi on Cancer Paternal Grandfather Cancer-colon Paternal Grandfather No Known Problems Sister 1 Stephania Anesthesia Problem No Family History Cancer-ovarian No Family History Diabetes No Family History Heart attack No Family History Relation Name Status Comments Father Alive Maternal Aunt Maternal Grandfather Alive Maternal Grandmother (Age 50) Mother (Age 45) Paternal Grandfather Paternal Grandmother Sister 1 Stephania Alive Sister 2 Manolo Alive Son Alive Social History Tobacco Use Types Packs/Day Years Used Date Smoking Tobacco: Former Cigarettes 1.5 15 0 04/17/1992 - 04/17/2007 Smokeless Tobacco: Never Tobacco Cessation:Counseling Given: Yes Alcohol Use Standard Drinks/Week Comments Not Currently 0 (1 standard drink = 0.6 oz pur e alcohol) C Utilities Answer Date Recorded Do you have trouble paying f or utilities (for example, heat, electricity, water, phone)? Yes 03/19/2024 PHQ-2 Answer Date Recorded PHQ-2 TOTAL SCORE 0 05/18/2023 Social Connections Answer Date Recorded Do you often feel lonely or isolated from those around you? 0 03/19/2024 Financial Resource Strain Answer Date R ecorded Difficulty of Paying Living Expenses 3 03/19/2024 Difficulty of Paying Living Expenses Not on file 03/19/2024 Food Insecurity Answer Date Recorded Do you worry your food will run out before you are able to buy more? 1 03/19/2024 Transportation Needs Answer Date Record ed Does lack of transportation keep you from medica l appointments? 1 03/19/2024 Does lack of transportation keep you from work, meetings or getting things that you need? 1 03/19/2024 Housing Stability Answer Date Recorded What is your housing situation today? 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 Not on file Not on file Not on gladys e Obstetrics History Para Term AB IAB SAB Ectopic Multiple Livin g Live Births 4 3 3 1 1 3 Date Outcome GA Total Labor Labor/2nd/3rd Weight Sex Type Anes PTL Jazmin A1 A5 Name Clin Term Term Term SAB SPONTANE O US Comments 3 x SVDs Last Filed Vital Signs Vital Sign Reading Time Taken Comments Blood Pressure 105/72 08/07/2024 4:42 PM SKIVER HAND Pulse 73 08/07/2024 4:42 PM SKIVER HAND Temperature 37.1 C (98.7 F) 07/19/2024 10:51 AM SKIVER HAND Respiratory Rate 16 10/17/2023 7:36 AM SKIVER HAND Oxygen Saturation 99% 08/07/2024 4:42 PM SKIVER HAND Inhaled Oxygen Concentration - - Weight 80.1 kg (176 lb 9.6 oz) 08/07/2024 4:42 P M SKIVER HAND Height 166.4 cm (5' 5.5) 08/07/2024 4:42 PM SKIVER HAND Body Mass Index 28.94 08/07/2024 4:42 PM SKIVER HAND Plan of Treatment Health Maintenance Due Date Last Done Comments Pneumococcal series for age 6-49 (1 of 2 - PCV) 1997 COVID-19 vaccine series ( season) 2024 09/14/2021, 09/14/2021, 03/04/2021, Additional history exists Influenza for age 9-49 04/28/2024 , 08/06/2021, 05/20/2020, Additional history exists Depression screening for age 12+ 05/18/2024 05/18/2023, 12/02/2022, 08/06/2021, Additional history exists Pap test for age 21-65 09/18/2024 , 03/18/2024, 09/09/2022, Additional history exists Mammogram for age 45-75 07/22/2025 07/22/20 24, 06/30/2023, 06/10/2022, Additional history exists BMI (ht and wt on same day) for age 18+ 08/07/2025 08/07/2024, 10/17/2023, 05/18/2023, Additional history exists Lipids for age 45-75 05/18/2028 05/18/2023, 05/25/2018, 06/26/2006 Colonoscopy through age 75 02/07/203302/07, 02/07/2023, 02/07/2023 Tetanus booster 03/19/2034 03/19/2024, 07/29, 08/22/2019, Additional history exists Hepatitis C screening for ag e 18-79 Completed 01/27/2015 HIV for age 15-65 Completed 08/06/2021, 01/27/2015 Tdap Completed 03/19/2024, 08/2008 (Completed outside of [facility]), 03/27/2000 Procedures Procedure Name Priority Date/Time Associated Diagnosis Comments XR MAMMO TINY BILAT DIAG Routine 07/22/2024 11:20 AM SKIVER HAND Breast pain, right APARTMENT COMMUNITY MANAGER THIN PREP PAP SCREEN IMAGED Routine 03/18/2024 10:00 AM CDT LIPID PANEL W REFLEX MEASURED LDL Routine 05/18/2023 8:30 AM CDT Routine general medical examination at a health care facility COLONOSCOPY SCREENING Routine 02/07/2023 10:30 AM CDT Family history of colonic polyps ANTI HIV 1/2 Routine 08/06/2021 9:52 AM SKIVER HAND Routine screening for STI (sexually transmitted infection) ANTI HCV Routine 01/27/2015 11:07 AM CDT Screen for STD (sexually transmitted disease) from Last 3 Months or Most Recently Relevant to Health Maintenance Results * XR MAMMO TINY BILAT DIAG (07/22/2024 11:20 AM SKIVER HAND) Anatomical Region Laterality Modality BREASTS, Breast Left, Breast Right Bilateral Mammography, Other 07/22/2024 11:3 0 AM SKIVER HAND Impressions 07/22/2024 11:57 AM SKIVER HAND 1. No evidence of malignancy. No findings to explain the patient's current symptoms of RIGHT breast pain. 2. Recommend annual screening mammography. Results and recommendations were discussed with the patient at the time of the exam. BI-RADS Category 1: Negative Dictated by: Moises Hernandez MD @07/22/2024 11:30:09 AM/natalie PATIENTS: You will also receive a letter with your examination results in an easy to read format. If you have questions about your results, please contact your referring provider. Narrative 07/22/2024 11:57 AM SKIVER HAND For Patients: As a result of the Cures Act, medical imaging exams and procedure reports are released immediately into your electronic medical record. You may view this report before your referring provider. If you have questions, please contact your health care provider. DIGITAL DIAGNOSTIC BILATERAL MAMMOGRAM USING TOMOSYNTHESIS AND COMPUTER-AIDED DETECTION, 07/22/2024 INDICATION: Lateral RIGHT breast pain x1 week. TECHNIQUE: Diagnostic BILATERAL mammogram. Tomosynthesis and computer-aided detection utilized. COMPARISON: 06/30/2023, 06/10/2022 and 04/05/2021. FINDINGS: The breasts are heterogeneously dense which may obscure small masses. No suspicious mass, architectural distortion or malignant calcification noted in either breast. us Tammy Pisano MD MAMMO Final Resul t * (ABNORMAL) APARTMENT COMMUNITY MANAGER THIN PREP PAP SCREEN IMAGED (03/18/2024 10:00 AM CDT) Case Report Gynecologic Cytology Report Case: [id number] Authorizing Provider: Heidy De Dios MD Collected: 03/18/2024 1000 Ordering Location: [facility] Received: 03/19/2024 1057 First Screen: Manuela Paulson Pathologist: Mihaela Nelson MD Specimen: APARTMENT COMMUNITY MANAGER ThinPrep Vial Screening, Vaginal 03/29/2024 8:35 AM CDT [facility] INTERPRETATION/ RESULT ATYPICAL SQUAMOUS CELLS OF UNDETERMINED SIGNIFICANCE (ASCUS)(A) (none) 03/29/2024 8:35 AM CDT [facility] IMEN ADEQUACY Satisfactory for evaluation 03/29/2024 8:35 AM CDT [facility] HPV REQUEST HPV and PAP 03/29/2024 8:35 AM CDT [facility] Date of LMP 03/29/2024 8:35 AM CDT [facility] Comment:N/A Last Pap Date 09/09/2022 03/29/2024 8:35 AM CDT [facility] Last Pap Result [facility] 8:35 AM CDT [facility] Abnormal Pap or [place] Bx in last 5 years Yes 03/29/2024 8:35 AM CDT [facility] Menstrual Status Hysterectomy-ce rvix absent 03/29/2024 8:35 AM CDT [facility] [place] Bx Done Today No 03/29/2024 8:35 AM CDT [facility] Additional Information VAGINAL CUFF 03/29/2024 8:35 AM CDT [facility] Comment: Interpreted at [facility] Laboratory - [address], [place] [address] Automated Review Successful 03/29/2024 8:35 AM CDT [facility] Comment:Specimen processed s uccessfully by automated insulation sprayer device, ThinPrep Imaging System, [employer]ed [employer] ANCILLARY TESTING APARTMENT COMMUNITY MANAGER HPV Ordered, Please see separate report 03/29/2024 8:35 AM CDT [facility] Note The pap test is a screening technique, not a diagnostic procedure. It is used primarily to screen for squamous cancers and precursor lesions. Published studies have shown that it is subject to both false negative and false positive results. The pap test should not be used as the sole means to diagnose or exclude pre-malignant and malignant lesions. 03/29/2024 8:35 AM CDT [facility] Other VAGINAL SWAB / Unknown 03/18/2024 10:00 AM CDT 03/19/2024 10:57 AM CDT Heidy De Dios MD PATHOLOGY/CYTOLOGY Final Result [facility] [address] [place] [address], [place] * (ABNORMAL) LIPID PANEL W REFLEX MEASURED LDL (05/18/2023 8:30 AM CDT) CHOLESTEROL,TOTAL 186 100 - 199 mg/dL 05/18/2023 5:03 PM CDT [facility] Comment: Cholesterol, Total Reference Ranges Desirable <200 mg/dL Borderline 200-239 mg/dL High >=240 mg/dL TRIGLYCERIDES 161(H) <150 mg/dL 05/18/2023 5:03 PM CDT [facility] HDL CHOLESTEROL 35(L) >40 mg/dL 5:03 PM CDT [facility] NON-HDL CHOLESTEROL 151(H) <145 mg/dl 05/18/2023 5:03 PM CDT [facility] CHOL/HDL RATIO 5.31(H) <4.50 05/18/2023 5:03 PM CDT [facility] LDL CHOLESTEROL 119 <=130 mg/dL 05/18/2023 5:03 PM CDT [facility] VLDL CHOLESTEROL 32(H) <=30 mg/dL 05/18/2023 5:03 PM CDT [facility] PROVIDER ORDERED STATUS RANDOM 05/18/2023 5:03 PM CDT [facility] Blood BLOOD SPECIMEN / Unknown Venipuncture / Unknown 05/18/2023 8:30 AM CDT 05/18/2023 8:31 AM CDT us Hansel Germain MD CHEMISTRY Final Re sult [facility] [address] [place] [address], [place] * COLONOSCOPY (02/07/2023 10:30 AM CDT) 02/07/2023 10:3 0 AM CDT Narrative Transcriptions Robbie Mckay MD - 02/07/2023 11:34 AM CDT Patient Name: Jeanine Barahona Procedure Date: 02/07/2023 Gender: Female Date of : 1980 Admit Type: Outpatient Procedure: Colonoscopy Proceduralist: Robbie Mckay MD , Naima King, RN(Nurse), Nnanette Brand (Nurse) Referring MD: Alysia Longoria Indications/Pre-Op Diagnosis: Colon cancer screening in patient atincreased risk: Family history of 1st-degree relative with colon polyps, This is the patient'sfirst colonoscopy Medications: Fentanyl micrograms IV, Midazolam 4 mg IV,The level of sedation administered wasmoderate Procedure Description: The patient had risks, benefits and alternatives explained to andgave informed consent. The patient had a stable cardiopulmonary status and judged an adequate candidate for conscious sedation. The [id number] was passed through the anus and advanced to 4 cm into the ileum. The colonoscopy was performed without difficulty. The patient tolerated the procedure well. The quality of the bowel preparationwas good. The terminal ileum, ileocecal valve, appendiceal orifice, and rectum were photographed. Complications: No immediate complications. Estimated Blood Loss & Specimen: Estimated blood loss: none. Estimated blood loss: none. Specimen collected - Yes and sent to Laboratory Findings: Skin tags were found on perianal exam. The terminal ileum appeared normal. A 3 mm polyp was found in the rectum. The polyp was sessile. Thepolyp was removed with a cold snare. Resection and retrieval werecomplete. The exam was otherwise without abnormality on direct and retroflexion views. Impressions/Post-Op Diagnosis: - Perianal skin tags found on perianal exam. - The examined portion of the ileum was normal. - One 3 mm polyp in the rectum, removed with a cold snare. Resectedand retrieved. - The examination was otherwise normal on direct and retroflexionviews. Recommendation: - Patient has a contact number available for emergencies. The signsand symptoms of potential delayed complications were discussed with the patient. Return to normal activities tomorrow. Written discharge instructions were provided to the patient. - Resume previous diet. - Continue present medications. - Repeat colonoscopy in 5 years for screening purposes if the patient has a first degree relative who is less than 60 years of age with a colorectal cancer or with an advanced adenomatous polyp (adenomagreater than 1 cm, adenoma with tubulovillous/villous histology, adenoma with high grade dysplasia) otherwise based on pathology. Moderate Sedation: A time out was performed before the procedure. Moderate (conscious) sedation was administered by the endoscopy nurse and supervised bythe endoscopist. The following parameters were monitored: oxygensaturation, heart rate, blood pressure, EKG, CO2, respiratory rate, adequacy of pulmonary ventilation and reponse to care. Please refer to the patient's medical record flowsheets and nursing notes for moderate sedation details. Total physician intraservice time was 17 minutes. Robbie Mckay MD 02/07/2023 11:34:14 AM This report has been signed electronically. Note Initiated On: 02/07/2023 10:30 AM Procedure Code(s): --- Professional --- 30516, Colonoscopy, flexible; with removalof tumor(s), polyp(s), or other lesion(s) bysnare technique Diagnosis Code(s): --- Professional --- Z83.71, Family history of colonic polyps D12.8, Benign neoplasm of rectum K64.4, Residual hemorrhoidal skin tags CPT copyright 2021 [employer]. All rights reserved. The codes documented in this report are preliminary and upon medical biller/coder reviewmay be revised to meet current compliance requirements. Scope In: 11:10:48 AM Scope Withdrawal Time 0 hours 9 minutes 34 seconds Scope Out: 11:24:27 AM us Robbie Mckay MD PROCEDURE ORD Final Res ult * ANTI HIV 1/2 (08/06/2021 9:52 AM SKIVER HAND) HIV-1/HIV-2 ANTIBODY Non-Reacti ve Non-Reacti ve 08/06/2021 6:04 PM SKIVER HAND [facility] Comment:HIV-1 p24 and HIV-1/ HIV-2 Ab not detected. Blood BLOOD SPECIMEN / Unknown Venipuncture / Unknown 08/06/2021 9:52 AM SKIVER HAND 08/06/2021 9:54 AM SKIVER HAND us Tammy Pisano MD SEND OUTS Final Resul t [facility] [address] [place] [address], * ANTI HCV (01/27/2015 11:07 AM CDT) HEPATITIS C ANTIBODY Non-Reacti ve Non-Reacti ve 01/27/2015 5:37 PM CDT [facility] Blood specimen (specimen) BLOOD SPECIMEN / Unknown Venipuncture / Unknown 01/27/2015 11:07 AM CDT 01/27/2015 11:08 AM CDT Narrative [facility] - 01/27/2015 5:37 PM CDT Antibodies to HCV not detected; does not exclude the possibility of exposure to HCV. us Alysia Longoria MD SEND OUTS Final R esult [facility] [address] [place] [address], [place] from Last 3 Months or Most Recently Relevant to Health Maintenance Insurance [facility] Care Teams Athletic Trainer Relationship Specialty Start Date End Date Alysia Longoria MD [address] [place] [address] PCP - General Family Practice 10/30/12
--- OUTSIDE RECORDS SUMMARY | 2024-09-12 12:45 | XMS_ITS | Referral Summary ---
Author Organization [facility] Address [address] [place] [id number] Care Team Providers Care Enamel Sprayer Name Role Phone [facility] Primary Care Provider Gina Fatima MD Unavailable [phone] Allergies Active Allergy Reactions Criticality Noted [...] Dates Next Due TD,PF 7+ (Tenivac) 03/27/2000 Social History Tobacco Use Types Packs/Day Years [...] on file Legal Sex Female 3:29 AM MANAGER RAIL Gender Identity Not on file Sexual Orientation [...] 61.7 kg (136 lb) 07/14/2004 4:10 PM MANAGER RAIL Height - - Body Mass Index - - Plan of Treatment Scheduled Procedures Name Priority Associated Diagnoses Date/Ti me SEPTOPLASTY, NOSE Nasal obstruction Deviated nasal septum Procedures Procedure Name Priority Date/Time Associated Diagnosis Comments BASIC METABOLIC PANEL STAT 06/06/2016 10:35 AM CDT HCL PAP THIN LAYER SCREEN Routine 12/23/2003 12:00 AM CDT Gynecologic Examination from Last 3 Months or Most Recently Relevant to Health Maintenance Results * (ABNORMAL) Basic metabolic panel (06/06/2016 10:35 AM CDT) Sodium 138 133 - 144 mmol/L [facility] Potassium 4.0 3.4 - 5.3 mmol/L [facility] Chloride 107 94 - 109 mmol/L [facility] Carbon Dioxide 25 20 - 32 mmol/L [facility] Anion Gap 6 3 - 14 mmol/L [facility] Glucose 92 70 - 99 mg/dL [facility] Urea Nitrogen 9 7 - 30 mg/dL [facility] Creatinine 0.82 0.52 - 1.04 mg/dL [facility] GFR Estimate 78 >60 mL/min/1. 7m2 [facility] Comment:Non GFR Calc GFR Estimate If Black >90 GFR Calc >60 mL/min/1. 7m2 [facility] Calcium 8.4(L) 8.5 - 10.1 mg/dL [facility] Blood specimen (specimen) 06/06/2016 10:35 AM CDT 06/06/2016 10:39 AM CDT us Ernie Holden MD LAB - BLOOD ORDERABLES Fi nal Result [facility] [place] [address], [facility] [phone] * A THIN LAYER PAP SCREEN (12/23/2003 12:00 AM CDT) Copath Report Patient Name: RAMON GRACIA MR#: [id number] Specimen #: [id number] Collected: 12/23/03 Received: 12/24/03 Reported: 12/26/03 09:05 Ordering Phy(s): MEL KATHLEEN SPECIMEN/STAIN PROCESS: Pap thin layer prep screening Pap-Cyto x 1, Reflex HPV x 1 SOURCE: Cervical, endocervical Pap thin layer prep screening SPECIMEN ADEQUACY: Satisfactory for evaluation. -Transitional zone component present. CYTOLOGIC INTERPRETATION: Negative for Intraepithelial Lesion or Malignancy Organism(s): -Shift in isaac suggestive of bacterial vaginosis. Electronically signed out by: JSOE Borjas (ASCP) Processed and screened at [facility] CLINICAL HISTORY: LMP: 11/26/03 Previous normal pap, [facility] 12/23/2003 12/24/2003 10: 12 AM CDT us Mel Kathleen [facility] Final Result [facility] from Last 3 Months or Most Recently Relevant to Health Maintenance Insurance NONE (Work) [address] [place] [id number] [facility] [employer] NONE (Work) [address] [place] [id number] [facility] [employer] [address] [place] [address] [facility] [employer] [place] [phone] Advance Directives For more information, please contact: [phone] * No Code Status (Latest Code Status on File) Date Activated Date Inactivated Comments 12/08/2003 8:46 AM 12/08/2003 8:46 AM Care Teams Enamel Sprayer Relationship Specialty Start Date End Date Clinic, [address] [address] PCP - General 06/06/16 Gina Fatima MD [facility] [address], [address] [place] [address] Assigned Surgical Provider 10/20/23
--- OUTSIDE RECORDS SUMMARY | 2024-09-12 12:45 | XMS_ITS ---
Author Organization [facility] Address [address] [place] [address] Care Team Providers Care Scheduling Administrator Name Role Phone Unavailable Unavailable Unavailable Surgery Details Not on file Complications Check Surgery Details section. Procedure Estimated Blood Loss Check Surgery Details section. Procedure Findings Check Surgery Details section. Procedure Specimens Taken Check Surgery Details section.
--- OUTSIDE RECORDS SUMMARY | 2024-09-12 12:45 | XMS_ITS | Referral Summary ---
Author Organization [facility] Address [address] [place] [address] Care Team Providers Care Engine Lathe Operator Name Role Phone Unavailable Primary Care Provider Unavailabl e Source Comments Patient records contain information from all sites at [facility]. For routine questions regarding patient records, call [phone] during business hours, M-F 8:00 AM - 5:00 PM Central Time. Record requests for emergency care only can be directed to [phone] at any time.[facility] Allergies Active Allergy Reactions Criticality Noted Date [...] on file Legal Sex Female 4:47 PM PROCESS CONTROL TECH Gender Identity Not on file Sexual Orientation [...] 11/29/2022 11:28 AM CDT Plan of Treatment Not on file Insurance [facility]
[2024-09-12 12:46] VITALS: BP 121/80
[2024-09-12] MEDS: PROPRANOLOL 20 MG TABLET PO (12:46)
[2024-09-12 12:47] LABS: Basophils Absolute Auto 0.03 K/uL (0.00-0.30); Basophils Percent Auto 0.3 % (0.0-3.0); Hematocrit 40.6 % (33.0-51.0); Hemoglobin* 13.8 gm/dL (12.0-16.0); Immature Granulocytes Abs Auto 0.06 K/uL (0.00-0.30); Immature Granulocytes Pct Auto 0.6 %; Lymphocytes Absolute Auto 3.64 K/uL (0.90-2.90); Lymphocytes Percent Auto 35.3 % (20-44); Mean Corpuscular HGB Conc 34 gm/dL (32-36); Mean Corpuscular Hemoglobin 30 pg (26-34); Mean Corpuscular Volume 88 fL (80-100); Monocytes Percent Auto 11.5 % (0.0-11.0); Neutrophils Absolute Auto 5.29 K/uL (1.7-7.0); Neutrophils Percent Auto 51.3 % (42.0-72.0); Platelet Count* 311 K/uL (140-440); RDW Coefficient of Variation % 12.1 % (11.5-15.5); Red Blood Count 4.61 m/uL (4.00-5.20)
[2024-09-12 12:51] VITALS: PULSE 180; RESP 18; TEMP 36.7; O2SAT 98; BMI 29.1
[2024-09-12 12:52] LABS: Slide Review Reflex No
[2024-09-12 13:01] VITALS: BP 109/80; PULSE 94; RESP 16
--- NOTE | 2024-09-12 13:04 | ED.ARRPALP ---
HPI - Arrhythmia/Palpitations General Date Seen: 09/12/24 Chief Complaint: Arrhythmia/Palpitations Stated Complaint: SVT - Short of Breath Time Seen by Provider: 09/12/24 12:20 Source: patient Mode of arrival: ambulatory Limitations: no limitations History of Present Illness HPI narrative: Patient is a 44-year-old female presenting to emergency department for SVT. She states she has been dealing with SVT since she was 16 and sees Cardiology through [facility]. States she used to get this every few months but now only gets it yearly. Last occurrence was 1 year ago. She states she will feel her heart rate racing but she was concerned because this the 1st time she has had chest pain with it. She describes it as a crushing chest pain the last about 2 minutes. Due to that she called the triage line was told to come to the emergency department. She states the chest pain since resolved but she still feels like her heart is racing. States she typically takes her propanolol but did not having with her when the symptoms started so she was unable to take it. She states she takes propranolol because that is what she was told to take whenever she has these symptoms of SVT. Denies fevers, chills, shortness of breath, abdominal pain, dizziness, weakness, numbness. Related Data Home Medications ?Medication ?Instructions ?Recorded ?Confirmed albuterol sulfate 90 mcg/actuation 2 inh inhalation Q4H PRN 12/09/22 08/14/24 aerosol inhaler azelaic acid 15 % topical gel 1 applic topical DAILY 12/09/22 08/14/24 azelastine 137 mcg (0.1 %) nasal 1 spray intranasal Q12H 12/09/22 08/14/24 spray propranolol 20 mg tablet 10 mg PO ONCE PRN 12/09/22 08/14/24 fluticasone propionate 50 1 spray intranasal DAILY PRN 03/28/23 08/14/24 mcg/actuation nasal spray,suspension sulfacetamide sodium-sulfur 10 %-5 1 applic topical .PRN 01/23/24 08/14/24 % (w/w) topical cream Allergies Allergy/AdvReac Type Severity Reaction Status Date / Time doxycycline Allergy Mild Rash Verified 08/14/24 10:12 tetracycline Allergy Rash Verified 08/14/24 10:12 Review of Systems Status of ROS: Reports: 10 or more systems reviewed and unremarkable except as noted in History and below [facility] Medical History Hx of LEEP (loop electrosurgical excision procedure) of cervix complicating ?O34.40 - Maternal care for other abnormalities of cervix, unspecified trimester (ICD-10) ?Z98.890 - Other specified postprocedural states (ICD-10) Genital herpes (01/02/03) ?A60.00 - Herpesviral infection of urogenital system, unspecified (ICD-10) SVT (supraventricular tachycardia) ?I47.1 - Supraventricular tachycardia (ICD-10) Delivery normal (03/19/12) ?O80 - Encounter for full-term uncomplicated delivery (ICD-10) Surgical History Hx of wisdom tooth extraction ?K08.409 - Partial loss of teeth, unspecified cause, unspecified class (ICD-10) Family History Mother Bipolar 1 disorder Social History Smoking Status: Never smoker Do you use any of these nicotine containing products: None Second hand tobacco smoke exposure: No How often do you have a drink containing alcohol: never How often do you have six or more drinks on one occasion: Never AUDIT-C Alcohol total score: 0 Non-prescribed substance use: denies use Caffeine: Yes service: No Exam Narrative: Exam Narrative: Const: Well-nourished, Well-developed, in mild distress Eyes: PERRL, no conjunctival injection, and symmetrical lids HENT: Atraumatic external nose and ears. Moist mucous membranes. Neck: Symmetric, trachea midline, No thyromegaly. CVS: Tachycardic, No murmurs or gallops. Peripheral pulses 2+ and equal in all extremities RESP: Unlabored respiratory effort. Clear to auscultation bilaterally. GI: Nontender/Nondistended, No rebound or guarding. MSK:Extremities w/o deformity, Normal Active ROM Skin: Warm, Dry. No rashes or lesions. Neuro: Normal Muscle tone, No focal neurological deficits. Psych: Awake, Alert, & Oriented x3. Appropriate mood and affect. Const: Vital Signs, click to edit/add: Vital Signs - 24 hr 09/12/24 12:30 09/12/24 12:31 09/12/24 12:46 Temperature Pulse Rate Pulse Rate [Left P ulse Oximeter] Respiratory Rate Blood Pressure 137/80 144/83 H 121/80 Pulse Oximetry Oxygen Delivery Me thod 09/12/24 12:51 09/12/24 13:01 Temperature 98.0 F Pulse Rate 94 Pulse Rate [Left P ulse Oximeter] 180 H Respiratory Rate 18 16 Blood Pressure 109/80 Pulse Oximetry 98 Oxygen Delivery Me thod Room Air Course Vital Signs Vital signs: Initial Vital Signs Blood Pressure 137/80 09/12/24 12:30 Blood Pressure Mean 99 09/12/24 12:30 Vital Signs Blood Pressure 137/80 09/12/24 12:30 Temperature 98.0 F 09/12/24 12:51 Pulse Rate 94 09/12/24 13:01 Respiratory Rate 16 09/12/24 13:01 Blood Pressure 109/80 09/12/24 13:01 Pulse Oximetry 98 09/12/24 12:51 Oxygen Delivery Method Room Air 09/12/24 12:51 Medications Administered Medications: Discontinued Medications Generic Name Dose Route Start Last Admin Trade Name Samuelq PRN Reason Stop Dose Admin Potassium Bicarbonate 50 meq 09/12/24 13:25 09/12/24 13:30 Potassium Bicarb 25 Meq Effervescent Tab PO 09/12/24 13:26 50 meq ONCE ONE Administration Propranolol HCl 20 mg 09/12/24 12:39 09/12/24 12:46 Propranolol 20 Mg Tablet PO 09/12/24 12:40 20 mg ONCE ONE Administration MDM - Arrhythmia/Palpitations MDM Narrative Medical decision making narrative: Patient is a 44-year-old female presenting to emergency department for SVT. She initially had chest pain has since resolved. Will order CBC, magnesium, BMP, troponin, EKG. EKG does show sinus tachycardia with a rate of 159 beats per minute. I spoke to her about doing adenosine versus her propanolol. She wants to try her dose of propanolol prior to adenosine. I did explain to her my concern about her heart rate beating this fast for this length of time and she states she understands she states she will inform us immediately if she starts having chest pain or any other symptoms. Will give the propanolol watch her for 10-20 minutes to see if symptoms improve. She states usually takes about 20 minutes. Patient was given 20 mg of propranolol and after less than 20 minutes her tachycardia improved and now she has heart rate in the 90s. Repeat EKG shows no concerning findings. She states she feels slightly lightheaded when blood pressure was 109/80 which she states is low for her. She does admit that she feels like her lightheadedness is at its baseline. Lab work did return showing potassium of 2.9. She does states she has chronically low potassium, sodium, magnesium. Potassium was replenished with 50 mEq. Rest of her lab work shows no concerning findings. At this point I believe she is safe for discharge. She will follow up outpatient with her primary care provider and gmat instructor. She is agreeable to this plan. Lab Data Labs: Lab Results 09/12/24 Range/Units 12:25 WBC 10.30 (4.50-11.00) K/uL RBC 4.61 (4.00-5.20) m/uL Hgb 13.8 (12.0-16.0) gm/dL Hct 40.6 (33.0-51.0) % MCV 88 (80-100) fL MCH 30 (26-34) pg MCHC 34 (32-36) gm/dL RDW Coeff of Ruben 12.1 (11.5-15.5) % Plt Count 311 (140-440) K/uL Neut % (Auto) 51.3 (42.0-72.0) % Lymph % (Auto) 35.3 (20-44) % [place] % (Auto) 11.5 H (0.0-11.0) % Eos % (Auto) 1.0 (0.0-7.0) % Baso % (Auto) 0.3 (0.0-3.0) % Neut # (Auto) 5.29 (1.7-7.0) K/uL Lymph # (Auto) 3.64 H (0.90-2.90) K/uL [place] # (Auto) 1.20 H (0.00-0.90) K/UL Eos # (Auto) 0.10 (0.00-0.50) K/uL Baso # (Auto) 0.03 (0.00-0.30) K/uL Abs Immat Gran (auto) 0.06 (0.00-0.30) K/uL Imm/Tot Granulo (auto) 0.6 % Sodium 137 (135-149) mmol/L Potassium 2.9 L* (3.6-5.1) mmol/L Chloride 106 (96-114) mmol/L Carbon Dioxide 19 L (20-32) mmol/L Anion Gap 12 (7-15) mEq/L BUN 8 (5-24) mg/dL Creatinine 0.7 (0.5-1.5) mg/dL Estimated Creat Clear 94.01 Estimated GFR 108 ml/min Glucose 125 H (60-115) mg/dL Calcium 8.4 (8.4-10.6) mg/dL Magnesium 2.0 (1.5-2.6) mg/dL ECG Data Attestation: I personally reviewed and interpreted this ECG as follows: Prior ECG tracings: available for review Interpretation: Initial EKG: Sinus tachycardia with occasional PVC, rate of 159 beats per minute, normal QTC, normal QRS, normal axis, no obvious ST or T-wave abnormalities. Repeat EKG: Sinus rhythm with a rate 94 beats per minute, normal intervals, normal axis, no ST or T-wave abnormalities. EKG looks like previous EKG on 10/09/2022 Discharge Plan Discharge Clinical Impression: Supraventricular tachycardia, Acute hypokalemia Patient Disposition: Home, Self-Care Condition: Improved Instructions: Supraventricular Tachycardia (ED), Hypokalemia (ED) Additional Instructions: Have follow up with your primary care provider to have your potassium recheck. Also recommend following up with her gmat instructor. Return to emergency department with new or worsening symptoms Prescriptions: No Action sulfacetamide sodium-sulfur 10-5 % (w/w) cream 1 applic topical .PRN azelaic acid 15 % gel 1 applic topical DAILY albuterol sulfate 90 mcg/actuation HFA aerosol inhaler 2 inh inhalation Q4H PRN azelastine 137 mcg (0.1 %) aerosol,spray 1 spray intranasal Q12H Patient Comments: [NO ORIGINAL SIG] propranolol 20 mg tablet 10 mg PO ONCE PRN Patient Comments: was supposed to take prior to procedure per gmat instructor, but patient did not. Last took in Sep 2022. fluticasone propionate 50 mcg/actuation spray,suspension 1 spray intranasal DAILY PRN Rx Instructions: administer into each nostril Follow Up/Referrals: Alysia Longoria MD [Primary Care Provider] - Stand Alone Forms: [employer] Info Instructions
[2024-09-12 13:11] LABS: Chloride* 106 mmol/L (96-114)
[2024-09-12 13:12] LABS: Sodium* 137 mmol/L (135-149)
[2024-09-12 13:14] LABS: Creatinine* 0.7 mg/dL (0.5-1.5); Est. Creatinine Clearance* 94.01; Estimated Glomerular Filt Rate 108 ml/min
[2024-09-12 13:15] LABS: Anion Gap 12 mEq/L (7-15); Blood Urea Nitrogen* 8 mg/dL (5-24); Calcium* 8.4 mg/dL (8.4-10.6); Carbon Dioxide* 19 mmol/L (20-32); Glucose* 125 mg/dL (60-115)
[2024-09-12 13:20] LABS: Potassium* 2.9 mmol/L (3.6-5.1)
[2024-09-12] MEDS: POTASSIUM BICARB 25 MEQ EFFERVESCENT TAB 50 MEQ PO (13:30)
== END 2024-09-12 13:51 | disposition home or self-care (01) ==
PROVIDERS: Emergency Provider Student in an Organized Health Care Education/Training Program; PCP Family Medicine
DX: I47.10 Supraventricular tachycardia, unspecified (principal); E87.6 Hypokalemia
CPT/HCPCS: 36415; 80048; 83735; 84484; 85025; 99284; A9270

== ENCOUNTER 2024-10-28 14:30 | Outpatient (RCR) | payer OTHER, SELFPAY | END 2025-02-25 23:59 | disposition home or self-care (01) | PROVIDERS: PCP Family Medicine; Visit Provider Family Medicine | DX: M54.2 Cervicalgia (principal); G89.29 Other chronic pain; Z51.89 Encounter for other specified aftercare | CPT/HCPCS: 97110; 97140; 97161 ==

== ENCOUNTER 2025-03-26 11:52 | Outpatient (CLI) | payer OTHER, SELFPAY ==
[2025-03-29 10:20] LABS: HPV Source Vaginal Cuff
[2025-04-01 11:58] LABS: Pap Test Digital Imaging Done
== END 2025-03-26 11:53 | disposition home or self-care (01) ==
PROVIDERS: PCP Family Medicine; Visit Provider Obstetrics & Gynecology
DX: Z12.4 Encounter for screening for malignant neoplasm of cervix (principal); Z11.51 Encounter for screening for human papillomavirus (HPV)
CPT/HCPCS: 87624; 87625; 88141; 88142; 88175